=== PATIENT | male | born 1980 | race African-American/Black ===

== ENCOUNTER 2023-04-01 04:24 | Outpatient (BNV) | payer OTHER, SELFPAY | END 2023-04-14 13:37 | PROVIDERS: Admitting Provider Psychiatry & Neurology Psychiatry; Visit Provider Internal Medicine Cardiovascular Disease | DX: R94.31 Abnormal electrocardiogram [ECG] [EKG] (principal) | CPT/HCPCS: 93010 ==

== ENCOUNTER 2023-04-01 04:24 | Inpatient (IN) | payer OTHER, SELFPAY ==
[2023-04-01 04:10] VITALS: BP 128/68; PULSE 76; RESP 18; TEMP 36.6; O2SAT 97
--- NOTE | 2023-04-01 06:21 | PC.ADMIT ---
Patient is a 42 yr old male presenting to [facility] M5 from [facility] for AMS. Patient was wandering the streets for days just walking and ultimately found in an abandoned building in [place]. The patient is alert/oriented x2. RN told him where he was and he remembered over time. He had difficulty getting off the EMS stretcher and standing d/t the pain in his feet. Feet are visibly swollen through his socks. Patient states they are painful because they were wet and cold and he was walking on alot of stuff . Unsure if he was barefoot and what condition his feet are in. Visible skin is intact but odorous. He appears very paranoid and didnt seem to trust going into the treatment room. His vitals were stable. He absolutely refused to take off his socks after alot of coaxing but stated he would take them off for the doctor when they saw him. He is oriented to person and place. He doesnt make eye contact, appears to be thought blocking/ takes above average time to answer questions. He keeps his hand in front of his mouth which makes it difficult to understand him sometimes. He cannot state where he was living or where the last place he stayed was. He can tell service writer that he has a brother but doesnt know where he is or what his phone number is. He does state he smokes and would like nicotine replacement. Patient is calm and cooperative at this time. Will continue to monitor sleep overnight and behavioral issues.
[2023-04-01 07:00] VITALS: BMI 25.1
[2023-04-01] MEDS: HaloperidoL 5 MG TABLET PO ×2 (08:50→15:05)
[2023-04-01 09:46] VITALS: BP 127/66; PULSE 100; RESP 18; TEMP 36.9; O2SAT 98
--- NOTE | 2023-04-01 09:46 | HO.PSYADMNOT ---
HPI Date of Service: 04/01/23 Chief Complaint: Schizophrenia unspecified Sources of Information: patient interviewed, chart reviewed and crisis/core team assessment reviewed HPI Subjective Notes: Rea Warning and Conditional Voluntary Narrative: Pt is a 42 yo male with hx of Schizophrenia, homelessness who presents for disorganized behavior in community. On admission he is internally preoccupied, guarded, reticent. He denies AH, though internally pre-occupied. Pt is soft spoken, as personal lines underwriter gets a little closer to hear, he puts hand in front of his face as a shield; denies personal lines underwriter causing him alarm, but keeps up hand. Agrees to take Haldol. Otherwise, not willing to engage further. Past Psychiatric History: hx of psychosis, inpt admission Medical Evaluation Reviewed: Hospitalist Jaleel Pending ED note mentioned possible frostbite on b/l feet; personal lines underwriter discussed with hospitalist MATHEW who will examine [facility] Medical History (Updated 04/03/23 @ 11:59 by Corwin Ballard MD) Schizophrenia Family History: deferred Social History: homeless Trauma History: deferred Diagnostics Vital Signs (24Hr): Vital Signs - 24 hr 04/01/23 04:10 Temperature 97.9 F Pulse Rate 76 Respiratory Rate 18 Blood Pressure 128/68 Pulse Oximetry 97 Oxygen Delivery Method Room Air BMI result Body Mass Index 25.1 Meds/Allergies Allergies Allergies Allergy/AdvReac Type Severity Reaction Status Date / Time No Known Allergies Allergy Verified 04/01/23 05:25 Mental Status Exam Mental Status Exam Narrative: Pt is alert and oriented; behavior is guarded, isolative, calm; patient is not in distress; dressed in casual attire with unkempt hair, disheveled; described as good and affect blunted to constricted; eye contact avoidant; Speech is reticent, quiet; psychomotor retardation present; thought process goal directed with pronounced thought blocking; Thought content is not expressed; otherwise pertinent to relevant topics and without any delusional content, paranoid ideations or grandiosity; denies any SI/HI. Internally pre-occupied. Patients insight and judgment impaired. Assessment & Plan Assessment & Plan (1) Schizophrenia: Status: Acute Code(s): F20.9 - Schizophrenia, unspecified Plan Pt is a 42 yo male with hx of Schizophrenia, homelessness who presents for disorganized behavior in community. On admission he is internally preoccupied, guarded, reticent. He denies AH, though internally pre-occupied. Pt is soft spoken, as personal lines underwriter gets a little closer to hear, he puts hand in front of his face as a shield; denies personal lines underwriter causing him alarm, but keeps up hand. Agrees to take Haldol. Otherwise, not willing to engage further. will treat; collateral needed Plan: CV q15 min Started Haldol 5mg BID (records show hx of Zyprexa 15mg BID, however hx of poor adherence and zyprexa does not come in [facility]) gather collateral Patient educated on: diagnosis and medication risk/benefits Informed Consent: understands, does not understand and further education needed Reason for continued inpatient stay Substantial Risk for: inability to function Statement Statement: I have reviewed the history and physical and performed a pertinent examination on my patient. No changes have occurred unless specified. If the History and Physical was not performed prior to admission, the Hospitalist's service will be consulted for completing the admission physical. Time Spent With Patient Time: Total time managing care of this patient today ____ minutes.
--- NOTE | 2023-04-01 11:16 | P.CONHOSP_ITS ---
History of Present Illness Data of Consult Service Date: 04/01/23 Primary Care Provider: Unknown Physician HPI Reason for consult: Admission H&P Pt is a 42-year-old male with a PMH significant for?schizophrenia not on home medications who is admitted to M5 psychiatry unit for increasingly bizarre behaviors, disorganized speech, and disorganized thought processes. Patient apparently was found at an abandoned building in [place] after having been walking the streets and walking into traffic for the past 5 days. Patient also noted to likely be responding to internal stimuli. Patient at that time apparently complained that his hands and feet were broken, and was concerned for possible frostbite. Patient also apparently had wet and cold feet with macerated skin between his toes. Medical consult for admission H&P. ?Patient states that he has no medical conditions and is not any home prescription medications. Patient reports no acute medical complaints. Denies fever, chills, nausea, vomiting. No chest pain/pressure, palpitations. Denies fever, chills, nausea, vomiting, abdominal pain. No musculoskeletal pain. When attempt to the physical exam patient, particularly his hands and feet, patient refuses. Patient states that he does not wish to participate in the exam and states he feels fine. Review of Systems Review of Systems: Patient states he has no acute medical complaints at this time [facility] Social History Household Members: None Housing: Homeless Do you presently have visiting nurse or other home services: No Unable to assess alcohol history related to: Unable to respond Patient Tobacco Use Status: Current everyday Tobacco user Tobacco use type: Cigarette Smoked in Last 30 Days: Yes Patient Interested in Nicotine Replacement: Yes Patient Given Instructions on How to Stop Smoking: Yes Date Education Initiated: 04/01/23 Second Hand Smoke Exposure: No Use of substances other than those prescribed or required for medical reasons: Unable to respond Advance Directives: No Advance Directives Information Provided: No Recently lost weight without trying: Unsure Nutrition Risks: No Nutritional Risk Meds Allergies Allergy/AdvReac Type Severity Reaction Status Date / Time No Known Allergies Allergy Verified 04/01/23 05:25 Active Medications: Current Medications Acetaminophen (Acetaminophen 325 Mg Tablet) 650 mg PO Q6H PRN PRN Reason: Headache/Pain Mild Scale (1-3) Al Hydroxide/Mg Hydroxide (Magnesium Hydrox/Alum Hydrox 30 Ml Oral.Susp) 30 ml PO Q6H PRN PRN Reason: Heartburn/Nausea Diphenhydramine HCl (Diphenhydramine Hcl 25 Mg Capsule) 50 mg PO Q4H PRN PRN Reason: EPS/DYSTONIA Haloperidol (Haloperidol 5 Mg Tablet) 5 mg PO BID [facility] Last Admin: 04/01/23 08:50 Dose: 5 mg Hydroxyzine HCl (Hydroxyzine Hcl 25 Mg Tablet) 25 mg PO Q6H PRN PRN Reason: Anxiety Magnesium Hydroxide (Milk Of Magnesia 30 Ml Oral.Susp) 30 ml PO DAILY PRN PRN Reason: Constipation Nicotine (Nicotine 21 Mg Patch.Td24) 21 mg TRANSDERMA DAILY PRN PRN Reason: smoking cessation Nicotine Polacrilex (Nicotine Polacrilex 2 Mg Gum) 4 mg BUCCAL Q2H PRN PRN Reason: Nicotine Cravings Olanzapine (Olanzapine 5 Mg Tablet) 5 mg PO TID PRN PRN Reason: agitation Trazodone HCl (Trazodone Hcl 50 Mg Tablet) 50 mg PO BEDTIME MRX1 PRN PRN Reason: Insomnia Physical Exam Vital Signs and Narrative: Vital Signs: Last Vital Signs Temp 98.4 F 04/01/23 09:46 Pulse 100 04/01/23 09:46 Resp 18 04/01/23 09:46 BP 127/66 04/01/23 09:46 Pulse Ox 98 04/01/23 09:46 O2 Del Method Room Air 04/01/23 09:46 BMI result Body Mass Index 25.1 Patient refuses to participate in exam General: AOx3, no acute distress Resp: No respiratory distress, breathing easily, speaking in full sentences Neuro: Motor grossly intact bilaterally Psych: Flat affect Assessment and Plan (1) Medical clearance for psychiatric admission: Status: Acute Plan Pt is a 42-year-old male with a PMH significant for?schizophrenia not on home medications who is admitted to M5 psychiatry unit for increasingly bizarre behaviors, disorganized speech, and disorganized thought processes. Patient apparently was found at an abandoned building in [place] after having been walking the streets and walking into traffic for the past 5 days. Patient also noted to likely be responding to internal stimuli. Patient at that time apparently complained that his hands and feet were broken, and was concerned for possible frostbite. Patient also apparently had wet and cold feet with macerated skin between his toes. Medical consult for admission H&P. ? Mood disorder Plan as per Psychiatry Question of frostbite Patient refused examination Treat symptomatically Re-consult as necessary Patient denies any significant PMH, chronic conditions, or acute medical complaints at this time. Thank you for allowing us to participate in the care of this patient. Signing off at this time. Please re-consult if any acute complaints or issues arise.
[2023-04-02] MEDS: HaloperidoL 5 MG TABLET PO ×2 (08:13→14:21)
[2023-04-02] MEDS: Benztropine Mesylate 0.5 MG TABLET PO (08:13)
[2023-04-02 08:28] VITALS: BP 145/82; PULSE 70; RESP 16; TEMP 36.7; O2SAT 98
--- NOTE | 2023-04-02 09:08 | PC.NURSE ---
Pt offered and declined flu shot.
--- NOTE | 2023-04-02 09:46 | P.PNPSI_ITS ---
Subjective Subjective Date of Service: 04/02/23 Reason For Visit: Schizophrenia unspecified Subjective Notes: 3 Day Interim History: met with patient; discussed in team pt remains reticent, guarded with this communications writer; says he's good, does not need anything...asking about discharge, though agrees he needs more help. Difficult with which to engage. However with select staff (female nurse), much more open, saying he'll remain on unit knowing he needs further help, making appropriate requests, getting needs met... Mental Status Exam Mental Status Exam Narrative: Pt is alert and oriented; behavior is selectively guarded and reticent; calm, mostly keeping to himself; patient is not in distress; dressed in casual attire with unkempt hair, disheveled; described as good and affect blunted to constricted; eye contact avoidant; Speech is reticent, quiet; some psychomotor retardation present; thought process goal directed, still with thought blocking but much less so; Thought content is on tx; ambivalent about staying for help vs discharge; denies any SI/HI. Internally pre-occupied. Patients insight and judgment impaired but some improving. Diagnostics Vital Signs (24Hr): Vital Signs - 24 hr 04/02/23 08:28 Temperature 98.0 F Pulse Rate 70 Respiratory Rate 16 Blood Pressure 145/82 H Pulse Oximetry 98 Oxygen Delivery Method Room Air BMI result Body Mass Index 25.1 Medications Medications Current Medications Acetaminophen (Acetaminophen 325 Mg Tablet) 650 mg PO Q6H PRN PRN Reason: Headache/Pain Mild Scale (1-3) Al Hydroxide/Mg Hydroxide (Magnesium Hydrox/Alum Hydrox 30 Ml Oral.Susp) 30 ml PO Q6H PRN PRN Reason: Heartburn/Nausea Benztropine Mesylate (Benztropine Mesylate 0.5 Mg Tablet) 0.5 mg PO BID [facility] Last Admin: 04/02/23 08:13 Dose: 0.5 mg Diphenhydramine HCl (Diphenhydramine Hcl 25 Mg Capsule) 50 mg PO Q4H PRN PRN Reason: EPS/DYSTONIA Haloperidol (Haloperidol 5 Mg Tablet) 5 mg PO BID@0900,1500 [facility] Last Admin: 04/02/23 08:13 Dose: 5 mg Hydroxyzine HCl (Hydroxyzine Hcl 25 Mg Tablet) 25 mg PO Q6H PRN PRN Reason: Anxiety Magnesium Hydroxide (Milk Of Magnesia 30 Ml Oral.Susp) 30 ml PO DAILY PRN PRN Reason: Constipation Nicotine (Nicotine 21 Mg Patch.Td24) 21 mg TRANSDERMA DAILY PRN PRN Reason: smoking cessation Nicotine Polacrilex (Nicotine Polacrilex 2 Mg Gum) 4 mg BUCCAL Q2H PRN PRN Reason: Nicotine Cravings Olanzapine (Olanzapine 5 Mg Tablet) 5 mg PO TID PRN PRN Reason: agitation Trazodone HCl (Trazodone Hcl 50 Mg Tablet) 50 mg PO BEDTIME MRX1 PRN PRN Reason: Insomnia Allergies Allergies Allergy/AdvReac Type Severity Reaction Status Date / Time No Known Allergies Allergy Verified 04/01/23 05:25 Assessment & Plan Assessment & Plan (1) Medical clearance for psychiatric admission: Status: Acute Code(s): Z00.8 - Encounter for other general examination Plan Pt is a 42 yo male with hx of Schizophrenia, homelessness who presents for disorganized behavior in community, walking into street, in traffic, found in abandoned building... On admission he is internally preoccupied, guarded, reticent. He denies AH, though internally pre-occupied. Pt is soft spoken, as communications writer gets a little closer to hear, he puts hand in front of his face as a shield; denies communications writer causing him alarm, but keeps up hand. Agrees to take Haldol. Otherwise, not willing to engage further. / little better with haldo; willing to engage with female nursing staff, though still quite reticent, guarded with communications writer -again refused to have feet examined -SW getting in touch w/ outpt support team Plan: CV q15 min Increase to Haldol 10mg BID (hx of Zyprexa 15mg BID, however hx of poor adherence and zyprexa does not come in [facility]) added cogentin 0.5mg BID since records show hx of this med gather collateral -would not let Hospitalist PA examine feet; refused again today Patient educated on: diagnosis Informed Consent: does not understand and further education needed Reason for continued inpatient stay Substantial Risk for: rapid decompensation Time Spent With Patient Time: Total time managing care of this patient today ____ minutes.
[2023-04-03 09:01] VITALS: RESP 16
--- NOTE | 2023-04-03 09:37 | P.PNPSI_ITS ---
Subjective Subjective Date of Service: 04/03/23 Reason For Visit: Schizophrenia unspecified Subjective Notes: Conditional Voluntary Interim History: Patient was seen and discussed in rounds today. Records and plans were reviewed. He has having some response to internal stimuli. Affect is flat. Has some thought blocking at times. No complaints or side effects. Eating and sleeping adequately. No SI Review of Systems Review of Systems Patient states he has no acute medical complaints at this time Mental Status Exam Mental Status Exam Narrative: In today's visit he is alert, oriented and pleasant. Normal speech. Moderate eye contact. Affect is constricted. No acute signs of psychosis. Some thought blocking present. No SI. Cognitively is grossly intact. Judgment is mostly intact Diagnostics Vital Signs (24Hr): Vital Signs - 24 hr 04/03/23 09:01 Respiratory Rate 16 BMI result Body Mass Index 25.1 Medications Medications Current Medications Acetaminophen (Acetaminophen 325 Mg Tablet) 650 mg PO Q6H PRN PRN Reason: Headache/Pain Mild Scale (1-3) Al Hydroxide/Mg Hydroxide (Magnesium Hydrox/Alum Hydrox 30 Ml Oral.Susp) 30 ml PO Q6H PRN PRN Reason: Heartburn/Nausea Benztropine Mesylate (Benztropine Mesylate 0.5 Mg Tablet) 0.5 mg PO BID REPLACED BY [facility] Last Admin: 04/03/23 08:38 Dose: Not Given Diphenhydramine HCl (Diphenhydramine Hcl 25 Mg Capsule) 50 mg PO Q4H PRN PRN Reason: EPS/DYSTONIA Haloperidol (Haloperidol 5 Mg Tablet) 10 mg PO BID@0900,1500 REPLACED BY [facility] Last Admin: 04/03/23 08:38 Dose: Not Given Hydroxyzine HCl (Hydroxyzine Hcl 25 Mg Tablet) 25 mg PO Q6H PRN PRN Reason: Anxiety Magnesium Hydroxide (Milk Of Magnesia 30 Ml Oral.Susp) 30 ml PO DAILY PRN PRN Reason: Constipation Nicotine (Nicotine 21 Mg Patch.Td24) 21 mg TRANSDERMA DAILY PRN PRN Reason: smoking cessation Nicotine Polacrilex (Nicotine Polacrilex 2 Mg Gum) 4 mg BUCCAL Q2H PRN PRN Reason: Nicotine Cravings Olanzapine (Olanzapine 5 Mg Tablet) 5 mg PO TID PRN PRN Reason: agitation Trazodone HCl (Trazodone Hcl 50 Mg Tablet) 50 mg PO BEDTIME MRX1 PRN PRN Reason: Insomnia Allergies Allergies Allergy/AdvReac Type Severity Reaction Status Date / Time No Known Allergies Allergy Verified 04/01/23 05:25 Assessment & Plan Assessment & Plan (1) Medical clearance for psychiatric admission: Status: Acute Code(s): Z00.8 - Encounter for other general examination Plan Pt is a 42-year-old male with a PMH significant for?schizophrenia not on home medications who is admitted to [facility] psychiatry unit for increasingly bizarre behaviors, disorganized speech, and disorganized thought processes. Patient apparently was found at an abandoned building in [place] after having been walking the streets and walking into traffic for the past 5 days. Patient also noted to likely be responding to internal stimuli. Patient at that time apparently complained that his hands and feet were broken, and was concerned for possible frostbite. Patient also apparently had wet and cold feet with macerated skin between his toes. Medical consult for admission H&P. ? Mood disorder Plan as per Psychiatry Question of frostbite Patient refused examination Treat symptomatically Re-consult as necessary Patient denies any significant PMH, chronic conditions, or acute medical complaints at this time. Thank you for allowing us to participate in the care of this patient. Signing off at this time. Please re-consult if any acute complaints or issues arise. 04/03/23: Continue current regimen and plans Reason for continued inpatient stay Substantial Risk for: med/psych decompensation Time Spent With Patient Time: Total time managing care of this patient today ____ minutes.
[2023-04-04] MEDS: Acetaminophen 325 MG TABLET 650 MG PO (08:27)
[2023-04-04 08:32] VITALS: RESP 16
--- NOTE | 2023-04-04 09:23 | P.PNPSI_ITS ---
Subjective Subjective Date of Service: 04/04/23 Reason For Visit: Schizophrenia unspecified Subjective Notes: Conditional Voluntary Interim History: Patient was seen and discussed in rounds today. Records and plans were reviewed. He he continues to be quite isolative, mostly in his room. Today was complaining of foot and leg pain. In the emergency room there was some consideration of possible frostbite. To the nurse's observation there were some old open blisters. I also encouraged him to take a hot shower which he has been refusing to do. Eating and sleeping adequately. Refused nighttime meds and continues to complain of some tingling sensations in his feet and hands. No changes were made today Review of Systems Review of Systems Leg and foot pain Yes all other systems are reviewed and are negative Diagnostics Vital Signs (24Hr): Vital Signs - 24 hr 04/04/23 08:32 Respiratory Rate 16 BMI result Body Mass Index 25.1 Medications Medications Current Medications Acetaminophen (Acetaminophen 325 Mg Tablet) 650 mg PO Q6H PRN PRN Reason: Headache/Pain Mild Scale (1-3) Last Admin: 04/04/23 08:27 Dose: 650 mg Al Hydroxide/Mg Hydroxide (Magnesium Hydrox/Alum Hydrox 30 Ml Oral.Susp) 30 ml PO Q6H PRN PRN Reason: Heartburn/Nausea Benztropine Mesylate (Benztropine Mesylate 0.5 Mg Tablet) 0.5 mg PO BID [facility] Last Admin: 04/04/23 08:29 Dose: Not Given Diphenhydramine HCl (Diphenhydramine Hcl 25 Mg Capsule) 50 mg PO Q4H PRN PRN Reason: EPS/DYSTONIA Haloperidol (Haloperidol 5 Mg Tablet) 10 mg PO BID@0900,1500 [facility] Last Admin: 04/04/23 08:29 Dose: Not Given Hydroxyzine HCl (Hydroxyzine Hcl 25 Mg Tablet) 25 mg PO Q6H PRN PRN Reason: Anxiety Magnesium Hydroxide (Milk Of Magnesia 30 Ml Oral.Susp) 30 ml PO DAILY PRN PRN Reason: Constipation Nicotine (Nicotine 21 Mg Patch.Td24) 21 mg TRANSDERMA DAILY PRN PRN Reason: smoking cessation Nicotine Polacrilex (Nicotine Polacrilex 2 Mg Gum) 4 mg BUCCAL Q2H PRN PRN Reason: Nicotine Cravings Olanzapine (Olanzapine 5 Mg Tablet) 5 mg PO TID PRN PRN Reason: agitation Trazodone HCl (Trazodone Hcl 50 Mg Tablet) 50 mg PO BEDTIME MRX1 PRN PRN Reason: Insomnia Allergies Allergies Allergy/AdvReac Type Severity Reaction Status Date / Time No Known Allergies Allergy Verified 04/01/23 05:25 Assessment & Plan Assessment & Plan (1) Medical clearance for psychiatric admission: Status: Acute Code(s): Z00.8 - Encounter for other general examination Plan Pt is a 42 yo male with hx of Schizophrenia, homelessness who presents for disorganized behavior in community, walking into street, in traffic, found in abandoned building... On admission he is internally preoccupied, guarded, reticent. He denies AH, though internally pre-occupied. Pt is soft spoken, as food writer gets a little closer to hear, he puts hand in front of his face as a shield; denies food writer causing him alarm, but keeps up hand. Agrees to take Haldol. Otherwise, not willing to engage further. 04/02 little better with haldo; willing to engage with female nursing staff, though still quite reticent, guarded with food writer -again refused to have feet examined -SW getting in touch w/ outpt support team 04/04/2023: Continue current regimen and plans encouraged to take shower Plan: CV q15 min Increase to Haldol 10mg BID (hx of Zyprexa 15mg BID, however hx of poor adherence and zyprexa does not come in04/04/2023: Continue current regimen and plans [facility]) added cogentin 0.5mg BID since records show hx of this med gather collateral -would not let Hospitalist PA examine feet; refused again today Reason for continued inpatient stay Substantial Risk for: med/psych decompensation Time Spent With Patient Time: Total time managing care of this patient today ____ minutes.
[2023-04-05 08:13] VITALS: RESP 16
[2023-04-05] MEDS: Acetaminophen 325 MG TABLET 650 MG PO (08:18)
--- NOTE | 2023-04-05 09:51 | HO.PSYCHPN ---
Subjective Subjective Date of Service: 04/05/23 Reason For Visit: Schizophrenia unspecified Subjective Notes: Rea Warning (gave again on 04/05/23) Interim History: met with patient; discussed with team gave Rea Warning little more talkative; pt showered over weekend, out of his room a little more pt has been refusing medication...when asked why, he says because of my feet but cannot explain further. Rig Supervisor asked if pt would allow to examine his feet, but pt refuses as he di the nurse earlier. Rig Supervisor explained that perhaps if patient would take the Haldol, he might feel better about allowing his feet to be examined. pt considered and agreed this might be true and said he'd start taking the medication again (though still not willing to let his feet be examined Mental Status Exam Mental Status Exam Narrative: Pt is alert and oriented; behavior is selectively guarded and reticent but less so; calm, mostly keeping to himself; patient is not in distress; dressed in casual attire with unkempt hair, but improved hygiene/showered; mood is good but affect blunted to constricted; eye contact avoidant; Speech is reticent, quiet; some psychomotor retardation present; thought process can be goal directed; still with thought blocking but less so; Thought content is on feet, ambivalent about staying for help vs discharge; denies any SI/HI. Internally pre-occupied. Patients insight and judgment impaired but some improving. Diagnostics Vital Signs (24Hr): Vital Signs - 24 hr 04/05/23 08:13 Respiratory Rate 16 BMI result Body Mass Index 25.1 Medications Medications Current Medications Acetaminophen (Acetaminophen 325 Mg Tablet) 650 mg PO Q6H PRN PRN Reason: Headache/Pain Mild Scale (1-3) Last Admin: 04/05/23 08:18 Dose: 650 mg Al Hydroxide/Mg Hydroxide (Magnesium Hydrox/Alum Hydrox 30 Ml Oral.Susp) 30 ml PO Q6H PRN PRN Reason: Heartburn/Nausea Benztropine Mesylate (Benztropine Mesylate 0.5 Mg Tablet) 0.5 mg PO BID KATE Last Admin: 04/05/23 08:23 Dose: Not Given Diphenhydramine HCl (Diphenhydramine Hcl 25 Mg Capsule) 50 mg PO Q4H PRN PRN Reason: EPS/DYSTONIA Haloperidol (Haloperidol 5 Mg Tablet) 10 mg PO BID@0900,1500 KATE Last Admin: 04/05/23 08:23 Dose: Not Given Hydroxyzine HCl (Hydroxyzine Hcl 25 Mg Tablet) 25 mg PO Q6H PRN PRN Reason: Anxiety Magnesium Hydroxide (Milk Of Magnesia 30 Ml Oral.Susp) 30 ml PO DAILY PRN PRN Reason: Constipation Nicotine (Nicotine 21 Mg Patch.Td24) 21 mg TRANSDERMA DAILY PRN PRN Reason: smoking cessation Nicotine Polacrilex (Nicotine Polacrilex 2 Mg Gum) 4 mg BUCCAL Q2H PRN PRN Reason: Nicotine Cravings Olanzapine (Olanzapine 5 Mg Tablet) 5 mg PO TID PRN PRN Reason: agitation Trazodone HCl (Trazodone Hcl 50 Mg Tablet) 50 mg PO BEDTIME MRX1 PRN PRN Reason: Insomnia Allergies Allergies Allergy/AdvReac Type Severity Reaction Status Date / Time No Known Allergies Allergy Verified 04/01/23 05:25 Assessment & Plan Assessment & Plan (1) Medical clearance for psychiatric admission: Status: Acute Code(s): Z00.8 - Encounter for other general examination Plan Pt is a 42 yo male with hx of Schizophrenia, homelessness who presents for disorganized behavior in community, walking into street, in traffic, found in abandoned building... On admission he is internally preoccupied, guarded, reticent. He denies AH, though internally pre-occupied. Pt is soft spoken, as automobile and property underwriter gets a little closer to hear, he puts hand in front of his face as a shield; denies automobile and property underwriter causing him alarm, but keeps up hand. Agrees to take Haldol. Otherwise, not willing to engage further. 04/02 little better with haldo; willing to engage with female nursing staff, though still quite reticent, guarded with automobile and property underwriter -again refused to have feet examined -SW getting in touch w/ outpt support team 04/04/2023: Continue current regimen and plans encouraged to take shower 04/05 little more talkative; pt showered over weekend, out of his room a little more pt has been refusing medication...when asked why, he says because of my feet but cannot explain further. Rig Supervisor asked if pt would allow to examine his feet, but pt refuses as he di the nurse earlier. later agreed to take Haldol which he did, but still not willing to let his feet be examined) Plan: CV q15 min re-consult hospitalist when willing to let feet be examined (c/o pain; concern for frostbite) Continue Haldol 10mg BID (hx of Zyprexa 15mg BID, however hx of poor adherence and zyprexa does not come in04/04/2023: Continue current regimen and plans LIRIANO) added cogentin 0.5mg BID since records show hx of this med gather collateral -would not let Hospitalist PA examine feet; refused again today Patient educated on: diagnosis, medication risk/benefits and medical condition Informed Consent: understands, does not understand and further education needed Reason for continued inpatient stay Substantial Risk for: inability to function Time Spent With Patient Time: Total time managing care of this patient today ____ minutes.
[2023-04-05] MEDS: Ibuprofen 600 MG TABLET PO (10:00)
[2023-04-05] MEDS: Benztropine Mesylate 0.5 MG TABLET PO (11:53)
[2023-04-05] MEDS: HaloperidoL 5 MG TABLET 10 MG PO (11:53)
[2023-04-05 16:12] VITALS: BP 133/122; PULSE 94; RESP 17; TEMP 36.7
--- NOTE | 2023-04-05 19:36 | PC.NURSE ---
Assumed care of this pt at 19:30. Laying in bed and making appropriate eye contact with this news writer. Appears in no apparent distress. Offers no complaints @ this time. Plan of care ongoing.
--- NOTE | 2023-04-05 21:09 | PC.NURSE ---
BP was noted to be elevated earlier in shift @ 133/122. PT refused a recheck of VS. Laying in bed, not endorsing any complaints at this time. Resp even and unlabored. Refused evening medications.
[2023-04-06 08:45] VITALS: BP 167/106; PULSE 104; RESP 18; TEMP 36.9
[2023-04-06] MEDS: HaloperidoL 5 MG TABLET 10 MG PO ×2 (08:52→14:30)
[2023-04-06] MEDS: Benztropine Mesylate 0.5 MG TABLET PO (08:53)
[2023-04-06] MEDS: Ibuprofen 600 MG TABLET PO ×2 (08:53→17:53)
--- NOTE | 2023-04-06 09:48 | P.PNPSI_ITS ---
Subjective Subjective Date of Service: 04/06/23 Reason For Visit: Schizophrenia unspecified Interim History: met with patient; discussed with team Patient warmed up a little and more interactive with mortgage or loan underwriter. He has been taking medications and says that he is trying to get better. Still will not let mortgage or loan underwriter anyone examine his feet but says pain is less. Discussed how director of social media marketing is working on aftercare plans and he is thankful. He reports he is sleeping well and eating well and has no other complaints. Mental Status Exam Mental Status Exam Narrative: Pt is alert and oriented; behavior is selectively guarded and reticent but less so; calm, mostly keeping to himself; patient is not in distress; dressed in casual attire with unkempt hair, but improved hygiene/showered; mood is good but affect blunted to constricted; eye contact avoidant; Speech is reticent, quiet; some psychomotor retardation present; thought process can be goal directed; still with thought blocking but less so; Thought content is on feet, ambivalent about staying for help vs discharge; denies any SI/HI. Internally pre-occupied. Patients insight and judgment impaired but some improving. Diagnostics Vital Signs (24Hr): Vital Signs - 24 hr 04/05/23 16:12 04/06/23 08:45 Temperature 98.1 F 98.4 F Pulse Rate 94 104 H Respiratory Rate 17 18 Blood Pressure 133/122 H 167/106 H BMI result Body Mass Index 25.1 Medications Medications Current Medications Acetaminophen (Acetaminophen 325 Mg Tablet) 650 mg PO Q6H PRN PRN Reason: Headache/Pain Mild Scale (1-3) Last Admin: 04/05/23 08:18 Dose: 650 mg Al Hydroxide/Mg Hydroxide (Magnesium Hydrox/Alum Hydrox 30 Ml Oral.Susp) 30 ml PO Q6H PRN PRN Reason: Heartburn/Nausea Benztropine Mesylate (Benztropine Mesylate 0.5 Mg Tablet) 0.5 mg PO BID [facility] Last Admin: 04/06/23 08:53 Dose: 0.5 mg Diphenhydramine HCl (Diphenhydramine Hcl 25 Mg Capsule) 50 mg PO Q4H PRN PRN Reason: EPS/DYSTONIA Haloperidol (Haloperidol 5 Mg Tablet) 10 mg PO BID [facility] Last Admin: 04/06/23 08:52 Dose: 10 mg Hydroxyzine HCl (Hydroxyzine Hcl 25 Mg Tablet) 25 mg PO Q6H PRN PRN Reason: Anxiety Ibuprofen (Ibuprofen 600 Mg Tablet) 600 mg PO Q8H PRN PRN Reason: Pain, Mild (Pain Scale 1-3) Last Admin: 04/06/23 08:53 Dose: 600 mg Magnesium Hydroxide (Milk Of Magnesia 30 Ml Oral.Susp) 30 ml PO DAILY PRN PRN Reason: Constipation Nicotine (Nicotine 21 Mg Patch.Td24) 21 mg TRANSDERMA DAILY PRN PRN Reason: smoking cessation Nicotine Polacrilex (Nicotine Polacrilex 2 Mg Gum) 4 mg BUCCAL Q2H PRN PRN Reason: Nicotine Cravings Olanzapine (Olanzapine 5 Mg Tablet) 5 mg PO TID PRN PRN Reason: agitation Trazodone HCl (Trazodone Hcl 50 Mg Tablet) 50 mg PO BEDTIME MRX1 PRN PRN Reason: Insomnia Allergies Allergies Allergy/AdvReac Type Severity Reaction Status Date / Time No Known Allergies Allergy Verified 04/01/23 05:25 Assessment & Plan Assessment & Plan (1) Schizophrenia: Status: Acute Code(s): F20.9 - Schizophrenia, unspecified Plan Pt is a 42 yo male with hx of Schizophrenia, homelessness who presents for disorganized behavior in community, walking into street, in traffic, found in abandoned building... On admission he is internally preoccupied, guarded, reticent. He denies AH, though internally pre-occupied. Pt is soft spoken, as mortgage or loan underwriter gets a little closer to hear, he puts hand in front of his face as a shield; denies mortgage or loan underwriter causing him alarm, but keeps up hand. Agrees to take Haldol. Otherwise, not willing to engage further. 04/02 little better with haldo; willing to engage with female nursing staff, though still quite reticent, guarded with mortgage or loan underwriter -again refused to have feet examined -SW getting in touch w/ outpt support team 04/04/2023: Continue current regimen and plans encouraged to take shower 04/05 little more talkative; pt showered over weekend, out of his room a little more pt has been refusing medication...when asked why, he says because of my feet but cannot explain further. Pulverizer asked if pt would allow to examine his feet, but pt refuses as he di the nurse earlier. later agreed to take Haldol which he did, but still not willing to let his feet be examined) 04/06 patient warming up some, less guarded and interacting more. Still will not let anyone examine his feet but says they are not hurting as much. Patient has hypertension but given his extreme reticent, chronically guarded nature and risk of overwhelming him,, will hold off discussing this as treatment is more medication about which patient already has much ambivalence. -discussed with director of social media marketing who says patient has fairly extensive outpatient support however he is typically to disorganized to partake. Plan: CV q15 min re-consult hospitalist when willing to let feet be examined (c/o pain; concern for frostbite) Continue Haldol 10mg BID (hx of Zyprexa 15mg BID, however hx of poor adherence and zyprexa does not come in04/04/2023: Continue current regimen and plans LIRIANO) cogentin 0.5mg BID since records show hx of this med gather collateral -would not let Hospitalist PA examine feet; refused again today Patient educated on: diagnosis, medication risk/benefits and medical condition Informed Consent: further education needed Reason for continued inpatient stay Substantial Risk for: inability to function Time Spent With Patient Time: Total time managing care of this patient today ____ minutes.
[2023-04-06 14:32] VITALS: BP 146/112; PULSE 90; RESP 16; O2SAT 96
[2023-04-07 08:37] VITALS: BP 161/98; PULSE 97; RESP 16; TEMP 36.9; O2SAT 100
[2023-04-07] MEDS: HaloperidoL 5 MG TABLET 10 MG PO ×2 (08:38→14:58)
[2023-04-07] MEDS: Benztropine Mesylate 0.5 MG TABLET PO (08:39)
--- NOTE | 2023-04-07 09:52 | P.PNPSI_ITS ---
Subjective Subjective Date of Service: 04/07/23 Reason For Visit: Schizophrenia unspecified Interim History: met with patient; discussed with team Patient showered today, with encouragement also allowed his clothes to be washed. Thankfully patient allowed specific nurses to examine his feet and they report exam was unremarkable. Patient a little less guarded, says that he is good and denies AH though remains internally preoccupied. He asked about discharge but said he will remain on the unit for help with housing. Patient met with outpatient team today who also discussed housing with him. Mental Status Exam Mental Status Exam Narrative: Pt is alert and oriented; behavior is selectively guarded and reticent but less so; calm, mostly keeping to himself; patient is not in distress; dressed in casual attire with unkempt hair, but improved hygiene/showered; mood is good but affect blunted to constricted; eye contact avoidant; Speech is reticent, quiet; some psychomotor retardation present; thought process can be goal directed; still with thought blocking but less so; Thought content is on feet, ambivalent about staying for help vs discharge; denies any SI/HI. Internally pre-occupied. Patients insight and judgment impaired but some improving. Diagnostics Vital Signs (24Hr): Vital Signs - 24 hr 04/06/23 14:32 04/07/23 08:37 Temperature 98.4 F Pulse Rate 90 97 Respiratory Rate 16 16 Blood Pressure 146/112 H 161/98 H Pulse Oximetry 96 100 Oxygen Delivery Method Room Air Room Air BMI result Body Mass Index 25.1 Labs 04/08/23 14:22 Medications Medications Current Medications Acetaminophen (Acetaminophen 325 Mg Tablet) 650 mg PO Q6H PRN PRN Reason: Headache/Pain Mild Scale (1-3) Last Admin: 04/05/23 08:18 Dose: 650 mg Al Hydroxide/Mg Hydroxide (Magnesium Hydrox/Alum Hydrox 30 Ml Oral.Susp) 30 ml PO Q6H PRN PRN Reason: Heartburn/Nausea Benztropine Mesylate (Benztropine Mesylate 0.5 Mg Tablet) 0.5 mg PO BID KATE Last Admin: 04/07/23 08:39 Dose: 0.5 mg Diphenhydramine HCl (Diphenhydramine Hcl 25 Mg Capsule) 50 mg PO Q4H PRN PRN Reason: EPS/DYSTONIA Haloperidol (Haloperidol 5 Mg Tablet) 10 mg PO BID@0900,1500 KATE Last Admin: 04/07/23 08:38 Dose: 10 mg Hydroxyzine HCl (Hydroxyzine Hcl 25 Mg Tablet) 25 mg PO Q6H PRN PRN Reason: Anxiety Ibuprofen (Ibuprofen 600 Mg Tablet) 600 mg PO Q8H PRN PRN Reason: Pain, Mild (Pain Scale 1-3) Last Admin: 04/06/23 17:53 Dose: 600 mg Magnesium Hydroxide (Milk Of Magnesia 30 Ml Oral.Susp) 30 ml PO DAILY PRN PRN Reason: Constipation Nicotine (Nicotine 21 Mg Patch.Td24) 21 mg TRANSDERMA DAILY PRN PRN Reason: smoking cessation Nicotine Polacrilex (Nicotine Polacrilex 2 Mg Gum) 4 mg BUCCAL Q2H PRN PRN Reason: Nicotine Cravings Olanzapine (Olanzapine 5 Mg Tablet) 5 mg PO TID PRN PRN Reason: agitation Trazodone HCl (Trazodone Hcl 50 Mg Tablet) 50 mg PO BEDTIME MRX1 PRN PRN Reason: Insomnia Allergies Allergies Allergy/AdvReac Type Severity Reaction Status Date / Time No Known Allergies Allergy Verified 04/01/23 05:25 Assessment & Plan Assessment & Plan (1) Medical clearance for psychiatric admission: Status: Acute Code(s): Z00.8 - Encounter for other general examination Plan Pt is a 42 yo male with hx of Schizophrenia, homelessness who presents for disorganized behavior in community, walking into street, in traffic, found in abandoned building... On admission he is internally preoccupied, guarded, reticent. He denies AH, though internally pre-occupied. Pt is soft spoken, as ghost writer gets a little closer to hear, he puts hand in front of his face as a shield; denies ghost writer causing him alarm, but keeps up hand. Agrees to take Haldol. Otherwise, not willing to engage further. 04/02 little better with haldo; willing to engage with female nursing staff, though still quite reticent, guarded with ghost writer -again refused to have feet examined -SW getting in touch w/ outpt support team 04/04/2023: Continue current regimen and plans encouraged to take shower 04/05 little more talkative; pt showered over weekend, out of his room a little more pt has been refusing medication...when asked why, he says because of my feet but cannot explain further. Hvac Tech asked if pt would allow to examine his feet, but pt refuses as he di the nurse earlier. later agreed to take Haldol which he did, but still not willing to let his feet be examined) 04/06 patient warming up some, less guarded and interacting more. Still will not let anyone examine his feet but says they are not hurting as much. Patient has hypertension but given his extreme reticent, chronically guarded nature and risk of overwhelming him,, will hold off discussing this as treatment is more medication about which patient already has much ambivalence. -discussed with vp digital marketing social media and crm who says patient has fairly extensive outpatient support however he is typically to disorganized to partake. 04/07 allowed feet to be examined by a specific nurse who reports unremarkable. Patient does complain of some tingling in hands and feet which he thinks was due to being out in the cold. Little less guarded, open to staying on the unit for help with housing. Still remains internally preoccupied though denies AH. Still hypertensive. Although a little bit improved, patient is still disorganized and if discharged at this time, would end up homeless and exposed to the elements, unable to get himself halfway or take care of himself in the community. Plan: CV q15 min Continue Haldol 10mg BID (hx of Zyprexa 15mg BID, however hx of poor adherence and zyprexa does not come in04/04/2023: Continue current regimen and plans LIRIANO) added cogentin 0.5mg BID prn since records show hx of this med Patient educated on: diagnosis and medication risk/benefits Informed Consent: understands, does not understand and further education needed Reason for continued inpatient stay Substantial Risk for: inability to function Time Spent With Patient Time: Total time managing care of this patient today ____ minutes.
[2023-04-07] MEDS: Ibuprofen 600 MG TABLET PO (14:58)
[2023-04-08] MEDS: HaloperidoL 5 MG TABLET 10 MG PO ×2 (08:31→13:55)
[2023-04-08 09:32] VITALS: BP 161/106; PULSE 100; RESP 16; TEMP 36.4; O2SAT 100
[2023-04-08] MEDS: lisinopriL 5 MG TABLET PO (10:28)
[2023-04-08 10:30] VITALS: BP 157/100; PULSE 97
[2023-04-08 11:00] VITALS: BMI 26.1
[2023-04-08] MEDS: Ibuprofen 600 MG TABLET PO (13:54)
[2023-04-08 14:35] LABS: Estimated Average Glucose 108 mg/dL; Hemoglobin A1c % 5.4 % (<6.0)
[2023-04-08 14:50] LABS: Alanine Aminotransferase 32 U/L (0-40); Albumin Level 4.4 g/dL (3.5-5.0); Alkaline Phosphatase 138 U/L (39-117); Anion Gap 13 (12-20); Aspartate Amino Transferase 18 U/L (5-37); Bilirubin Total 0.2 mg/dL (0.0-1.0); Blood Urea Nitrogen 20 mg/dL (9-16); Calcium 9.9 mg/dL (8.4-10.2); Carbon Dioxide 25 mmol/L (22-29); Chloride 106 mmol/L (96-108); Estimated Glomerular Filt Rate > 60; Glucose Random 100 mg/dL (60-115); Potassium 4.3 mmol/L (3.3-5.1); Sodium 140 mmol/L (135-145); Total Protein 7.6 g/dL (6.5-8.0)
--- NOTE | 2023-04-08 16:50 | HO.PSYCHPN ---
Subjective Subjective Date of Service: 04/08/23 Reason For Visit: Schizophrenia unspecified Interim History: met with patient; discussed with team again, less guarded; still reticent, isolative; says fearful of people and avoids kitchen/day room when populated with peers. Agreed to labs and also to Anti-hypertensive understanding elevated BP's. Amenable to help w/ aftercare. Refuses LIRIANO Mental Status Exam Mental Status Exam Narrative: Pt is alert and oriented; behavior is selectively guarded and reticent but less so; calm, mostly keeping to himself; patient is not in distress; dressed in casual attire with unkempt hair, but improved hygiene/showered; mood is good but affect blunted to constricted; eye contact avoidant; Speech is reticent, quiet; some psychomotor retardation present; thought process can be goal directed; still with thought blocking but less so; Thought content is on feet, ambivalent about staying for help vs discharge; denies any SI/HI. Internally pre-occupied. Patients insight and judgment impaired but some improving. Diagnostics Vital Signs (24Hr): Vital Signs - 24 hr 04/08/23 09:32 04/08/23 10:30 Temperature 97.6 F Pulse Rate 100 97 Respiratory Rate 16 Blood Pressure 161/106 H 157/100 H Pulse Oximetry 100 BMI result Body Mass Index 26.1 Labs 04/08/23 14:22 Labs: Laboratory Results - last 48 hr 04/08/23 14:22 Sodium 140 Potassium 4.3 Chloride 106 Carbon Dioxide 25 Anion Gap 13 BUN 20 H Creatinine 0.88 Estim Creat Clear Calc 114.0 Estimated GFR > 60 Random Glucose 100 Estimat Average Glucose 108 Hemoglobin A1c % 5.4 Calcium 9.9 Total Bilirubin 0.2 AST 18 ALT 32 Alkaline Phosphatase 138 H Total Protein 7.6 Albumin 4.4 Medications Medications Current Medications Acetaminophen (Acetaminophen 325 Mg Tablet) 650 mg PO Q6H PRN PRN Reason: Headache/Pain Mild Scale (1-3) Last Admin: 04/05/23 08:18 Dose: 650 mg Al Hydroxide/Mg Hydroxide (Magnesium Hydrox/Alum Hydrox 30 Ml Oral.Susp) 30 ml PO Q6H PRN PRN Reason: Heartburn/Nausea Benztropine Mesylate (Benztropine Mesylate 0.5 Mg Tablet) 0.5 mg PO BID PRN PRN Reason: EPS symptoms Diphenhydramine HCl (Diphenhydramine Hcl 25 Mg Capsule) 50 mg PO Q4H PRN PRN Reason: EPS/DYSTONIA Haloperidol (Haloperidol 5 Mg Tablet) 10 mg PO BID@0900,1500 KATE Last Admin: 04/08/23 13:55 Dose: 10 mg Hydroxyzine HCl (Hydroxyzine Hcl 25 Mg Tablet) 25 mg PO Q6H PRN PRN Reason: Anxiety Ibuprofen (Ibuprofen 600 Mg Tablet) 600 mg PO Q8H PRN PRN Reason: Pain, Mild (Pain Scale 1-3) Last Admin: 04/08/23 13:54 Dose: 600 mg Lisinopril (Lisinopril 5 Mg Tablet) 5 mg PO DAILY KATE; Protocol Magnesium Hydroxide (Milk Of Magnesia 30 Ml Oral.Susp) 30 ml PO DAILY PRN PRN Reason: Constipation Nicotine (Nicotine 21 Mg Patch.Td24) 21 mg TRANSDERMA DAILY PRN PRN Reason: smoking cessation Nicotine Polacrilex (Nicotine Polacrilex 2 Mg Gum) 4 mg BUCCAL Q2H PRN PRN Reason: Nicotine Cravings Olanzapine (Olanzapine 5 Mg Tablet) 5 mg PO TID PRN PRN Reason: agitation Trazodone HCl (Trazodone Hcl 50 Mg Tablet) 50 mg PO BEDTIME MRX1 PRN PRN Reason: Insomnia Allergies Allergies Allergy/AdvReac Type Severity Reaction Status Date / Time No Known Allergies Allergy Verified 04/01/23 05:25 Assessment & Plan Assessment & Plan (1) Medical clearance for psychiatric admission: Status: Acute Code(s): Z00.8 - Encounter for other general examination Plan Pt is a 42 yo male with hx of Schizophrenia, homelessness who presents for disorganized behavior in community, walking into street, in traffic, found in abandoned building... On admission he is internally preoccupied, guarded, reticent. He denies AH, though internally pre-occupied. Pt is soft spoken, as song writer gets a little closer to hear, he puts hand in front of his face as a shield; denies song writer causing him alarm, but keeps up hand. Agrees to take Haldol. Otherwise, not willing to engage further. 04/02 little better with haldo; willing to engage with female nursing staff, though still quite reticent, guarded with song writer -again refused to have feet examined -SW getting in touch w/ outpt support team 04/04/2023: Continue current regimen and plans encouraged to take shower 04/05 little more talkative; pt showered over weekend, out of his room a little more pt has been refusing medication...when asked why, he says because of my feet but cannot explain further. Optical Glass Wet Inspector asked if pt would allow to examine his feet, but pt refuses as he di the nurse earlier. later agreed to take Haldol which he did, but still not willing to let his feet be examined) 04/06 patient warming up some, less guarded and interacting more. Still will not let anyone examine his feet but says they are not hurting as much. Patient has hypertension but given his extreme reticent, chronically guarded nature and risk of overwhelming him,, will hold off discussing this as treatment is more medication about which patient already has much ambivalence. -discussed with social psychologist who says patient has fairly extensive outpatient support however he is typically to disorganized to partake. 04/07 allowed feet to be examined by a specific nurse who reports unremarkable. Patient does complain of some tingling in hands and feet which he thinks was due to being out in the cold. Little less guarded, open to staying on the unit for help with housing. Still remains internally preoccupied though denies AH. Still hypertensive. Although a little bit improved, patient is still disorganized and if discharged at this time, would end up homeless and exposed to the elements, unable to get himself senior living or take care of himself in the community. 04/08 continues to gradually improve; agrees to Lisinopril 5mg for HTN; refuses LIRIANO; open to help w/ aftercare -ordered labs, HBA1C Plan: CV q15 min Start Lisinopril 5mg daily for htn Continue Haldol 10mg BID (hx of Zyprexa 15mg BID, however hx of poor adherence and zyprexa does not come in04/04/2023: Continue current regimen and plans LIRIANO) added cogentin 0.5mg BID prn since records show hx of this med Patient educated on: diagnosis, medication risk/benefits and medical condition Informed Consent: understands, does not understand and further education needed Reason for continued inpatient stay Substantial Risk for: rapid decompensation Time Spent With Patient Time: Total time managing care of this patient today ____ minutes.
[2023-04-09] MEDS: HaloperidoL 5 MG TABLET 10 MG PO ×2 (09:10→14:16)
[2023-04-09] MEDS: lisinopriL 5 MG TABLET PO (09:11)
[2023-04-09 09:12] VITALS: BP 169/105; PULSE 100; RESP 16; TEMP 36.4; O2SAT 97
[2023-04-09] MEDS: Acetaminophen 325 MG TABLET 650 MG PO ×2 (09:36→16:08)
--- NOTE | 2023-04-09 09:38 | P.PNPSI_ITS ---
Subjective Subjective Date of Service: 04/09/23 Reason For Visit: Schizophrenia unspecified Interim History: met with patient; discussed with team Overall no change in presentation, polite, quiet, mostly keeping to himself; adherent with medication. Continues to ask about discharge but continues to want to wait for housing. Denies psych symptoms though remains internally preoccupied. Refrigerating Engineer again asked about long-acting injectable to which patient said he would think about Mental Status Exam Mental Status Exam Narrative: Pt is alert and oriented; behavior is more calm, less guarded, still reticent but less so; mostly keeping to himself; patient is not in distress; dressed in casual attire with unkempt hair, but improved hygiene/showered; mood is good but affect blunted to constricted; eye contact avoidant; Speech is reticent, quiet; some psychomotor retardation present; thought process can be goal directed; still with thought blocking but less so; Thought content is on feet, ambivalent about staying for help vs discharge; denies any SI/HI. Internally pre-occupied. Patients insight and judgment impaired but improved Diagnostics Vital Signs (24Hr): Vital Signs - 24 hr 04/08/23 10:30 04/09/23 09:12 Temperature 97.6 F Pulse Rate 97 100 Respiratory Rate 16 Blood Pressure 157/100 H 169/105 H Pulse Oximetry 97 Oxygen Delivery Method Room Air BMI result Body Mass Index 26.1 Labs 04/08/23 14:22 Labs: Laboratory Results - last 48 hr 04/08/23 14:22 Sodium 140 Potassium 4.3 Chloride 106 Carbon Dioxide 25 Anion Gap 13 BUN 20 H Creatinine 0.88 Estim Creat Clear Calc 114.0 Estimated GFR > 60 Random Glucose 100 Estimat Average Glucose 108 Hemoglobin A1c % 5.4 Calcium 9.9 Total Bilirubin 0.2 AST 18 ALT 32 Alkaline Phosphatase 138 H Total Protein 7.6 Albumin 4.4 Medications Medications Current Medications Acetaminophen (Acetaminophen 325 Mg Tablet) 650 mg PO Q6H PRN PRN Reason: Headache/Pain Mild Scale (1-3) Last Admin: 04/09/23 09:36 Dose: 650 mg Al Hydroxide/Mg Hydroxide (Magnesium Hydrox/Alum Hydrox 30 Ml Oral.Susp) 30 ml PO Q6H PRN PRN Reason: Heartburn/Nausea Benztropine Mesylate (Benztropine Mesylate 0.5 Mg Tablet) 0.5 mg PO BID PRN PRN Reason: EPS symptoms Diphenhydramine HCl (Diphenhydramine Hcl 25 Mg Capsule) 50 mg PO Q4H PRN PRN Reason: EPS/DYSTONIA Haloperidol (Haloperidol 5 Mg Tablet) 10 mg PO BID@0900,1500 [facility] Last Admin: 04/09/23 09:10 Dose: 10 mg Hydroxyzine HCl (Hydroxyzine Hcl 25 Mg Tablet) 25 mg PO Q6H PRN PRN Reason: Anxiety Ibuprofen (Ibuprofen 600 Mg Tablet) 600 mg PO Q8H PRN PRN Reason: Pain, Mild (Pain Scale 1-3) Last Admin: 04/08/23 13:54 Dose: 600 mg Lisinopril (Lisinopril 5 Mg Tablet) 5 mg PO DAILY [facility]; Protocol Last Admin: 04/09/23 09:11 Dose: 5 mg Magnesium Hydroxide (Milk Of Magnesia 30 Ml Oral.Susp) 30 ml PO DAILY PRN PRN Reason: Constipation Nicotine (Nicotine 21 Mg Patch.Td24) 21 mg TRANSDERMA DAILY PRN PRN Reason: smoking cessation Nicotine Polacrilex (Nicotine Polacrilex 2 Mg Gum) 4 mg BUCCAL Q2H PRN PRN Reason: Nicotine Cravings Olanzapine (Olanzapine 5 Mg Tablet) 5 mg PO TID PRN PRN Reason: agitation Trazodone HCl (Trazodone Hcl 50 Mg Tablet) 50 mg PO BEDTIME MRX1 PRN PRN Reason: Insomnia Allergies Allergies Allergy/AdvReac Type Severity Reaction Status Date / Time No Known Allergies Allergy Verified 04/01/23 05:25 Assessment & Plan Assessment & Plan (1) Medical clearance for psychiatric admission: Status: Acute Code(s): Z00.8 - Encounter for other general examination Plan Pt is a 42 yo male with hx of Schizophrenia, homelessness who presents for disorganized behavior in community, walking into street, in traffic, found in abandoned building... On admission he is internally preoccupied, guarded, reticent. He denies AH, though internally pre-occupied. Pt is soft spoken, as engineering writer gets a little closer to hear, he puts hand in front of his face as a shield; denies engineering writer causing him alarm, but keeps up hand. Agrees to take Haldol. Otherwise, not willing to engage further. 04/02 little better with haldo; willing to engage with female nursing staff, though still quite reticent, guarded with engineering writer -again refused to have feet examined -SW getting in touch w/ outpt support team 04/04/2023: Continue current regimen and plans encouraged to take shower 04/05 little more talkative; pt showered over weekend, out of his room a little more pt has been refusing medication...when asked why, he says because of my feet but cannot explain further. Refrigerating Engineer asked if pt would allow to examine his feet, but pt refuses as he di the nurse earlier. later agreed to take Haldol which he did, but still not willing to let his feet be examined) 04/06 patient warming up some, less guarded and interacting more. Still will not let anyone examine his feet but says they are not hurting as much. Patient has hypertension but given his extreme reticent, chronically guarded nature and risk of overwhelming him,, will hold off discussing this as treatment is more medication about which patient already has much ambivalence. -discussed with social sciences research scientist who says patient has fairly extensive outpatient support however he is typically to disorganized to partake. 04/07 allowed feet to be examined by a specific nurse who reports unremarkable. Patient does complain of some tingling in hands and feet which he thinks was due to being out in the cold. Little less guarded, open to staying on the unit for help with housing. Still remains internally preoccupied though denies AH. Still hypertensive. Although a little bit improved, patient is still disorganized and if discharged at this time, would end up homeless and exposed to the elements, unable to get himself long term or take care of himself in the community. 04/08 continues to gradually improve; agrees to Lisinopril 5mg for HTN; refuses LIRIANO; open to help w/ aftercare HBA1C WNL 04/09 same presentation; not sure what about patient's baseline and what is achievable; currently tolerating Haldol 10 mg b.i.d. and unlikely to accept long-acting injectable though engineering writer will continue to ask. Wondering if higher dose of Haldol would confer increased benefit verses whether it is worth the increased risk of side effects. The fact that patient is open to housing is encouraging Plan: CV q15 min Increased to Lisinopril 10mg daily for htn Continue Haldol 10mg BID (hx of Zyprexa 15mg BID, however hx of poor adherence and zyprexa does not come in04/04/2023: Continue current regimen and plans LIRIANO) added cogentin 0.5mg BID prn since records show hx of this med Patient educated on: diagnosis and medication risk/benefits Informed Consent: understands, does not understand and further education needed Reason for continued inpatient stay Substantial Risk for: rapid decompensation Time Spent With Patient Time: Total time managing care of this patient today ____ minutes.
[2023-04-10] MEDS: Acetaminophen 325 MG TABLET 650 MG PO ×3 (03:57→16:43)
[2023-04-10 08:20] VITALS: BP 136/95; PULSE 103; RESP 16; TEMP 36.6; O2SAT 99
[2023-04-10] MEDS: lisinopriL 10 MG TABLET PO (08:27)
[2023-04-10] MEDS: HaloperidoL 5 MG TABLET 10 MG PO ×2 (08:28→14:24)
--- NOTE | 2023-04-10 10:11 | HO.PSYCHPN ---
Subjective Subjective Date of Service: 04/10/23 Reason For Visit: Schizophrenia unspecified Interim History: met With patient; discussed with team No change in presentation. Again asked about long-acting injectable which patient said he does not want. Again asks about discharge next week but continues to agree to stay for help with disposition Mental Status Exam Mental Status Exam Narrative: Pt is alert and oriented; behavior is more calm, less guarded, still reticent but less so; mostly keeping to himself; patient is not in distress; dressed in casual attire with unkempt hair, but improved hygiene/showered; mood is good but affect blunted to constricted; eye contact avoidant; Speech is reticent, quiet; some psychomotor retardation present; thought process can be goal directed; still with thought blocking but less so; Thought content is on feet, ambivalent about staying for help vs discharge; denies any SI/HI. Internally pre-occupied. Patients insight and judgment impaired but improved Diagnostics Vital Signs (24Hr): Vital Signs - 24 hr 04/10/23 08:20 Temperature 97.8 F Pulse Rate 103 H Respiratory Rate 16 Blood Pressure 136/95 H Pulse Oximetry 99 Oxygen Delivery Method Room Air BMI result Body Mass Index 26.1 Labs 04/08/23 14:22 Labs: Laboratory Results - last 48 hr 04/08/23 14:22 Sodium 140 Potassium 4.3 Chloride 106 Carbon Dioxide 25 Anion Gap 13 BUN 20 H Creatinine 0.88 Estim Creat Clear Calc 114.0 Estimated GFR > 60 Random Glucose 100 Estimat Average Glucose 108 Hemoglobin A1c % 5.4 Calcium 9.9 Total Bilirubin 0.2 AST 18 ALT 32 Alkaline Phosphatase 138 H Total Protein 7.6 Albumin 4.4 Medications Medications Current Medications Acetaminophen (Acetaminophen 325 Mg Tablet) 650 mg PO Q6H PRN PRN Reason: Headache/Pain Mild Scale (1-3) Last Admin: 04/10/23 10:03 Dose: 650 mg Al Hydroxide/Mg Hydroxide (Magnesium Hydrox/Alum Hydrox 30 Ml Oral.Susp) 30 ml PO Q6H PRN PRN Reason: Heartburn/Nausea Benztropine Mesylate (Benztropine Mesylate 0.5 Mg Tablet) 0.5 mg PO BID PRN PRN Reason: EPS symptoms Diphenhydramine HCl (Diphenhydramine Hcl 25 Mg Capsule) 50 mg PO Q4H PRN PRN Reason: EPS/DYSTONIA Haloperidol (Haloperidol 5 Mg Tablet) 10 mg PO BID@0900,1500 [facility] Last Admin: 04/10/23 08:28 Dose: 10 mg Hydroxyzine HCl (Hydroxyzine Hcl 25 Mg Tablet) 25 mg PO Q6H PRN PRN Reason: Anxiety Ibuprofen (Ibuprofen 600 Mg Tablet) 600 mg PO Q8H PRN PRN Reason: Pain, Mild (Pain Scale 1-3) Last Admin: 04/08/23 13:54 Dose: 600 mg Lisinopril (Lisinopril 10 Mg Tablet) 10 mg PO DAILY [facility]; Protocol Last Admin: 04/10/23 08:27 Dose: 10 mg Magnesium Hydroxide (Milk Of Magnesia 30 Ml Oral.Susp) 30 ml PO DAILY PRN PRN Reason: Constipation Nicotine (Nicotine 21 Mg Patch.Td24) 21 mg TRANSDERMA DAILY PRN PRN Reason: smoking cessation Nicotine Polacrilex (Nicotine Polacrilex 2 Mg Gum) 4 mg BUCCAL Q2H PRN PRN Reason: Nicotine Cravings Olanzapine (Olanzapine 5 Mg Tablet) 5 mg PO TID PRN PRN Reason: agitation Trazodone HCl (Trazodone Hcl 50 Mg Tablet) 50 mg PO BEDTIME MRX1 PRN PRN Reason: Insomnia Allergies Allergies Allergy/AdvReac Type Severity Reaction Status Date / Time No Known Allergies Allergy Verified 04/01/23 05:25 Assessment & Plan Assessment & Plan (1) Medical clearance for psychiatric admission: Status: Acute Code(s): Z00.8 - Encounter for other general examination Plan Pt is a 42 yo male with hx of Schizophrenia, homelessness who presents for disorganized behavior in community, walking into street, in traffic, found in abandoned building... On admission he is internally preoccupied, guarded, reticent. He denies AH, though internally pre-occupied. Pt is soft spoken, as typewriter aligner gets a little closer to hear, he puts hand in front of his face as a shield; denies typewriter aligner causing him alarm, but keeps up hand. Agrees to take Haldol. Otherwise, not willing to engage further. 04/02 little better with haldo; willing to engage with female nursing staff, though still quite reticent, guarded with typewriter aligner -again refused to have feet examined -SW getting in touch w/ outpt support team 04/04/2023: Continue current regimen and plans encouraged to take shower 04/05 little more talkative; pt showered over weekend, out of his room a little more pt has been refusing medication...when asked why, he says because of my feet but cannot explain further. Director Of Category Management asked if pt would allow to examine his feet, but pt refuses as he di the nurse earlier. later agreed to take Haldol which he did, but still not willing to let his feet be examined) 04/06 patient warming up some, less guarded and interacting more. Still will not let anyone examine his feet but says they are not hurting as much. Patient has hypertension but given his extreme reticent, chronically guarded nature and risk of overwhelming him,, will hold off discussing this as treatment is more medication about which patient already has much ambivalence. -discussed with 7th grade social studies teacher who says patient has fairly extensive outpatient support however he is typically to disorganized to partake. 04/07 allowed feet to be examined by a specific nurse who reports unremarkable. Patient does complain of some tingling in hands and feet which he thinks was due to being out in the cold. Little less guarded, open to staying on the unit for help with housing. Still remains internally preoccupied though denies AH. Still hypertensive. Although a little bit improved, patient is still disorganized and if discharged at this time, would end up homeless and exposed to the elements, unable to get himself senior living or take care of himself in the community. 04/08 continues to gradually improve; agrees to Lisinopril 5mg for HTN; refuses LIRIANO; open to help w/ aftercare HBA1C WNL 04/09 same presentation; not sure what about patient's baseline and what is achievable; currently tolerating Haldol 10 mg b.i.d. and unlikely to accept long-acting injectable though typewriter aligner will continue to ask. Wondering if higher dose of Haldol would confer increased benefit verses whether it is worth the increased risk of side effects. The fact that patient is open to housing is encouraging 04/10 same presentation. Although improved, patient still has very little insight and sometimes refuses medication initially only willing to take it later when it is re-presented. Director Of Category Management remains concerned that if patient were to discharge soon, he would quickly elope from where ever he was and be vulnerable Plan: CV q15 min Increased to Lisinopril 10mg daily for htn Continue Haldol 10mg BID (hx of Zyprexa 15mg BID, however hx of poor adherence and zyprexa does not come in04/04/2023: Continue current regimen and plans LIRIANO) added cogentin 0.5mg BID prn since records show hx of this med Patient educated on: diagnosis and medication risk/benefits Informed Consent: understands, does not understand and further education needed Reason for continued inpatient stay Substantial Risk for: rapid decompensation Time Spent With Patient Time: Total time managing care of this patient today ____ minutes.
[2023-04-11] MEDS: Acetaminophen 325 MG TABLET 650 MG PO ×2 (03:17→09:40)
[2023-04-11] MEDS: HaloperidoL 5 MG TABLET 10 MG PO ×3 (09:40→15:00)
[2023-04-11] MEDS: lisinopriL 10 MG TABLET PO (09:40)
[2023-04-11 09:45] VITALS: BP 143/99; PULSE 121; RESP 16; TEMP 36.5; O2SAT 100
--- NOTE | 2023-04-11 15:27 | P.PNPSI_ITS ---
Subjective Subjective Date of Service: 04/11/23 Reason For Visit: Schizophrenia unspecified Interim History: Met with patient; discussed with team Patient initially refused medications this morning but then later on was willing to take them. Patient started talking behind his hand again something he did early on in admission. Patient says he is good and denies psychiatric symptoms though remains isolative and internally preoccupied. He did however agree to increasing the Haldol dose to 3 times a day. Again asking about when a bed will be available for him next week Mental Status Exam Mental Status Exam Narrative: Pt is alert and oriented; behavior is more calm, less guarded, still reticent but less so; mostly keeping to himself; patient is not in distress; dressed in casual attire with unkempt hair, but improved hygiene/showered; mood is good but affect blunted to constricted; eye contact avoidant; Speech is reticent, quiet; some psychomotor retardation present; thought process can be goal directed; still with thought blocking but less so; Thought content is on feet, ambivalent about staying for help vs discharge; denies any SI/HI. Internally pre-occupied. Patients insight and judgment impaired but improved Diagnostics Vital Signs (24Hr): Vital Signs - 24 hr 04/11/23 09:45 Temperature 97.7 F Pulse Rate 121 H Respiratory Rate 16 Blood Pressure 143/99 H Pulse Oximetry 100 Oxygen Delivery Method Room Air BMI result Body Mass Index 26.1 Labs 04/08/23 14:22 Medications Medications Current Medications Acetaminophen (Acetaminophen 325 Mg Tablet) 650 mg PO Q6H PRN PRN Reason: Headache/Pain Mild Scale (1-3) Last Admin: 04/11/23 09:40 Dose: 650 mg Al Hydroxide/Mg Hydroxide (Magnesium Hydrox/Alum Hydrox 30 Ml Oral.Susp) 30 ml PO Q6H PRN PRN Reason: Heartburn/Nausea Benztropine Mesylate (Benztropine Mesylate 0.5 Mg Tablet) 0.5 mg PO BID PRN PRN Reason: EPS symptoms Diphenhydramine HCl (Diphenhydramine Hcl 25 Mg Capsule) 50 mg PO Q4H PRN PRN Reason: EPS/DYSTONIA Haloperidol (Haloperidol 5 Mg Tablet) 10 mg PO TID@0900,1200,1500 [facility] Last Admin: 04/11/23 15:00 Dose: 10 mg Hydroxyzine HCl (Hydroxyzine Hcl 25 Mg Tablet) 25 mg PO Q6H PRN PRN Reason: Anxiety Ibuprofen (Ibuprofen 600 Mg Tablet) 600 mg PO Q8H PRN PRN Reason: Pain, Mild (Pain Scale 1-3) Last Admin: 04/08/23 13:54 Dose: 600 mg Lisinopril (Lisinopril 10 Mg Tablet) 10 mg PO DAILY [facility]; Protocol Last Admin: 04/11/23 09:40 Dose: 10 mg Magnesium Hydroxide (Milk Of Magnesia 30 Ml Oral.Susp) 30 ml PO DAILY PRN PRN Reason: Constipation Nicotine (Nicotine 21 Mg Patch.Td24) 21 mg TRANSDERMA DAILY PRN PRN Reason: smoking cessation Nicotine Polacrilex (Nicotine Polacrilex 2 Mg Gum) 4 mg BUCCAL Q2H PRN PRN Reason: Nicotine Cravings Olanzapine (Olanzapine 5 Mg Tablet) 5 mg PO TID PRN PRN Reason: agitation Trazodone HCl (Trazodone Hcl 50 Mg Tablet) 50 mg PO BEDTIME MRX1 PRN PRN Reason: Insomnia Allergies Allergies Allergy/AdvReac Type Severity Reaction Status Date / Time No Known Allergies Allergy Verified 04/01/23 05:25 Assessment & Plan Assessment & Plan (1) Medical clearance for psychiatric admission: Status: Acute Code(s): Z00.8 - Encounter for other general examination Plan Pt is a 42 yo male with hx of Schizophrenia, homelessness who presents for disorganized behavior in community, walking into street, in traffic, found in abandoned building... On admission he is internally preoccupied, guarded, reticent. He denies AH, though internally pre-occupied. Pt is soft spoken, as comic writer gets a little closer to hear, he puts hand in front of his face as a shield; denies comic writer causing him alarm, but keeps up hand. Agrees to take Haldol. Otherwise, not willing to engage further. 04/02 little better with haldo; willing to engage with female nursing staff, though still quite reticent, guarded with comic writer -again refused to have feet examined -SW getting in touch w/ outpt support team 04/04/2023: Continue current regimen and plans encouraged to take shower 04/05 little more talkative; pt showered over weekend, out of his room a little more pt has been refusing medication...when asked why, he says because of my feet but cannot explain further. Laundry Supervisor asked if pt would allow to examine his feet, but pt refuses as he di the nurse earlier. later agreed to take Haldol which he did, but still not willing to let his feet be examined) 04/06 patient warming up some, less guarded and interacting more. Still will not let anyone examine his feet but says they are not hurting as much. Patient has hypertension but given his extreme reticent, chronically guarded nature and risk of overwhelming him,, will hold off discussing this as treatment is more medication about which patient already has much ambivalence. -discussed with renal social worker who says patient has fairly extensive outpatient support however he is typically to disorganized to partake. 04/07 allowed feet to be examined by a specific nurse who reports unremarkable. Patient does complain of some tingling in hands and feet which he thinks was due to being out in the cold. Little less guarded, open to staying on the unit for help with housing. Still remains internally preoccupied though denies AH. Still hypertensive. Although a little bit improved, patient is still disorganized and if discharged at this time, would end up homeless and exposed to the elements, unable to get himself [facility] or take care of himself in the community. 04/08 continues to gradually improve; agrees to Lisinopril 5mg for HTN; refuses LIRIANO; open to help w/ aftercare HBA1C WNL 04/09 same presentation; not sure what about patient's baseline and what is achievable; currently tolerating Haldol 10 mg b.i.d. and unlikely to accept long-acting injectable though comic writer will continue to ask. Wondering if higher dose of Haldol would confer increased benefit verses whether it is worth the increased risk of side effects. The fact that patient is open to housing is encouraging 04/10 same presentation. Although improved, patient still has very little insight and sometimes refuses medication initially only willing to take it later when it is re-presented. Laundry Supervisor remains concerned that if patient were to discharge soon, he would quickly elope from where ever he was and be vulnerable 04/11 although doing better than on admission, patient still remains with low insight and disorganized. Agrees to increasing Haldol dose to 10 mg t.i.d.. Plan: CV q15 min Continue Lisinopril 10mg daily for htn Increase to Haldol 10mg t.i.d. (hx of Zyprexa 15mg BID, however hx of poor adherence and zyprexa does not come in04/04/2023: Continue current regimen and plans LIRIANO) added cogentin 0.5mg BID prn since records show hx of this med Patient educated on: diagnosis and medication risk/benefits Informed Consent: understands Reason for continued inpatient stay Substantial Risk for: inability to function Time Spent With Patient Time: Total time managing care of this patient today ____ minutes.
--- NOTE | 2023-04-12 09:05 | HO.PSYCHPN ---
Subjective Subjective Date of Service: 04/12/23 Reason For Visit: Schizophrenia unspecified Interim History: Met with patient; discussed with team Patient taking Haldol 3 times a day; little to no change in presentation thus far. Agrees to remain waiting for potential respite. Met with outpatient team today and says he felt fine about interactions. Veterinarian Helper also met with various team members who are very concerned for patient's well being, worried that on p.o. medication he will quickly stop taking his medication, leave whatever place he is staying and wander in the community, exposed and vulnerable, to disorganized to accept help. They report he has had trouble even accepting clothing, afraid there is DNA in them. Mental Status Exam Mental Status Exam Narrative: Pt is alert and oriented; behavior is more calm, less guarded, still reticent but less so; mostly keeping to himself; patient is not in distress; dressed in casual attire with unkempt hair, but improved hygiene/showered (with prompting); mood is fine but affect blunted to constricted; eye contact avoidant; Speech is reticent, quiet; some psychomotor retardation present; thought process can be goal directed; still with thought blocking but less so; Thought content is on feet, ambivalent about staying for help vs discharge; denies any SI/HI. Internally pre-occupied. Patients insight and judgment impaired but a little improved Diagnostics Vital Signs (24Hr): Vital Signs - 24 hr 04/11/23 09:45 Temperature 97.7 F Pulse Rate 121 H Respiratory Rate 16 Blood Pressure 143/99 H Pulse Oximetry 100 Oxygen Delivery Method Room Air BMI result Body Mass Index 26.1 Labs 04/08/23 14:22 Medications Medications Current Medications Acetaminophen (Acetaminophen 325 Mg Tablet) 650 mg PO Q6H PRN PRN Reason: Headache/Pain Mild Scale (1-3) Last Admin: 04/11/23 09:40 Dose: 650 mg Al Hydroxide/Mg Hydroxide (Magnesium Hydrox/Alum Hydrox 30 Ml Oral.Susp) 30 ml PO Q6H PRN PRN Reason: Heartburn/Nausea Benztropine Mesylate (Benztropine Mesylate 0.5 Mg Tablet) 0.5 mg PO BID PRN PRN Reason: EPS symptoms Diphenhydramine HCl (Diphenhydramine Hcl 25 Mg Capsule) 50 mg PO Q4H PRN PRN Reason: EPS/DYSTONIA Haloperidol (Haloperidol 5 Mg Tablet) 10 mg PO TID@0900,1200,1500 [facility] Last Admin: 04/11/23 15:00 Dose: 10 mg Hydroxyzine HCl (Hydroxyzine Hcl 25 Mg Tablet) 25 mg PO Q6H PRN PRN Reason: Anxiety Ibuprofen (Ibuprofen 600 Mg Tablet) 600 mg PO Q8H PRN PRN Reason: Pain, Mild (Pain Scale 1-3) Last Admin: 04/08/23 13:54 Dose: 600 mg Lisinopril (Lisinopril 10 Mg Tablet) 10 mg PO DAILY [facility]; Protocol Last Admin: 04/11/23 09:40 Dose: 10 mg Magnesium Hydroxide (Milk Of Magnesia 30 Ml Oral.Susp) 30 ml PO DAILY PRN PRN Reason: Constipation Nicotine (Nicotine 21 Mg Patch.Td24) 21 mg TRANSDERMA DAILY PRN PRN Reason: smoking cessation Nicotine Polacrilex (Nicotine Polacrilex 2 Mg Gum) 4 mg BUCCAL Q2H PRN PRN Reason: Nicotine Cravings Olanzapine (Olanzapine 5 Mg Tablet) 5 mg PO TID PRN PRN Reason: agitation Trazodone HCl (Trazodone Hcl 50 Mg Tablet) 50 mg PO BEDTIME MRX1 PRN PRN Reason: Insomnia Allergies Allergies Allergy/AdvReac Type Severity Reaction Status Date / Time No Known Allergies Allergy Verified 04/01/23 05:25 Assessment & Plan Assessment & Plan (1) Medical clearance for psychiatric admission: Status: Acute Code(s): Z00.8 - Encounter for other general examination Plan Pt is a 42 yo male with hx of Schizophrenia, homelessness who presents for disorganized behavior in community, walking into street, in traffic, found in abandoned building... On admission he is internally preoccupied, guarded, reticent. He denies AH, though internally pre-occupied. Pt is soft spoken, as telegraphic typewriter installer gets a little closer to hear, he puts hand in front of his face as a shield; denies telegraphic typewriter installer causing him alarm, but keeps up hand. Agrees to take Haldol. Otherwise, not willing to engage further. 04/02 little better with haldo; willing to engage with female nursing staff, though still quite reticent, guarded with telegraphic typewriter installer -again refused to have feet examined -SW getting in touch w/ outpt support team 04/04/2023: Continue current regimen and plans encouraged to take shower 04/05 little more talkative; pt showered over weekend, out of his room a little more pt has been refusing medication...when asked why, he says because of my feet but cannot explain further. Veterinarian Helper asked if pt would allow to examine his feet, but pt refuses as he di the nurse earlier. later agreed to take Haldol which he did, but still not willing to let his feet be examined) 04/06 patient warming up some, less guarded and interacting more. Still will not let anyone examine his feet but says they are not hurting as much. Patient has hypertension but given his extreme reticent, chronically guarded nature and risk of overwhelming him,, will hold off discussing this as treatment is more medication about which patient already has much ambivalence. -discussed with child protective services social worker who says patient has fairly extensive outpatient support however he is typically to disorganized to partake. 04/07 allowed feet to be examined by a specific nurse who reports unremarkable. Patient does complain of some tingling in hands and feet which he thinks was due to being out in the cold. Little less guarded, open to staying on the unit for help with housing. Still remains internally preoccupied though denies AH. Still hypertensive. Although a little bit improved, patient is still disorganized and if discharged at this time, would end up homeless and exposed to the elements, unable to get himself fdc or take care of himself in the community. 04/08 continues to gradually improve; agrees to Lisinopril 5mg for HTN; refuses LIRIANO; open to help w/ aftercare HBA1C WNL 04/09 same presentation; not sure what about patient's baseline and what is achievable; currently tolerating Haldol 10 mg b.i.d. and unlikely to accept long-acting injectable though telegraphic typewriter installer will continue to ask. Wondering if higher dose of Haldol would confer increased benefit verses whether it is worth the increased risk of side effects. The fact that patient is open to housing is encouraging 04/10 same presentation. Although improved, patient still has very little insight and sometimes refuses medication initially only willing to take it later when it is re-presented. Veterinarian Helper remains concerned that if patient were to discharge soon, he would quickly elope from where ever he was and be vulnerable 04/11 although doing better than on admission, patient still remains with low insight and disorganized. Agrees to increasing Haldol dose to 10 mg t.i.d.. 04/12 Patient taking Haldol 3 times a day; little to no change in presentation thus far. Agrees to remain waiting for potential respite. Met with outpatient team today and says he felt fine about interactions. \Veterinarian Helper also met with various team members who are very concerned for patient's well being, worried that on p.o. medication he will quickly stop taking his medication, leave whatever place he is staying and wander in the community, exposed and vulnerable, to disorganized to accept help. Veterinarian Helper agrees that the patient has improved a little, he remains without any insight, unaware of having a psychiatric illness. Will continue with increased Haldol dose to see if that can improve symptoms, insight. Plan: CV q15 min Continue Lisinopril 10mg daily for htn Increase to Haldol 10mg t.i.d. (hx of Zyprexa 15mg BID, however hx of poor adherence and zyprexa does not come in04/04/2023: Continue current regimen and plans LIRIANO) added cogentin 0.5mg BID prn since records show hx of this med Patient educated on: diagnosis and medication risk/benefits Informed Consent: does not understand and further education needed Reason for continued inpatient stay Substantial Risk for: inability to function Time Spent With Patient Time: Total time managing care of this patient today ____ minutes.
[2023-04-12 09:13] VITALS: BP 141/81; PULSE 110; RESP 16; TEMP 36.2; O2SAT 100
[2023-04-12] MEDS: lisinopriL 10 MG TABLET PO (09:19)
[2023-04-12] MEDS: Acetaminophen 325 MG TABLET 650 MG PO ×2 (09:19→15:06)
[2023-04-12] MEDS: HaloperidoL 5 MG TABLET 10 MG PO ×3 (09:19→15:04)
[2023-04-12 18:00] VITALS: BP 145/80; PULSE 108; RESP 18; TEMP 36.7
[2023-04-13 08:00] VITALS: BP 147/99; PULSE 104; RESP 18; TEMP 36.6; O2SAT 98
[2023-04-13] MEDS: lisinopriL 10 MG TABLET PO (08:05)
[2023-04-13] MEDS: HaloperidoL 5 MG TABLET 10 MG PO ×3 (08:05→14:31)
--- NOTE | 2023-04-13 09:16 | P.PNPSI_ITS ---
Subjective Subjective Date of Service: 04/13/23 Reason For Visit: Schizophrenia unspecified Interim History: Met with patient; discussed with team; attended meeting with patient and outpatient watch caser Patient expressed that he was excited to discharge. He had a lot of questions about the new facility [facility], where was located and would he be able to get 2 different places in [place]. Patient had some ambivalence about going there but said he would definitely go there for a few months. Patient asked why procedure writer was recommending long-acting Haldol and he accepted explanation and agreed to long-acting injectable Haldol, as well as increased lisinopril for continued high blood pressure. solar installation manager Ronna has known patient for about a decade and says that in her experience, he appears to be at his highest functioning baseline Mental Status Exam Mental Status Exam Narrative: Pt is alert and oriented; behavior is more calm, less guarded, still reticent but less so; mostly keeping to himself; patient is not in distress; dressed in casual attire with unkempt hair, but improved hygiene/showered (with prompting); mood is fine but affect blunted to constricted; eye contact avoidant; Speech is reticent, quiet; some psychomotor retardation present; thought process can be goal directed; still with thought blocking but less so; Thought content is on feet, ambivalent about staying for help vs discharge; denies any SI/HI. Internally pre-occupied. Patients insight and judgment impaired but improved and at baseline Diagnostics Vital Signs (24Hr): Vital Signs - 24 hr 04/12/23 18:00 04/13/23 08:00 Temperature 98.0 F 98 F Pulse Rate 108 H 104 H Respiratory Rate 18 18 Blood Pressure 145/80 H 147/99 H Pulse Oximetry 98 Oxygen Delivery Method Room Air Room Air BMI result Body Mass Index 26.1 Labs 04/08/23 14:22 Medications Medications Current Medications Acetaminophen (Acetaminophen 325 Mg Tablet) 650 mg PO Q6H PRN PRN Reason: Headache/Pain Mild Scale (1-3) Last Admin: 04/12/23 15:06 Dose: 650 mg Al Hydroxide/Mg Hydroxide (Magnesium Hydrox/Alum Hydrox 30 Ml Oral.Susp) 30 ml PO Q6H PRN PRN Reason: Heartburn/Nausea Benztropine Mesylate (Benztropine Mesylate 0.5 Mg Tablet) 0.5 mg PO BID PRN PRN Reason: EPS symptoms Diphenhydramine HCl (Diphenhydramine Hcl 25 Mg Capsule) 50 mg PO Q4H PRN PRN Reason: EPS/DYSTONIA Haloperidol (Haloperidol 5 Mg Tablet) 10 mg PO TID@0900,1200,1500 [facility] Last Admin: 04/13/23 08:05 Dose: 10 mg Hydroxyzine HCl (Hydroxyzine Hcl 25 Mg Tablet) 25 mg PO Q6H PRN PRN Reason: Anxiety Ibuprofen (Ibuprofen 600 Mg Tablet) 600 mg PO Q8H PRN PRN Reason: Pain, Mild (Pain Scale 1-3) Last Admin: 04/08/23 13:54 Dose: 600 mg Lisinopril (Lisinopril 10 Mg Tablet) 10 mg PO DAILY [facility]; Protocol Last Admin: 04/13/23 08:05 Dose: 10 mg Magnesium Hydroxide (Milk Of Magnesia 30 Ml Oral.Susp) 30 ml PO DAILY PRN PRN Reason: Constipation Nicotine (Nicotine 21 Mg Patch.Td24) 21 mg TRANSDERMA DAILY PRN PRN Reason: smoking cessation Nicotine Polacrilex (Nicotine Polacrilex 2 Mg Gum) 4 mg BUCCAL Q2H PRN PRN Reason: Nicotine Cravings Olanzapine (Olanzapine 5 Mg Tablet) 5 mg PO TID PRN PRN Reason: agitation Trazodone HCl (Trazodone Hcl 50 Mg Tablet) 50 mg PO BEDTIME MRX1 PRN PRN Reason: Insomnia Allergies Allergies Allergy/AdvReac Type Severity Reaction Status Date / Time No Known Allergies Allergy Verified 04/01/23 05:25 Assessment & Plan Assessment & Plan (1) Medical clearance for psychiatric admission: Status: Acute Code(s): Z00.8 - Encounter for other general examination Plan Pt is a 42 yo male with hx of Schizophrenia, homelessness who presents for disorganized behavior in community, walking into street, in traffic, found in abandoned building... On admission he is internally preoccupied, guarded, reticent. He denies AH, though internally pre-occupied. Pt is soft spoken, as procedure writer gets a little closer to hear, he puts hand in front of his face as a shield; denies procedure writer causing him alarm, but keeps up hand. Agrees to take Haldol. Otherwise, not willing to engage further. 04/02 little better with haldo; willing to engage with female nursing staff, though still quite reticent, guarded with procedure writer -again refused to have feet examined -SW getting in touch w/ outpt support team 04/04/2023: Continue current regimen and plans encouraged to take shower 04/05 little more talkative; pt showered over weekend, out of his room a little more pt has been refusing medication...when asked why, he says because of my feet but cannot explain further. Filler Shredding Machine Loader asked if pt would allow to examine his feet, but pt refuses as he di the nurse earlier. later agreed to take Haldol which he did, but still not willing to let his feet be examined) 04/06 patient warming up some, less guarded and interacting more. Still will not let anyone examine his feet but says they are not hurting as much. Patient has hypertension but given his extreme reticent, chronically guarded nature and risk of overwhelming him,, will hold off discussing this as treatment is more medication about which patient already has much ambivalence. -discussed with social secretary who says patient has fairly extensive outpatient support however he is typically to disorganized to partake. 04/07 allowed feet to be examined by a specific nurse who reports unremarkable. Patient does complain of some tingling in hands and feet which he thinks was due to being out in the cold. Little less guarded, open to staying on the unit for help with housing. Still remains internally preoccupied though denies AH. Still hypertensive. Although a little bit improved, patient is still disorganized and if discharged at this time, would end up homeless and exposed to the elements, unable to get himself fdc or take care of himself in the community. 04/08 continues to gradually improve; agrees to Lisinopril 5mg for HTN; refuses LIRIANO; open to help w/ aftercare HBA1C WNL 04/09 same presentation; not sure what about patient's baseline and what is achievable; currently tolerating Haldol 10 mg b.i.d. and unlikely to accept long-acting injectable though procedure writer will continue to ask. Wondering if higher dose of Haldol would confer increased benefit verses whether it is worth the increased risk of side effects. The fact that patient is open to housing is encouraging 04/10 same presentation. Although improved, patient still has very little insight and sometimes refuses medication initially only willing to take it later when it is re-presented. Filler Shredding Machine Loader remains concerned that if patient were to discharge soon, he would quickly elope from where ever he was and be vulnerable 04/11 although doing better than on admission, patient still remains with low insight and disorganized. Agrees to increasing Haldol dose to 10 mg t.i.d.. 04/12 Patient taking Haldol 3 times a day; little to no change in presentation thus far. Agrees to remain waiting for potential respite. Met with outpatient team today and says he felt fine about interactions. \Filler Shredding Machine Loader also met with various team members who are very concerned for patient's well being, worried that on p.o. medication he will quickly stop taking his medication, leave whatever place he is staying and wander in the community, exposed and vulnerable, to disorganized to accept help. Filler Shredding Machine Loader agrees that the patient has improved a little, he remains without any insight, unaware of having a psychiatric illness. Will continue with increased Haldol dose to see if that can improve symptoms, insight. 04/13 Patient expressed that he was excited to discharge. He had a lot of questions about the new facility [facility], where was located and would he be able to get 2 different places in [place]. Patient had some ambivalence about going there but said he would definitely go there for a few months. Patient agreed to long-acting injectable Haldol, as well as increased lisinopril for continued high blood pressure. solar installation manager Ronna has known patient for about a decade and says that in her experience, he appears to be at his highest functioning baseline -although patient agrees to long-acting Haldol Decanoate, typically this is overlapped with p.o. Haldol for quite a while. -He has also been on Invega Sustenna in the past. Have now received confirmation that he was on Invega Sustenna in the past and which is now understood to be about as effective as current Haldol dose Plan: CV q15 min START Haldol Dec; Increase to Lisinopril 20mg daily for htn Continue Haldol 10mg t.i.d. (hx of Zyprexa 15mg BID, however hx of poor adherence and zyprexa does not come in04/04/2023: Continue current regimen and plans LIRIANO) added cogentin 0.5mg BID prn since records show hx of this med Patient educated on: diagnosis and medication risk/benefits Informed Consent: understands, does not understand and further education needed Reason for continued inpatient stay Substantial Risk for: rapid decompensation Time Spent With Patient Time: Total time managing care of this patient today ____ minutes.
--- NOTE | 2023-04-14 | ECG_ITS ---
Test Reason : QTC Blood Pressure : / mmHG Vent. Rate : 089 BPM Atrial Rate : 089 BPM P-R Int : 150 ms QRS Dur : 082 ms QT Int : 358 ms P-R-T Axes : 075 037 -11 degrees QTc Int : 435 ms Normal sinus rhythm Minimal voltage criteria for LVH, may be normal variant ( Sokolow-Merritt ) T wave abnormality, consider inferior ischemia Abnormal ECG No previous ECGs available Referred By: Corwin Ballard Electronically Signed By:Musa Hernandez
[2023-04-14 08:15] VITALS: BP 169/89; PULSE 115; RESP 18; TEMP 37.1; O2SAT 98
[2023-04-14] MEDS: Acetaminophen 325 MG TABLET 650 MG PO (08:17)
[2023-04-14] MEDS: lisinopriL 20 MG TABLET PO (08:17)
[2023-04-14] MEDS: HaloperidoL 5 MG TABLET 10 MG PO ×3 (08:18→14:10)
--- NOTE | 2023-04-14 17:27 | HO.PSYCHPN ---
Subjective Subjective Date of Service: 04/14/23 Reason For Visit: Schizophrenia unspecified Interim History: met with patient; discussed with team Patient again asked about living situation giving some reservation about living in a care home with a few other people; however he agreed that it was much better than a assisted living with many people No change in presentation however although patient said he would take long-acting injectable Haldol, even as nurse was drawing it up, he at the last 2nd said no to it as nurse was about 2 administered. He would not give an explanation why. EKG done and QT/QTC 358/435 Mental Status Exam Mental Status Exam Narrative: Pt is alert and oriented; behavior is more calm, less guarded, still reticent but less so; mostly keeping to himself; patient is not in distress; dressed in casual attire with unkempt hair, but improved hygiene/showered (with prompting); mood is fine but affect blunted to constricted; eye contact avoidant; Speech is reticent, quiet; some psychomotor retardation present; thought process can be goal directed; still with thought blocking but less so; Thought content is on feet, ambivalent about staying for help vs discharge; denies any SI/HI. Internally pre-occupied. Patients insight and judgment impaired but improved and at baseline Diagnostics Vital Signs (24Hr): Vital Signs - 24 hr 04/14/23 08:15 Temperature 98.7 F Pulse Rate 115 H Respiratory Rate 18 Blood Pressure 169/89 H Pulse Oximetry 98 Oxygen Delivery Method Room Air BMI result Body Mass Index 26.1 Labs 04/08/23 14:22 Medications Medications Current Medications Acetaminophen (Acetaminophen 325 Mg Tablet) 650 mg PO Q6H PRN PRN Reason: Headache/Pain Mild Scale (1-3) Last Admin: 04/14/23 08:17 Dose: 650 mg Al Hydroxide/Mg Hydroxide (Magnesium Hydrox/Alum Hydrox 30 Ml Oral.Susp) 30 ml PO Q6H PRN PRN Reason: Heartburn/Nausea Benztropine Mesylate (Benztropine Mesylate 0.5 Mg Tablet) 0.5 mg PO BID PRN PRN Reason: EPS symptoms Diphenhydramine HCl (Diphenhydramine Hcl 25 Mg Capsule) 50 mg PO Q4H PRN PRN Reason: DYSTONIA Haloperidol (Haloperidol 5 Mg Tablet) 10 mg PO TID@0900,1200,1500 KATE Last Admin: 04/14/23 14:10 Dose: 10 mg Haloperidol Decanoate (Haloperidol Decanoate 50 Mg/Ml Vial) 75 mg IM Q28D [facility] Last Admin: 04/14/23 14:58 Dose: Not Given Hydroxyzine HCl (Hydroxyzine Hcl 25 Mg Tablet) 25 mg PO Q6H PRN PRN Reason: Anxiety Ibuprofen (Ibuprofen 600 Mg Tablet) 600 mg PO Q8H PRN PRN Reason: Pain, Mild (Pain Scale 1-3) Last Admin: 04/08/23 13:54 Dose: 600 mg Lisinopril (Lisinopril 20 Mg Tablet) 20 mg PO DAILY [facility]; Protocol Last Admin: 04/14/23 08:17 Dose: 20 mg Magnesium Hydroxide (Milk Of Magnesia 30 Ml Oral.Susp) 30 ml PO DAILY PRN PRN Reason: Constipation Nicotine (Nicotine 21 Mg Patch.Td24) 21 mg TRANSDERMA DAILY PRN PRN Reason: smoking cessation Nicotine Polacrilex (Nicotine Polacrilex 2 Mg Gum) 4 mg BUCCAL Q2H PRN PRN Reason: Nicotine Cravings Olanzapine (Olanzapine 5 Mg Tablet) 5 mg PO TID PRN PRN Reason: agitation Trazodone HCl (Trazodone Hcl 50 Mg Tablet) 50 mg PO BEDTIME MRX1 PRN PRN Reason: Insomnia Allergies Allergies Allergy/AdvReac Type Severity Reaction Status Date / Time No Known Allergies Allergy Verified 04/01/23 05:25 Assessment & Plan Assessment & Plan (1) Medical clearance for psychiatric admission: Status: Acute Code(s): Z00.8 - Encounter for other general examination Plan Pt is a 42 yo male with hx of Schizophrenia, homelessness who presents for disorganized behavior in community, walking into street, in traffic, found in abandoned building... On admission he is internally preoccupied, guarded, reticent. He denies AH, though internally pre-occupied. Pt is soft spoken, as handbook writer gets a little closer to hear, he puts hand in front of his face as a shield; denies handbook writer causing him alarm, but keeps up hand. Agrees to take Haldol. Otherwise, not willing to engage further. 04/02 little better with haldo; willing to engage with female nursing staff, though still quite reticent, guarded with handbook writer -again refused to have feet examined -SW getting in touch w/ outpt support team 04/04/2023: Continue current regimen and plans encouraged to take shower 04/05 little more talkative; pt showered over weekend, out of his room a little more pt has been refusing medication...when asked why, he says because of my feet but cannot explain further. Bonding Agent asked if pt would allow to examine his feet, but pt refuses as he di the nurse earlier. later agreed to take Haldol which he did, but still not willing to let his feet be examined) 04/06 patient warming up some, less guarded and interacting more. Still will not let anyone examine his feet but says they are not hurting as much. Patient has hypertension but given his extreme reticent, chronically guarded nature and risk of overwhelming him,, will hold off discussing this as treatment is more medication about which patient already has much ambivalence. -discussed with health care social worker who says patient has fairly extensive outpatient support however he is typically to disorganized to partake. 04/07 allowed feet to be examined by a specific nurse who reports unremarkable. Patient does complain of some tingling in hands and feet which he thinks was due to being out in the cold. Little less guarded, open to staying on the unit for help with housing. Still remains internally preoccupied though denies AH. Still hypertensive. Although a little bit improved, patient is still disorganized and if discharged at this time, would end up homeless and exposed to the elements, unable to get himself assisted or take care of himself in the community. 04/08 continues to gradually improve; agrees to Lisinopril 5mg for HTN; refuses LIRIANO; open to help w/ aftercare HBA1C WNL 04/09 same presentation; not sure what about patient's baseline and what is achievable; currently tolerating Haldol 10 mg b.i.d. and unlikely to accept long-acting injectable though handbook writer will continue to ask. Wondering if higher dose of Haldol would confer increased benefit verses whether it is worth the increased risk of side effects. The fact that patient is open to housing is encouraging 04/10 same presentation. Although improved, patient still has very little insight and sometimes refuses medication initially only willing to take it later when it is re-presented. Bonding Agent remains concerned that if patient were to discharge soon, he would quickly elope from where ever he was and be vulnerable 04/11 although doing better than on admission, patient still remains with low insight and disorganized. Agrees to increasing Haldol dose to 10 mg t.i.d.. 04/12 Patient taking Haldol 3 times a day; little to no change in presentation thus far. Agrees to remain waiting for potential respite. Met with outpatient team today and says he felt fine about interactions. \Bonding Agent also met with various team members who are very concerned for patient's well being, worried that on p.o. medication he will quickly stop taking his medication, leave whatever place he is staying and wander in the community, exposed and vulnerable, to disorganized to accept help. Bonding Agent agrees that the patient has improved a little, he remains without any insight, unaware of having a psychiatric illness. Will continue with increased Haldol dose to see if that can improve symptoms, insight. 04/13 Patient expressed that he was excited to discharge. He had a lot of questions about the new facility [facility], where was located and would he be able to get 2 different places in [place]. Patient had some ambivalence about going there but said he would definitely go there for a few months. Patient agreed to long-acting injectable Haldol, as well as increased lisinopril for continued high blood pressure. disaster recovery manager Ronna has known patient for about a decade and says that in her experience, he appears to be at his highest functioning baseline -although patient agrees to long-acting Haldol Decanoate, typically this is overlapped with p.o. Haldol for quite a while. -He has also been on Invega Sustenna in the past. Have now received confirmation that he was on Invega Sustenna in the past and which is now understood to be about as effective as current Haldol dose 04/14 Refused LIRIANO; He would not give an explanation why. Will continue to discuss -EKG done and QT/QTC 358/435 Plan: CV q15 min START Haldol Dec; continue Lisinopril 20mg daily for htn Continue Haldol 10mg t.i.d. (hx of Zyprexa 15mg BID, however hx of poor adherence and zyprexa does not come in04/04/2023: Continue current regimen and plans LIRIANO) added cogentin 0.5mg BID prn since records show hx of this med Plan: CV q15 min Continue Lisinopril 10mg daily for htn Increase to Haldol 10mg t.i.d. (hx of Zyprexa 15mg BID, however hx of poor adherence and zyprexa does not come in04/04/2023: Continue current regimen and plans LIRIANO) added cogentin 0.5mg BID prn since records show hx of this med Patient educated on: diagnosis, medication risk/benefits and therapeutic strategies Informed Consent: understands, does not understand and further education needed Reason for continued inpatient stay Substantial Risk for: rapid decompensation Time Spent With Patient Time: Total time managing care of this patient today ____ minutes.
[2023-04-15 07:00] VITALS: BMI 26.6
[2023-04-15 08:14] VITALS: BP 136/98; PULSE 93; RESP 16; TEMP 36.7; O2SAT 98
[2023-04-15] MEDS: HaloperidoL 5 MG TABLET 10 MG PO ×2 (08:39→12:21)
[2023-04-15] MEDS: lisinopriL 20 MG TABLET PO (08:39)
[2023-04-15] MEDS: Acetaminophen 325 MG TABLET 650 MG PO (09:33)
[2023-04-15] MEDS: Haloperidol Decanoate 50 MG/ML VIAL 100 MG IM (14:05)
--- NOTE | 2023-04-15 15:45 | HO.PSYCHPN ---
Subjective Subjective Date of Service: 04/15/23 Reason For Visit: Schizophrenia unspecified Interim History: Met with patient; discussed with team Patient was open to long-acting injectable today. Upon inquiry, he could not explain why he had changed his mind yesterday but said that he would go ahead and receive it, which he did. Currently He remains open to staying on the unit hoping to get into respite; he also remains ambivalent about housing sometimes saying he would not mind going to a senior care Reviewed history provided by outpatient team and it appears that patient has a long history of medication noncompliance; he has done relatively well when on both Invega Sustenna and Trilafon together. However his history demonstrates that he seems to prefer an itinerant lifestyle. Also reportedly there was some intellectual disability noted. Mental Status Exam Mental Status Exam Narrative: Pt is alert and oriented; behavior is more calm, less guarded, still reticent but less so; mostly keeping to himself; patient is not in distress; dressed in casual attire with unkempt hair, but improved hygiene/showered (with prompting); mood is fine but affect blunted to constricted; eye contact avoidant; Speech is reticent, quiet; some psychomotor retardation present; thought process can be goal directed; still with thought blocking but less so; Thought content is on feet, ambivalent about staying for help vs discharge; denies any SI/HI. Internally pre-occupied. Patients insight and judgment impaired but improved and at baseline Diagnostics Vital Signs (24Hr): Vital Signs - 24 hr 04/15/23 08:14 Temperature 98.1 F Pulse Rate 93 Respiratory Rate 16 Blood Pressure 136/98 H Pulse Oximetry 98 Oxygen Delivery Method Room Air BMI result Body Mass Index 26.6 Labs 04/08/23 14:22 Medications Medications Current Medications Acetaminophen (Acetaminophen 325 Mg Tablet) 650 mg PO Q6H PRN PRN Reason: Headache/Pain Mild Scale (1-3) Last Admin: 04/15/23 09:33 Dose: 650 mg Al Hydroxide/Mg Hydroxide (Magnesium Hydrox/Alum Hydrox 30 Ml Oral.Susp) 30 ml PO Q6H PRN PRN Reason: Heartburn/Nausea Benztropine Mesylate (Benztropine Mesylate 0.5 Mg Tablet) 0.5 mg PO BID PRN PRN Reason: EPS symptoms Diphenhydramine HCl (Diphenhydramine Hcl 25 Mg Capsule) 50 mg PO Q4H PRN PRN Reason: DYSTONIA Haloperidol (Haloperidol 5 Mg Tablet) 15 mg PO BID KATE Haloperidol Decanoate (Haloperidol Decanoate 50 Mg/Ml Vial) 100 mg IM Q28D [facility] Last Admin: 04/15/23 14:05 Dose: 100 mg Hydroxyzine HCl (Hydroxyzine Hcl 25 Mg Tablet) 25 mg PO Q6H PRN PRN Reason: Anxiety Ibuprofen (Ibuprofen 600 Mg Tablet) 600 mg PO Q8H PRN PRN Reason: Pain, Mild (Pain Scale 1-3) Last Admin: 04/08/23 13:54 Dose: 600 mg Lisinopril (Lisinopril 20 Mg Tablet) 20 mg PO DAILY [facility]; Protocol Last Admin: 04/15/23 08:39 Dose: 20 mg Magnesium Hydroxide (Milk Of Magnesia 30 Ml Oral.Susp) 30 ml PO DAILY PRN PRN Reason: Constipation Nicotine (Nicotine 21 Mg Patch.Td24) 21 mg TRANSDERMA DAILY PRN PRN Reason: smoking cessation Nicotine Polacrilex (Nicotine Polacrilex 2 Mg Gum) 4 mg BUCCAL Q2H PRN PRN Reason: Nicotine Cravings Olanzapine (Olanzapine 5 Mg Tablet) 5 mg PO TID PRN PRN Reason: agitation Trazodone HCl (Trazodone Hcl 50 Mg Tablet) 50 mg PO BEDTIME MRX1 PRN PRN Reason: Insomnia Allergies Allergies Allergy/AdvReac Type Severity Reaction Status Date / Time No Known Allergies Allergy Verified 04/01/23 05:25 Assessment & Plan Assessment & Plan (1) Medical clearance for psychiatric admission: Status: Acute Code(s): Z00.8 - Encounter for other general examination Plan Pt is a 42 yo male with hx of Schizophrenia, homelessness who presents for disorganized behavior in community, walking into street, in traffic, found in abandoned building... On admission he is internally preoccupied, guarded, reticent. He denies AH, though internally pre-occupied. Pt is soft spoken, as pattern chart writer gets a little closer to hear, he puts hand in front of his face as a shield; denies pattern chart writer causing him alarm, but keeps up hand. Agrees to take Haldol. Otherwise, not willing to engage further. 04/02 little better with haldo; willing to engage with female nursing staff, though still quite reticent, guarded with pattern chart writer -again refused to have feet examined -SW getting in touch w/ outpt support team 04/04/2023: Continue current regimen and plans encouraged to take shower 04/05 little more talkative; pt showered over weekend, out of his room a little more pt has been refusing medication...when asked why, he says because of my feet but cannot explain further. [employer] 1 [employer] 5 Teacher asked if pt would allow to examine his feet, but pt refuses as he di the nurse earlier. later agreed to take Haldol which he did, but still not willing to let his feet be examined) 04/06 patient warming up some, less guarded and interacting more. Still will not let anyone examine his feet but says they are not hurting as much. Patient has hypertension but given his extreme reticent, chronically guarded nature and risk of overwhelming him,, will hold off discussing this as treatment is more medication about which patient already has much ambivalence. -discussed with hospice social worker who says patient has fairly extensive outpatient support however he is typically to disorganized to partake. 04/07 allowed feet to be examined by a specific nurse who reports unremarkable. Patient does complain of some tingling in hands and feet which he thinks was due to being out in the cold. Little less guarded, open to staying on the unit for help with housing. Still remains internally preoccupied though denies AH. Still hypertensive. Although a little bit improved, patient is still disorganized and if discharged at this time, would end up homeless and exposed to the elements, unable to get himself senior care or take care of himself in the community. 04/08 continues to gradually improve; agrees to Lisinopril 5mg for HTN; refuses LIRIANO; open to help w/ aftercare HBA1C WNL 04/09 same presentation; not sure what about patient's baseline and what is achievable; currently tolerating Haldol 10 mg b.i.d. and unlikely to accept long-acting injectable though pattern chart writer will continue to ask. Wondering if higher dose of Haldol would confer increased benefit verses whether it is worth the increased risk of side effects. The fact that patient is open to housing is encouraging 04/10 same presentation. Although improved, patient still has very little insight and sometimes refuses medication initially only willing to take it later when it is re-presented. Gr[employer] 1 [employer] 5 Teacher remains concerned that if patient were to discharge soon, he would quickly elope from where ever he was and be vulnerable 04/11 although doing better than on admission, patient still remains with low insight and disorganized. Agrees to increasing Haldol dose to 10 mg t.i.d.. 04/12 Patient taking Haldol 3 times a day; little to no change in presentation thus far. Agrees to remain waiting for potential respite. Met with outpatient team today and says he felt fine about interactions. \Gr[employer] 1 [employer] 5 Teacher also met with various team members who are very concerned for patient's well being, worried that on p.o. medication he will quickly stop taking his medication, leave whatever place he is staying and wander in the community, exposed and vulnerable, to disorganized to accept help. Gr[employer] 1 [employer] 5 Teacher agrees that the patient has improved a little, he remains without any insight, unaware of having a psychiatric illness. Will continue with increased Haldol dose to see if that can improve symptoms, insight. 04/13 Patient expressed that he was excited to discharge. He had a lot of questions about the new facility [facility], where was located and would he be able to get 2 different places in [place]. Patient had some ambivalence about going there but said he would definitely go there for a few months. Patient agreed to long-acting injectable Haldol, as well as increased lisinopril for continued high blood pressure. manager fund Ronna has known patient for about a decade and says that in her experience, he appears to be at his highest functioning baseline -although patient agrees to long-acting Haldol Decanoate, typically this is overlapped with p.o. Haldol for quite a while. -He has also been on Invega Sustenna in the past. Have now received confirmation that he was on Invega Sustenna in the past and which is now understood to be about as effective as current Haldol dose 04/14 Refused LIRIANO; He would not give an explanation why. Will continue to discuss -EKG done and QT/QTC 358/435 04/15 Patient was open to long-acting injectable today. Upon inquiry, he could not explain why he had changed his mind yesterday but said that he would go ahead and receive it, which he did. Currently He remains open to staying on the unit hoping to get into respite; he also remains ambivalent about housing sometimes saying he would not mind going to a senior care -Reviewed history provided by outpatient team and it appears that patient has a long history of medication noncompliance; he has done relatively well when on both Invega Sustenna and Trilafon together. However his history demonstrates that he seems to prefer an itinerant lifestyle. Also reportedly there was some intellectual disability noted. Plan: CV q15 min Received Haldol Dec 100mg q28 days on 04/15/23; continue Lisinopril 20mg daily for htn Continue Haldol 15 mg B.i.d overlap recommended for weeks if not months as Haldol deck reached steady state added cogentin 0.5mg BID prn since records show hx of this med Plan: CV q15 min Continue Lisinopril 10mg daily for htn Increase to Haldol 10mg t.i.d. (hx of Zyprexa 15mg BID, however hx of poor adherence and zyprexa does not come in04/04/2023: Continue current regimen and plans LIRIANO) added cogentin 0.5mg BID prn since records show hx of this med Patient educated on: diagnosis and medication risk/benefits Informed Consent: understands, does not understand and further education needed Reason for continued inpatient stay Substantial Risk for: rapid decompensation Time Spent With Patient Time: Total time managing care of this patient today ____ minutes.
[2023-04-15 19:20] VITALS: RESP 18
[2023-04-15] MEDS: HaloperidoL 5 MG TABLET 15 MG PO (20:22)
[2023-04-16 08:12] VITALS: BP 129/83; PULSE 108; RESP 18; TEMP 36.6; O2SAT 100
[2023-04-16] MEDS: lisinopriL 20 MG TABLET PO (08:17)
[2023-04-16] MEDS: HaloperidoL 5 MG TABLET 15 MG PO (08:18)
--- NOTE | 2023-04-16 10:21 | HO.PSYCHPN ---
Subjective Subjective Date of Service: 04/16/23 Reason For Visit: Schizophrenia unspecified Subjective Notes: Conditional Voluntary Interim History: Met with patient; discussed with team; pt had haldol deconoate long acting injectable yesterday; tolerating well; Pt asking about discharge; He was wanting dischage next week explained team would meet again on Wednesday and discuss plan again. Currently he remains open to staying on the unit hoping to get into respite; he also remains ambivalent about housing sometimes saying he would not mind going to a residential Medication Compliance: Yes Side effects from medications: No Attending Groups: No Review of Systems Medical Review of Systems: unchanged Review of Systems Review of Systems Leg and foot pain Yes all other systems are reviewed and are negative Mental Status Exam Mental Status Exam Narrative: Pt is alert and oriented; behavior is more calm, less guarded, still reticent but less so; mostly keeping to himself; patient is not in distress; dressed in casual attire with unkempt hair, but improved hygiene/showered (with prompting); mood is fine but affect blunted to constricted; eye contact avoidant; Speech is reticent, quiet; some psychomotor retardation present; thought process can be goal directed; still with thought blocking but less so; Thought content is on feet, ambivalent about staying for help vs discharge; denies any SI/HI. Internally pre-occupied. Patients insight and judgment impaired but improved and at baseline Diagnostics Vital Signs (24Hr): Vital Signs - 24 hr 04/15/23 19:20 04/16/23 08:12 Temperature 97.9 F Pulse Rate 108 H Respiratory Rate 18 18 Blood Pressure 129/83 Pulse Oximetry 100 Oxygen Delivery Method Room Air BMI result Body Mass Index 26.6 Labs 04/08/23 14:22 Medications Medications Current Medications Acetaminophen (Acetaminophen 325 Mg Tablet) 650 mg PO Q6H PRN PRN Reason: Headache/Pain Mild Scale (1-3) Last Admin: 04/15/23 09:33 Dose: 650 mg Al Hydroxide/Mg Hydroxide (Magnesium Hydrox/Alum Hydrox 30 Ml Oral.Susp) 30 ml PO Q6H PRN PRN Reason: Heartburn/Nausea Benztropine Mesylate (Benztropine Mesylate 0.5 Mg Tablet) 0.5 mg PO BID PRN PRN Reason: EPS symptoms Diphenhydramine HCl (Diphenhydramine Hcl 25 Mg Capsule) 50 mg PO Q4H PRN PRN Reason: DYSTONIA Haloperidol (Haloperidol 5 Mg Tablet) 15 mg PO BID [facility] Last Admin: 04/16/23 08:18 Dose: 15 mg Haloperidol Decanoate (Haloperidol Decanoate 50 Mg/Ml Vial) 100 mg IM Q28D [facility] Last Admin: 04/15/23 14:05 Dose: 100 mg Hydroxyzine HCl (Hydroxyzine Hcl 25 Mg Tablet) 25 mg PO Q6H PRN PRN Reason: Anxiety Ibuprofen (Ibuprofen 600 Mg Tablet) 600 mg PO Q8H PRN PRN Reason: Pain, Mild (Pain Scale 1-3) Last Admin: 04/08/23 13:54 Dose: 600 mg Lisinopril (Lisinopril 20 Mg Tablet) 20 mg PO DAILY [facility]; Protocol Last Admin: 04/16/23 08:17 Dose: 20 mg Magnesium Hydroxide (Milk Of Magnesia 30 Ml Oral.Susp) 30 ml PO DAILY PRN PRN Reason: Constipation Nicotine (Nicotine 21 Mg Patch.Td24) 21 mg TRANSDERMA DAILY PRN PRN Reason: smoking cessation Nicotine Polacrilex (Nicotine Polacrilex 2 Mg Gum) 4 mg BUCCAL Q2H PRN PRN Reason: Nicotine Cravings Olanzapine (Olanzapine 5 Mg Tablet) 5 mg PO TID PRN PRN Reason: agitation Trazodone HCl (Trazodone Hcl 50 Mg Tablet) 50 mg PO BEDTIME MRX1 PRN PRN Reason: Insomnia Allergies Allergies Allergy/AdvReac Type Severity Reaction Status Date / Time No Known Allergies Allergy Verified 04/01/23 05:25 Assessment & Plan Assessment & Plan (1) Medical clearance for psychiatric admission: Status: Acute Code(s): Z00.8 - Encounter for other general examination Plan Pt is a 42 yo male with hx of Schizophrenia, homelessness who presents for disorganized behavior in community, walking into street, in traffic, found in abandoned building... On admission he is internally preoccupied, guarded, reticent. He denies AH, though internally pre-occupied. Pt is soft spoken, as adjusto writer operator gets a little closer to hear, he puts hand in front of his face as a shield; denies adjusto writer operator causing him alarm, but keeps up hand. Agrees to take Haldol. Otherwise, not willing to engage further. 04/02 little better with haldo; willing to engage with female nursing staff, though still quite reticent, guarded with adjusto writer operator -again refused to have feet examined -SW getting in touch w/ outpt support team 04/04/2023: Continue current regimen and plans encouraged to take shower 04/05 little more talkative; pt showered over weekend, out of his room a little more pt has been refusing medication...when asked why, he says because of my feet but cannot explain further. Hydrogeology Professor asked if pt would allow to examine his feet, but pt refuses as he di the nurse earlier. later agreed to take Haldol which he did, but still not willing to let his feet be examined) 04/06 patient warming up some, less guarded and interacting more. Still will not let anyone examine his feet but says they are not hurting as much. Patient has hypertension but given his extreme reticent, chronically guarded nature and risk of overwhelming him,, will hold off discussing this as treatment is more medication about which patient already has much ambivalence. -discussed with social worker clinical who says patient has fairly extensive outpatient support however he is typically to disorganized to partake. 04/07 allowed feet to be examined by a specific nurse who reports unremarkable. Patient does complain of some tingling in hands and feet which he thinks was due to being out in the cold. Little less guarded, open to staying on the unit for help with housing. Still remains internally preoccupied though denies AH. Still hypertensive. Although a little bit improved, patient is still disorganized and if discharged at this time, would end up homeless and exposed to the elements, unable to get himself residential or take care of himself in the community. 04/08 continues to gradually improve; agrees to Lisinopril 5mg for HTN; refuses LIRIANO; open to help w/ aftercare HBA1C WNL 04/09 same presentation; not sure what about patient's baseline and what is achievable; currently tolerating Haldol 10 mg b.i.d. and unlikely to accept long-acting injectable though adjusto writer operator will continue to ask. Wondering if higher dose of Haldol would confer increased benefit verses whether it is worth the increased risk of side effects. The fact that patient is open to housing is encouraging 04/10 same presentation. Although improved, patient still has very little insight and sometimes refuses medication initially only willing to take it later when it is re-presented. Hydrogeology Professor remains concerned that if patient were to discharge soon, he would quickly elope from where ever he was and be vulnerable 04/11 although doing better than on admission, patient still remains with low insight and disorganized. Agrees to increasing Haldol dose to 10 mg t.i.d.. 04/12 Patient taking Haldol 3 times a day; little to no change in presentation thus far. Agrees to remain waiting for potential respite. Met with outpatient team today and says he felt fine about interactions. \Hydrogeology Professor also met with various team members who are very concerned for patient's well being, worried that on p.o. medication he will quickly stop taking his medication, leave whatever place he is staying and wander in the community, exposed and vulnerable, to disorganized to accept help. Hydrogeology Professor agrees that the patient has improved a little, he remains without any insight, unaware of having a psychiatric illness. Will continue with increased Haldol dose to see if that can improve symptoms, insight. 04/13 Patient expressed that he was excited to discharge. He had a lot of questions about the new facility [facility], where was located and would he be able to get 2 different places in [place]. Patient had some ambivalence about going there but said he would definitely go there for a few months. Patient agreed to long-acting injectable Haldol, as well as increased lisinopril for continued high blood pressure. sugar cane farm manager Ronna has known patient for about a decade and says that in her experience, he appears to be at his highest functioning baseline -although patient agrees to long-acting Haldol Decanoate, typically this is overlapped with p.o. Haldol for quite a while. -He has also been on Invega Sustenna in the past. Have now received confirmation that he was on Invega Sustenna in the past and which is now understood to be about as effective as current Haldol dose 04/14 Refused LIRIANO; He would not give an explanation why. Will continue to discuss -EKG done and QT/QTC 358/435 04/15 Patient was open to long-acting injectable today. Upon inquiry, he could not explain why he had changed his mind yesterday but said that he would go ahead and receive it, which he did. Currently He remains open to staying on the unit hoping to get into respite; he also remains ambivalent about housing sometimes saying he would not mind going to a residential -Reviewed history provided by outpatient team and it appears that patient has a long history of medication noncompliance; he has done relatively well when on both Invega Sustenna and Trilafon together. However his history demonstrates that he seems to prefer an itinerant lifestyle. Also reportedly there was some intellectual disability noted. 04/16/23 continue current treatment plan Plan: CV q15 min Received Haldol Dec 100mg q28 days on 04/15/23; continue Lisinopril 20mg daily for htn Continue Haldol 15 mg B.i.d overlap recommended for weeks if not months as Haldol deck reached steady state added cogentin 0.5mg BID prn since records show hx of this med Reason for continued inpatient stay Substantial Risk for: harm to self and inability to function Time Spent With Patient Time: Total time managing care of this patient today ____ minutes.
[2023-04-17 09:19] VITALS: BP 139/81; PULSE 89; RESP 16; TEMP 36.6; O2SAT 100
[2023-04-17] MEDS: HaloperidoL 5 MG TABLET 15 MG PO ×2 (09:20→19:55)
[2023-04-17] MEDS: lisinopriL 20 MG TABLET PO (09:20)
[2023-04-17] MEDS: Acetaminophen 325 MG TABLET 650 MG PO (09:42)
--- NOTE | 2023-04-17 12:06 | HO.PSYCHPN ---
Subjective Subjective Date of Service: 04/17/23 Reason For Visit: Schizophrenia unspecified Interim History: Met with patient; discussed with team; pt had haldol deconoate long acting injectable ; tolerating well; Pt asking about discharge; He was wanting discharged next week explained team would meet again on Wednesday and discuss plan again. He was agreeable to that; Currently he remains open to staying on the unit hoping to get into respite; he also remains ambivalent about housing sometimes saying he would not mind going to a group home Medication Compliance: Yes Side effects from medications: No Attending Groups: Intermittent Review of Systems Acute medical concerns: No Review of Systems Review of Systems Leg and foot pain Yes all other systems are reviewed and are negative Mental Status Exam Mental Status Exam Narrative: Pt is alert and oriented; behavior is more calm, less guarded, still reticent but less so; mostly keeping to himself; patient is not in distress; dressed in casual attire with unkempt hair, but improved hygiene/showered (with prompting); mood is fine but affect blunted to constricted; eye contact avoidant; Speech is reticent, quiet; some psychomotor retardation present; thought process can be goal directed; still with thought blocking but less so; Thought content is on feet, ambivalent about staying for help vs discharge; denies any SI/HI. Internally pre-occupied. Patients insight and judgment impaired but improved and at baseline Diagnostics Vital Signs (24Hr): Vital Signs - 24 hr 04/17/23 09:19 Temperature 97.9 F Pulse Rate 89 Respiratory Rate 16 Blood Pressure 139/81 Pulse Oximetry 100 Oxygen Delivery Method Room Air BMI result Body Mass Index 26.6 Labs 04/08/23 14:22 Medications Medications Current Medications Acetaminophen (Acetaminophen 325 Mg Tablet) 650 mg PO Q6H PRN PRN Reason: Headache/Pain Mild Scale (1-3) Last Admin: 04/17/23 09:42 Dose: 650 mg Al Hydroxide/Mg Hydroxide (Magnesium Hydrox/Alum Hydrox 30 Ml Oral.Susp) 30 ml PO Q6H PRN PRN Reason: Heartburn/Nausea Benztropine Mesylate (Benztropine Mesylate 0.5 Mg Tablet) 0.5 mg PO BID PRN PRN Reason: EPS symptoms Diphenhydramine HCl (Diphenhydramine Hcl 25 Mg Capsule) 50 mg PO Q4H PRN PRN Reason: DYSTONIA Haloperidol (Haloperidol 5 Mg Tablet) 15 mg PO BID [facility] Last Admin: 04/17/23 09:20 Dose: 15 mg Haloperidol Decanoate (Haloperidol Decanoate 50 Mg/Ml Vial) 100 mg IM Q28D [facility] Last Admin: 04/15/23 14:05 Dose: 100 mg Hydroxyzine HCl (Hydroxyzine Hcl 25 Mg Tablet) 25 mg PO Q6H PRN PRN Reason: Anxiety Ibuprofen (Ibuprofen 600 Mg Tablet) 600 mg PO Q8H PRN PRN Reason: Pain, Mild (Pain Scale 1-3) Last Admin: 04/08/23 13:54 Dose: 600 mg Lisinopril (Lisinopril 20 Mg Tablet) 20 mg PO DAILY [facility]; Protocol Last Admin: 04/17/23 09:20 Dose: 20 mg Magnesium Hydroxide (Milk Of Magnesia 30 Ml Oral.Susp) 30 ml PO DAILY PRN PRN Reason: Constipation Nicotine (Nicotine 21 Mg Patch.Td24) 21 mg TRANSDERMA DAILY PRN PRN Reason: smoking cessation Nicotine Polacrilex (Nicotine Polacrilex 2 Mg Gum) 4 mg BUCCAL Q2H PRN PRN Reason: Nicotine Cravings Olanzapine (Olanzapine 5 Mg Tablet) 5 mg PO TID PRN PRN Reason: agitation Trazodone HCl (Trazodone Hcl 50 Mg Tablet) 50 mg PO BEDTIME MRX1 PRN PRN Reason: Insomnia Allergies Allergies Allergy/AdvReac Type Severity Reaction Status Date / Time No Known Allergies Allergy Verified 04/01/23 05:25 Assessment & Plan Assessment & Plan (1) Medical clearance for psychiatric admission: Status: Acute Code(s): Z00.8 - Encounter for other general examination Plan Pt is a 42 yo male with hx of Schizophrenia, homelessness who presents for disorganized behavior in community, walking into street, in traffic, found in abandoned building... On admission he is internally preoccupied, guarded, reticent. He denies AH, though internally pre-occupied. Pt is soft spoken, as group underwriter gets a little closer to hear, he puts hand in front of his face as a shield; denies group underwriter causing him alarm, but keeps up hand. Agrees to take Haldol. Otherwise, not willing to engage further. 04/02 little better with haldo; willing to engage with female nursing staff, though still quite reticent, guarded with group underwriter -again refused to have feet examined -SW getting in touch w/ outpt support team 04/04/2023: Continue current regimen and plans encouraged to take shower 04/05 little more talkative; pt showered over weekend, out of his room a little more pt has been refusing medication...when asked why, he says because of my feet but cannot explain further. Gold Leaf Layer asked if pt would allow to examine his feet, but pt refuses as he di the nurse earlier. later agreed to take Haldol which he did, but still not willing to let his feet be examined) 04/06 patient warming up some, less guarded and interacting more. Still will not let anyone examine his feet but says they are not hurting as much. Patient has hypertension but given his extreme reticent, chronically guarded nature and risk of overwhelming him,, will hold off discussing this as treatment is more medication about which patient already has much ambivalence. -discussed with child protective services social worker who says patient has fairly extensive outpatient support however he is typically to disorganized to partake. 04/07 allowed feet to be examined by a specific nurse who reports unremarkable. Patient does complain of some tingling in hands and feet which he thinks was due to being out in the cold. Little less guarded, open to staying on the unit for help with housing. Still remains internally preoccupied though denies AH. Still hypertensive. Although a little bit improved, patient is still disorganized and if discharged at this time, would end up homeless and exposed to the elements, unable to get himself group home or take care of himself in the community. 04/08 continues to gradually improve; agrees to Lisinopril 5mg for HTN; refuses LIRIANO; open to help w/ aftercare HBA1C WNL 04/09 same presentation; not sure what about patient's baseline and what is achievable; currently tolerating Haldol 10 mg b.i.d. and unlikely to accept long-acting injectable though group underwriter will continue to ask. Wondering if higher dose of Haldol would confer increased benefit verses whether it is worth the increased risk of side effects. The fact that patient is open to housing is encouraging 04/10 same presentation. Although improved, patient still has very little insight and sometimes refuses medication initially only willing to take it later when it is re-presented. Gold Leaf Layer remains concerned that if patient were to discharge soon, he would quickly elope from where ever he was and be vulnerable 04/11 although doing better than on admission, patient still remains with low insight and disorganized. Agrees to increasing Haldol dose to 10 mg t.i.d.. 04/12 Patient taking Haldol 3 times a day; little to no change in presentation thus far. Agrees to remain waiting for potential respite. Met with outpatient team today and says he felt fine about interactions. \Gold Leaf Layer also met with various team members who are very concerned for patient's well being, worried that on p.o. medication he will quickly stop taking his medication, leave whatever place he is staying and wander in the community, exposed and vulnerable, to disorganized to accept help. Gold Leaf Layer agrees that the patient has improved a little, he remains without any insight, unaware of having a psychiatric illness. Will continue with increased Haldol dose to see if that can improve symptoms, insight. 04/13 Patient expressed that he was excited to discharge. He had a lot of questions about the new facility [facility], where was located and would he be able to get 2 different places in [place]. Patient had some ambivalence about going there but said he would definitely go there for a few months. Patient agreed to long-acting injectable Haldol, as well as increased lisinopril for continued high blood pressure. associate product manager Ronna has known patient for about a decade and says that in her experience, he appears to be at his highest functioning baseline -although patient agrees to long-acting Haldol Decanoate, typically this is overlapped with p.o. Haldol for quite a while. -He has also been on Invega Sustenna in the past. Have now received confirmation that he was on Invega Sustenna in the past and which is now understood to be about as effective as current Haldol dose 04/14 Refused LIRIANO; He would not give an explanation why. Will continue to discuss -EKG done and QT/QTC 358/435 04/15 Patient was open to long-acting injectable today. Upon inquiry, he could not explain why he had changed his mind yesterday but said that he would go ahead and receive it, which he did. Currently He remains open to staying on the unit hoping to get into respite; he also remains ambivalent about housing sometimes saying he would not mind going to a group home -Reviewed history provided by outpatient team and it appears that patient has a long history of medication noncompliance; he has done relatively well when on both Invega Sustenna and Trilafon together. However his history demonstrates that he seems to prefer an itinerant lifestyle. Also reportedly there was some intellectual disability noted. 04/16/23 continue current treatment plan 04/17/23 continue treatment plan Plan: CV q15 min Received Haldol Dec 100mg q28 days on 04/15/23; continue Lisinopril 20mg daily for htn Continue Haldol 15 mg B.i.d overlap recommended for weeks if not months as Haldol deck reached steady state added cogentin 0.5mg BID prn since records show hx of this med Reason for continued inpatient stay Substantial Risk for: harm to self and inability to function Time Spent With Patient Time: Total time managing care of this patient today ____ minutes.
[2023-04-17 18:00] VITALS: BP 139/85; PULSE 92; RESP 16; TEMP 36.5; O2SAT 100
[2023-04-17] MEDS: Benztropine Mesylate 0.5 MG TABLET PO (19:55)
[2023-04-18 08:00] VITALS: BP 131/83; PULSE 98; RESP 16; TEMP 36.9; O2SAT 100
[2023-04-18] MEDS: lisinopriL 20 MG TABLET PO (09:11)
[2023-04-18] MEDS: HaloperidoL 5 MG TABLET 15 MG PO ×2 (09:11→19:43)
--- NOTE | 2023-04-18 10:15 | HO.PSYCHPN ---
Subjective Subjective Date of Service: 04/18/23 Reason For Visit: Schizophrenia unspecified Interim History: Met with patient; discussed with team; pt had haldol deconoate long acting injectable ; tolerating well; Pt asking about discharge; He was wanting discharged next week explained team would meet again on Wednesday and discuss plan again. He was agreeable to that; Currently he remains open to staying on the unit hoping to get into respite; he also remains ambivalent about housing sometimes saying he would not mind going to a snf Medication Compliance: Yes Side effects from medications: No Attending Groups: Intermittent Review of Systems Acute medical concerns: No Medical Review of Systems: unchanged Review of Systems Review of Systems Leg and foot pain Yes all other systems are reviewed and are negative Mental Status Exam Mental Status Exam Narrative: Pt is alert and oriented; behavior is more calm, less guarded, still reticent but less so; mostly keeping to himself; patient is not in distress; dressed in casual attire with unkempt hair, but improved hygiene/showered (with prompting); mood is fine but affect blunted to constricted; eye contact avoidant; Speech is reticent, quiet; some psychomotor retardation present; thought process can be goal directed; still with thought blocking but less so; Thought content is on feet, ambivalent about staying for help vs discharge; denies any SI/HI. Internally pre-occupied. Patients insight and judgment impaired but improved and at baseline Diagnostics Vital Signs (24Hr): Vital Signs - 24 hr 04/17/23 18:00 04/18/23 08:00 Temperature 97.7 F 98.4 F Pulse Rate 92 98 Respiratory Rate 16 16 Blood Pressure 139/85 131/83 Pulse Oximetry 100 100 Oxygen Delivery Method Room Air BMI result Body Mass Index 26.6 Labs 04/08/23 14:22 Medications Medications Current Medications Acetaminophen (Acetaminophen 325 Mg Tablet) 650 mg PO Q6H PRN PRN Reason: Headache/Pain Mild Scale (1-3) Last Admin: 04/17/23 09:42 Dose: 650 mg Al Hydroxide/Mg Hydroxide (Magnesium Hydrox/Alum Hydrox 30 Ml Oral.Susp) 30 ml PO Q6H PRN PRN Reason: Heartburn/Nausea Benztropine Mesylate (Benztropine Mesylate 0.5 Mg Tablet) 0.5 mg PO BID PRN PRN Reason: EPS symptoms Last Admin: 04/17/23 19:55 Dose: 0.5 mg Diphenhydramine HCl (Diphenhydramine Hcl 25 Mg Capsule) 50 mg PO Q4H PRN PRN Reason: DYSTONIA Haloperidol (Haloperidol 5 Mg Tablet) 15 mg PO BID [facility] Last Admin: 04/18/23 09:11 Dose: 15 mg Haloperidol Decanoate (Haloperidol Decanoate 50 Mg/Ml Vial) 100 mg IM Q28D [facility] Last Admin: 04/15/23 14:05 Dose: 100 mg Hydroxyzine HCl (Hydroxyzine Hcl 25 Mg Tablet) 25 mg PO Q6H PRN PRN Reason: Anxiety Ibuprofen (Ibuprofen 600 Mg Tablet) 600 mg PO Q8H PRN PRN Reason: Pain, Mild (Pain Scale 1-3) Last Admin: 04/08/23 13:54 Dose: 600 mg Lisinopril (Lisinopril 20 Mg Tablet) 20 mg PO DAILY [facility]; Protocol Last Admin: 04/18/23 09:11 Dose: 20 mg Magnesium Hydroxide (Milk Of Magnesia 30 Ml Oral.Susp) 30 ml PO DAILY PRN PRN Reason: Constipation Nicotine (Nicotine 21 Mg Patch.Td24) 21 mg TRANSDERMA DAILY PRN PRN Reason: smoking cessation Nicotine Polacrilex (Nicotine Polacrilex 2 Mg Gum) 4 mg BUCCAL Q2H PRN PRN Reason: Nicotine Cravings Olanzapine (Olanzapine 5 Mg Tablet) 5 mg PO TID PRN PRN Reason: agitation Trazodone HCl (Trazodone Hcl 50 Mg Tablet) 50 mg PO BEDTIME MRX1 PRN PRN Reason: Insomnia Allergies Allergies Allergy/AdvReac Type Severity Reaction Status Date / Time No Known Allergies Allergy Verified 04/01/23 05:25 Assessment & Plan Assessment & Plan (1) Medical clearance for psychiatric admission: Status: Acute Code(s): Z00.8 - Encounter for other general examination Plan Pt is a 42 yo male with hx of Schizophrenia, homelessness who presents for disorganized behavior in community, walking into street, in traffic, found in abandoned building... On admission he is internally preoccupied, guarded, reticent. He denies AH, though internally pre-occupied. Pt is soft spoken, as parts data writer gets a little closer to hear, he puts hand in front of his face as a shield; denies parts data writer causing him alarm, but keeps up hand. Agrees to take Haldol. Otherwise, not willing to engage further. 04/02 little better with haldo; willing to engage with female nursing staff, though still quite reticent, guarded with parts data writer -again refused to have feet examined -SW getting in touch w/ outpt support team 04/04/2023: Continue current regimen and plans encouraged to take shower 04/05 little more talkative; pt showered over weekend, out of his room a little more pt has been refusing medication...when asked why, he says because of my feet but cannot explain further. Advertising Sales Consultant asked if pt would allow to examine his feet, but pt refuses as he di the nurse earlier. later agreed to take Haldol which he did, but still not willing to let his feet be examined) 04/06 patient warming up some, less guarded and interacting more. Still will not let anyone examine his feet but says they are not hurting as much. Patient has hypertension but given his extreme reticent, chronically guarded nature and risk of overwhelming him,, will hold off discussing this as treatment is more medication about which patient already has much ambivalence. -discussed with social insurance specialist who says patient has fairly extensive outpatient support however he is typically to disorganized to partake. 04/07 allowed feet to be examined by a specific nurse who reports unremarkable. Patient does complain of some tingling in hands and feet which he thinks was due to being out in the cold. Little less guarded, open to staying on the unit for help with housing. Still remains internally preoccupied though denies AH. Still hypertensive. Although a little bit improved, patient is still disorganized and if discharged at this time, would end up homeless and exposed to the elements, unable to get himself snf or take care of himself in the community. 04/08 continues to gradually improve; agrees to Lisinopril 5mg for HTN; refuses LIRIANO; open to help w/ aftercare HBA1C WNL 04/09 same presentation; not sure what about patient's baseline and what is achievable; currently tolerating Haldol 10 mg b.i.d. and unlikely to accept long-acting injectable though parts data writer will continue to ask. Wondering if higher dose of Haldol would confer increased benefit verses whether it is worth the increased risk of side effects. The fact that patient is open to housing is encouraging 04/10 same presentation. Although improved, patient still has very little insight and sometimes refuses medication initially only willing to take it later when it is re-presented. Advertising Sales Consultant remains concerned that if patient were to discharge soon, he would quickly elope from where ever he was and be vulnerable 04/11 although doing better than on admission, patient still remains with low insight and disorganized. Agrees to increasing Haldol dose to 10 mg t.i.d.. 04/12 Patient taking Haldol 3 times a day; little to no change in presentation thus far. Agrees to remain waiting for potential respite. Met with outpatient team today and says he felt fine about interactions. \Advertising Sales Consultant also met with various team members who are very concerned for patient's well being, worried that on p.o. medication he will quickly stop taking his medication, leave whatever place he is staying and wander in the community, exposed and vulnerable, to disorganized to accept help. Advertising Sales Consultant agrees that the patient has improved a little, he remains without any insight, unaware of having a psychiatric illness. Will continue with increased Haldol dose to see if that can improve symptoms, insight. 04/13 Patient expressed that he was excited to discharge. He had a lot of questions about the new facility [facility], where was located and would he be able to get 2 different places in [place]. Patient had some ambivalence about going there but said he would definitely go there for a few months. Patient agreed to long-acting injectable Haldol, as well as increased lisinopril for continued high blood pressure. manager field investigations Ronna has known patient for about a decade and says that in her experience, he appears to be at his highest functioning baseline -although patient agrees to long-acting Haldol Decanoate, typically this is overlapped with p.o. Haldol for quite a while. -He has also been on Invega Sustenna in the past. Have now received confirmation that he was on Invega Sustenna in the past and which is now understood to be about as effective as current Haldol dose 04/14 Refused LIRIANO; He would not give an explanation why. Will continue to discuss -EKG done and QT/QTC 358/435 04/15 Patient was open to long-acting injectable today. Upon inquiry, he could not explain why he had changed his mind yesterday but said that he would go ahead and receive it, which he did. Currently He remains open to staying on the unit hoping to get into respite; he also remains ambivalent about housing sometimes saying he would not mind going to a snf -Reviewed history provided by outpatient team and it appears that patient has a long history of medication noncompliance; he has done relatively well when on both Invega Sustenna and Trilafon together. However his history demonstrates that he seems to prefer an itinerant lifestyle. Also reportedly there was some intellectual disability noted. 04/16/23 continue current treatment plan 04/17/23 continue treatment plan 04/18/23 continue tx plan Plan: CV q15 min Received Haldol Dec 100mg q28 days on 04/15/23; continue Lisinopril 20mg daily for htn Continue Haldol 15 mg B.i.d overlap recommended for weeks if not months as Haldol deck reached steady state added cogentin 0.5mg BID prn since records show hx of this med Reason for continued inpatient stay Substantial Risk for: harm to self, inability to function and rapid decompensation Time Spent With Patient Time: Total time managing care of this patient today ____ minutes.
[2023-04-18] MEDS: Acetaminophen 325 MG TABLET 650 MG PO (12:13)
[2023-04-18 16:07] VITALS: BP 136/86; PULSE 101; RESP 18; TEMP 36.3; O2SAT 99
--- NOTE | 2023-04-19 07:45 | P.PNPSI_ITS ---
Subjective Subjective Date of Service: 04/19/23 Reason For Visit: Schizophrenia unspecified Interim History: met with patient; discussed with team; reviewed weekend notes mostly same presentation however, today, pt sitting in dayroom, which is improvement as he's typically keeping to himself. Pt talked about being afraid of getting a ride to Respite since he won't know the hook up driver; says he's more afraid of this than if he were to get a cabdriver. Mental Status Exam Mental Status Exam Narrative: Pt is alert and oriented; behavior is more calm, less guarded, still reticent but less so; mostly keeping to himself; patient is not in distress; dressed in casual attire with unkempt hair, but improved hygiene/showered (with prompting); mood is ok but affect blunted to constricted; eye contact avoidant; Speech is reticent, quiet; some psychomotor retardation present; thought process can be goal directed; still with thought blocking but less so; Thought content is on feet, ambivalent about staying for help vs discharge; denies any SI/HI. Internally pre-occupied. Patients insight and judgment impaired but improved and at baseline Diagnostics Vital Signs (24Hr): Vital Signs - 24 hr 04/18/23 08:00 04/18/23 16:07 Temperature 98.4 F 97.4 F Pulse Rate 98 101 H Respiratory Rate 16 18 Blood Pressure 131/83 136/86 Pulse Oximetry 100 99 Oxygen Delivery Method Room Air BMI result Body Mass Index 26.6 Labs 04/08/23 14:22 Medications Medications Current Medications Acetaminophen (Acetaminophen 325 Mg Tablet) 650 mg PO Q6H PRN PRN Reason: Headache/Pain Mild Scale (1-3) Last Admin: 04/18/23 12:13 Dose: 650 mg Al Hydroxide/Mg Hydroxide (Magnesium Hydrox/Alum Hydrox 30 Ml Oral.Susp) 30 ml PO Q6H PRN PRN Reason: Heartburn/Nausea Benztropine Mesylate (Benztropine Mesylate 0.5 Mg Tablet) 0.5 mg PO BID PRN PRN Reason: EPS symptoms Last Admin: 04/17/23 19:55 Dose: 0.5 mg Diphenhydramine HCl (Diphenhydramine Hcl 25 Mg Capsule) 50 mg PO Q4H PRN PRN Reason: DYSTONIA Haloperidol (Haloperidol 5 Mg Tablet) 15 mg PO BID [facility] Last Admin: 04/18/23 19:43 Dose: 15 mg Haloperidol Decanoate (Haloperidol Decanoate 50 Mg/Ml Vial) 100 mg IM Q28D [facility] Last Admin: 04/15/23 14:05 Dose: 100 mg Hydroxyzine HCl (Hydroxyzine Hcl 25 Mg Tablet) 25 mg PO Q6H PRN PRN Reason: Anxiety Ibuprofen (Ibuprofen 600 Mg Tablet) 600 mg PO Q8H PRN PRN Reason: Pain, Mild (Pain Scale 1-3) Last Admin: 04/08/23 13:54 Dose: 600 mg Lisinopril (Lisinopril 20 Mg Tablet) 20 mg PO DAILY [facility]; Protocol Last Admin: 04/18/23 09:11 Dose: 20 mg Magnesium Hydroxide (Milk Of Magnesia 30 Ml Oral.Susp) 30 ml PO DAILY PRN PRN Reason: Constipation Nicotine (Nicotine 21 Mg Patch.Td24) 21 mg TRANSDERMA DAILY PRN PRN Reason: smoking cessation Nicotine Polacrilex (Nicotine Polacrilex 2 Mg Gum) 4 mg BUCCAL Q2H PRN PRN Reason: Nicotine Cravings Olanzapine (Olanzapine 5 Mg Tablet) 5 mg PO TID PRN PRN Reason: agitation Trazodone HCl (Trazodone Hcl 50 Mg Tablet) 50 mg PO BEDTIME MRX1 PRN PRN Reason: Insomnia Allergies Allergies Allergy/AdvReac Type Severity Reaction Status Date / Time No Known Allergies Allergy Verified 04/01/23 05:25 Assessment & Plan Assessment & Plan (1) Schizophrenia: Status: Acute Code(s): F20.9 - Schizophrenia, unspecified Plan Pt is a 42 yo male with hx of Schizophrenia, homelessness who presents for disorganized behavior in community, walking into street, in traffic, found in abandoned building... On admission he is internally preoccupied, guarded, reticent. He denies AH, though internally pre-occupied. Pt is soft spoken, as web content writer gets a little closer to hear, he puts hand in front of his face as a shield; denies web content writer causing him alarm, but keeps up hand. Agrees to take Haldol. Otherwise, not willing to engage further. 04/02 little better with haldo; willing to engage with female nursing staff, though still quite reticent, guarded with web content writer -again refused to have feet examined -SW getting in touch w/ outpt support team 04/04/2023: Continue current regimen and plans encouraged to take shower 04/05 little more talkative; pt showered over weekend, out of his room a little more pt has been refusing medication...when asked why, he says because of my feet but cannot explain further. Centrifugal Casting Machine Tender asked if pt would allow to examine his feet, but pt refuses as he di the nurse earlier. later agreed to take Haldol which he did, but still not willing to let his feet be examined) 04/06 patient warming up some, less guarded and interacting more. Still will not let anyone examine his feet but says they are not hurting as much. Patient has hypertension but given his extreme reticent, chronically guarded nature and risk of overwhelming him,, will hold off discussing this as treatment is more medication about which patient already has much ambivalence. -discussed with adoption social worker who says patient has fairly extensive outpatient support however he is typically to disorganized to partake. 04/07 allowed feet to be examined by a specific nurse who reports unremarkable. Patient does complain of some tingling in hands and feet which he thinks was due to being out in the cold. Little less guarded, open to staying on the unit for help with housing. Still remains internally preoccupied though denies AH. Still hypertensive. Although a little bit improved, patient is still disorganized and if discharged at this time, would end up homeless and exposed to the elements, unable to get himself retirement or take care of himself in the community. 04/08 continues to gradually improve; agrees to Lisinopril 5mg for HTN; refuses LIRIANO; open to help w/ aftercare HBA1C WNL 04/09 same presentation; not sure what about patient's baseline and what is achievable; currently tolerating Haldol 10 mg b.i.d. and unlikely to accept long-acting injectable though web content writer will continue to ask. Wondering if higher dose of Haldol would confer increased benefit verses whether it is worth the increased risk of side effects. The fact that patient is open to housing is encouraging 04/10 same presentation. Although improved, patient still has very little insight and sometimes refuses medication initially only willing to take it later when it is re-presented. Centrifugal Casting Machine Tender remains concerned that if patient were to discharge soon, he would quickly elope from where ever he was and be vulnerable 04/11 although doing better than on admission, patient still remains with low insight and disorganized. Agrees to increasing Haldol dose to 10 mg t.i.d.. 04/12 Patient taking Haldol 3 times a day; little to no change in presentation thus far. Agrees to remain waiting for potential respite. Met with outpatient team today and says he felt fine about interactions. \Centrifugal Casting Machine Tender also met with various team members who are very concerned for patient's well being, worried that on p.o. medication he will quickly stop taking his medication, leave whatever place he is staying and wander in the community, exposed and vulnerable, to disorganized to accept help. Centrifugal Casting Machine Tender agrees that the patient has improved a little, he remains without any insight, unaware of having a psychiatric illness. Will continue with increased Haldol dose to see if that can improve symptoms, insight. 04/13 Patient expressed that he was excited to discharge. He had a lot of questions about the new facility [facility], where was located and would he be able to get 2 different places in [place]. Patient had some ambivalence about going there but said he would definitely go there for a few months. Patient agreed to long-acting injectable Haldol, as well as increased lisinopril for continued high blood pressure. manager fixed income Ronna has known patient for about a decade and says that in her experience, he appears to be at his highest functioning baseline -although patient agrees to long-acting Haldol Decanoate, typically this is overlapped with p.o. Haldol for quite a while. -He has also been on Invega Sustenna in the past. Have now received confirmation that he was on Invega Sustenna in the past and which is now understood to be about as effective as current Haldol dose 04/14 Refused LIRIANO; He would not give an explanation why. Will continue to discuss -EKG done and QT/QTC 358/435 04/15 Patient was open to long-acting injectable today. Upon inquiry, he could not explain why he had changed his mind yesterday but said that he would go ahead and receive it, which he did. Currently He remains open to staying on the unit hoping to get into respite; he also remains ambivalent about housing sometimes saying he would not mind going to a retirement -Reviewed history provided by outpatient team and it appears that patient has a long history of medication noncompliance; he has done relatively well when on both Invega Sustenna and Trilafon together. However his history demonstrates that he seems to prefer an itinerant lifestyle. Also reportedly there was some intellectual disability noted. 04/16/23 continue current treatment plan 04/17/23 continue treatment plan 04/18/23 continue tx plan Plan: CV q15 min Received Haldol Dec 100mg q28 days on 04/15/23; continue Lisinopril 20mg daily for htn Continue Haldol 15 mg B.i.d overlap recommended for weeks if not months as Haldol deck reached steady state added cogentin 0.5mg BID prn since records show hx of this med Patient educated on: diagnosis and therapeutic strategies Informed Consent: further education needed Reason for continued inpatient stay Substantial Risk for: rapid decompensation Time Spent With Patient Time: Total time managing care of this patient today ____ minutes.
[2023-04-19 08:00] VITALS: BP 114/71; PULSE 95; RESP 16; TEMP 36.4; O2SAT 98
[2023-04-19] MEDS: lisinopriL 20 MG TABLET PO (08:19)
[2023-04-19] MEDS: HaloperidoL 5 MG TABLET 15 MG PO ×2 (08:19→22:28)
[2023-04-19] MEDS: Acetaminophen 325 MG TABLET 650 MG PO (10:27)
[2023-04-19 18:00] VITALS: BP 120/79; PULSE 84; RESP 16; TEMP 36.3; O2SAT 97
[2023-04-20] MEDS: lisinopriL 20 MG TABLET PO (08:34)
[2023-04-20] MEDS: HaloperidoL 5 MG TABLET 15 MG PO ×2 (08:34→21:06)
[2023-04-20 08:57] VITALS: BP 118/80; PULSE 85; RESP 18; TEMP 36.6; O2SAT 98
--- NOTE | 2023-04-20 12:17 | HO.PSYCHPN ---
Subjective Subjective Date of Service: 04/20/23 Reason For Visit: Schizophrenia unspecified Interim History: Met with patient; discussed with team Patient little brighter; ask for pad and pen so he could take notes and write down questions he had for team. Although still mostly keeping to himself, more present in the milieu. Patient expressed significant ambivalence about going to [facility] and even perhaps [facility]. He says he thinks he will probably feel more comfortable in a [facility], surrounded by people he does not know than in a smaller facility around a few consistent people. Patient demonstrates improved insight/judgment saying he is concerned about being able to maintain his medications if in the [facility] but thinks that this is possible. He is willing to consider options a little longer at behest of internal communications writer/social work professor but is leaning towards [facility]. Mental Status Exam Mental Status Exam Narrative: Pt is alert and oriented; behavior is more calm, more social, not guarded; still reticent but less so; patient is not in distress; dressed in casual attire with unkempt hair, but adqeuate hygiene; mood is good and affect more calm, a little more expressive; eye contact mostly avoidant; Speech is on the quiet side, but overall normal rate, prosody; no psychomotor retardation present; thought process goal directed and with only a minimal amount of thought blocking; Thought content is discharge, respite verse [facility]; denies any SI/HI. Denies AVH; perhaps Internally pre-occupied but not overly so. Patients insight and judgment impaired but much improved, at baseline and adequate Diagnostics Vital Signs (24Hr): Vital Signs - 24 hr 04/19/23 18:00 04/20/23 08:57 Temperature 97.4 F 97.9 F Pulse Rate 84 85 Respiratory Rate 16 18 Blood Pressure 120/79 118/80 Pulse Oximetry 97 98 Oxygen Delivery Method Room Air Room Air BMI result Body Mass Index 26.6 Labs 04/08/23 14:22 Medications Medications Current Medications Acetaminophen (Acetaminophen 325 Mg Tablet) 650 mg PO Q6H PRN PRN Reason: Headache/Pain Mild Scale (1-3) Last Admin: 04/19/23 10:27 Dose: 650 mg Al Hydroxide/Mg Hydroxide (Magnesium Hydrox/Alum Hydrox 30 Ml Oral.Susp) 30 ml PO Q6H PRN PRN Reason: Heartburn/Nausea Benztropine Mesylate (Benztropine Mesylate 0.5 Mg Tablet) 0.5 mg PO BID PRN PRN Reason: EPS symptoms Last Admin: 04/17/23 19:55 Dose: 0.5 mg Diphenhydramine HCl (Diphenhydramine Hcl 25 Mg Capsule) 50 mg PO Q4H PRN PRN Reason: DYSTONIA Haloperidol (Haloperidol 5 Mg Tablet) 15 mg PO BID [facility] Last Admin: 04/20/23 08:34 Dose: 15 mg Haloperidol Decanoate (Haloperidol Decanoate 50 Mg/Ml Vial) 100 mg IM Q28D [facility] Last Admin: 04/15/23 14:05 Dose: 100 mg Hydroxyzine HCl (Hydroxyzine Hcl 25 Mg Tablet) 25 mg PO Q6H PRN PRN Reason: Anxiety Ibuprofen (Ibuprofen 600 Mg Tablet) 600 mg PO Q8H PRN PRN Reason: Pain, Mild (Pain Scale 1-3) Last Admin: 04/08/23 13:54 Dose: 600 mg Lisinopril (Lisinopril 20 Mg Tablet) 20 mg PO DAILY [facility]; Protocol Last Admin: 04/20/23 08:34 Dose: 20 mg Magnesium Hydroxide (Milk Of Magnesia 30 Ml Oral.Susp) 30 ml PO DAILY PRN PRN Reason: Constipation Nicotine (Nicotine 21 Mg Patch.Td24) 21 mg TRANSDERMA DAILY PRN PRN Reason: smoking cessation Nicotine Polacrilex (Nicotine Polacrilex 2 Mg Gum) 4 mg BUCCAL Q2H PRN PRN Reason: Nicotine Cravings Olanzapine (Olanzapine 5 Mg Tablet) 5 mg PO TID PRN PRN Reason: agitation Trazodone HCl (Trazodone Hcl 50 Mg Tablet) 50 mg PO BEDTIME MRX1 PRN PRN Reason: Insomnia Allergies Allergies Allergy/AdvReac Type Severity Reaction Status Date / Time No Known Allergies Allergy Verified 04/01/23 05:25 Assessment & Plan Assessment & Plan (1) Schizophrenia: Status: Acute Code(s): F20.9 - Schizophrenia, unspecified Plan Pt is a 42 yo male with hx of Schizophrenia, homelessness who presents for disorganized behavior in community, walking into street, in traffic, found in abandoned building... On admission he is internally preoccupied, guarded, reticent. He denies AH, though internally pre-occupied. Pt is soft spoken, as internal communications writer gets a little closer to hear, he puts hand in front of his face as a shield; denies internal communications writer causing him alarm, but keeps up hand. Agrees to take Haldol. Otherwise, not willing to engage further. 04/02 little better with haldo; willing to engage with female nursing staff, though still quite reticent, guarded with internal communications writer -again refused to have feet examined -SW getting in touch w/ outpt support team 04/04/2023: Continue current regimen and plans encouraged to take shower 04/05 little more talkative; pt showered over weekend, out of his room a little more pt has been refusing medication...when asked why, he says because of my feet but cannot explain further. Film Library Clerk asked if pt would allow to examine his feet, but pt refuses as he di the nurse earlier. later agreed to take Haldol which he did, but still not willing to let his feet be examined) 04/06 patient warming up some, less guarded and interacting more. Still will not let anyone examine his feet but says they are not hurting as much. Patient has hypertension but given his extreme reticent, chronically guarded nature and risk of overwhelming him,, will hold off discussing this as treatment is more medication about which patient already has much ambivalence. -discussed with social work professor who says patient has fairly extensive outpatient support however he is typically to disorganized to partake. 04/07 allowed feet to be examined by a specific nurse who reports unremarkable. Patient does complain of some tingling in hands and feet which he thinks was due to being out in the cold. Little less guarded, open to staying on the unit for help with housing. Still remains internally preoccupied though denies AH. Still hypertensive. Although a little bit improved, patient is still disorganized and if discharged at this time, would end up homeless and exposed to the elements, unable to get himself [facility] or take care of himself in the community. 04/08 continues to gradually improve; agrees to Lisinopril 5mg for HTN; refuses LIRIANO; open to help w/ aftercare HBA1C WNL 04/09 same presentation; not sure what about patient's baseline and what is achievable; currently tolerating Haldol 10 mg b.i.d. and unlikely to accept long-acting injectable though internal communications writer will continue to ask. Wondering if higher dose of Haldol would confer increased benefit verses whether it is worth the increased risk of side effects. The fact that patient is open to housing is encouraging 04/10 same presentation. Although improved, patient still has very little insight and sometimes refuses medication initially only willing to take it later when it is re-presented. Film Library Clerk remains concerned that if patient were to discharge soon, he would quickly elope from where ever he was and be vulnerable 04/11 although doing better than on admission, patient still remains with low insight and disorganized. Agrees to increasing Haldol dose to 10 mg t.i.d.. 04/12 Patient taking Haldol 3 times a day; little to no change in presentation thus far. Agrees to remain waiting for potential respite. Met with outpatient team today and says he felt fine about interactions. \Film Library Clerk also met with various team members who are very concerned for patient's well being, worried that on p.o. medication he will quickly stop taking his medication, leave whatever place he is staying and wander in the community, exposed and vulnerable, to disorganized to accept help. Film Library Clerk agrees that the patient has improved a little, he remains without any insight, unaware of having a psychiatric illness. Will continue with increased Haldol dose to see if that can improve symptoms, insight. 04/13 Patient expressed that he was excited to discharge. He had a lot of questions about the new facility [facility], where was located and would he be able to get 2 different places in [place]. Patient had some ambivalence about going there but said he would definitely go there for a few months. Patient agreed to long-acting injectable Haldol, as well as increased lisinopril for continued high blood pressure. transitions manager Ronna has known patient for about a decade and says that in her experience, he appears to be at his highest functioning baseline -although patient agrees to long-acting Haldol Decanoate, typically this is overlapped with p.o. Haldol for quite a while. -He has also been on Invega Sustenna in the past. Have now received confirmation that he was on Invega Sustenna in the past and which is now understood to be about as effective as current Haldol dose 04/14 Refused LIRIANO; He would not give an explanation why. Will continue to discuss -EKG done and QT/QTC [id number] 04/15 Patient was open to long-acting injectable today. Upon inquiry, he could not explain why he had changed his mind yesterday but said that he would go ahead and receive it, which he did. Currently He remains open to staying on the unit hoping to get into respite; he also remains ambivalent about housing sometimes saying he would not mind going to a [facility] -Reviewed history provided by outpatient team and it appears that patient has a long history of medication noncompliance; he has done relatively well when on both Invega Sustenna and Trilafon together. However his history demonstrates that he seems to prefer an itinerant lifestyle. Also reportedly there was some intellectual disability noted. 04/20 Patient little brighter; ask for pad and pen so he could take notes and write down questions he had for team. Although still mostly keeping to himself, more present in the milieu. Patient expressed significant ambivalence about going to resp[facility] and even perhaps [facility]. He says he thinks he will probably feel more comfortable in a [facility], surrounded by people he does not know than in a smaller facility around a few consistent people. Patient demonstrates improved insight/judgment saying he is concerned about being able to maintain his medications if in the [facility] but thinks that this is possible. He is willing to consider options a little longer at behest of internal communications writer/social work professor but is leaning towards [facility]. -patient has some chronic anxiety, fearfulness about being around people and is indicating he overall feels safer situations with which he is more familiar, i.e. [facility] living verses an unknown resp[facility] house. Social work has discussed this with outpatient team who understands this to be so. Hoping that patient will choose to go to resp[facility] and then [facility] but understand that he may not. Patient is approaching this decision reasonably enough, and while internal communications writer very much prefers him to go to the safer and more stable environment of respite and then [facility], internal communications writer agrees that patient is insight/judgment has significantly improved to the point where he is able to make his own decision in this matter. Patient has remained on medication, including long-acting and says he will continue to do so. Says he will continue to take antihypertensive Plan: CV q15 min Received Haldol Dec 100mg q28 days on 04/15/23; continue Lisinopril 20mg daily for htn Continue Haldol 15 mg B.i.d overlap recommended for weeks if not months as Haldol deck reached steady state added cogentin 0.5mg BID prn since records show hx of this med Patient educated on: diagnosis, medication risk/benefits, therapeutic strategies and medical condition Informed Consent: understands, does not understand and further education needed Reason for continued inpatient stay Substantial Risk for: stable for discharge Time Spent With Patient Time: Total time managing care of this patient today ____ minutes.
[2023-04-20] MEDS: Acetaminophen 325 MG TABLET 650 MG PO (14:44)
[2023-04-20 18:45] VITALS: BP 132/85; PULSE 87; RESP 16; TEMP 36.1; O2SAT 99
[2023-04-21 08:00] VITALS: BP 121/86; PULSE 90; RESP 18; TEMP 36.7; O2SAT 98
[2023-04-21] MEDS: HaloperidoL 5 MG TABLET 15 MG PO ×2 (09:29→19:34)
[2023-04-21] MEDS: lisinopriL 20 MG TABLET PO (09:29)
--- NOTE | 2023-04-21 16:27 | HO.PSYCHPN ---
Subjective Subjective Date of Service: 04/21/23 Reason For Visit: Schizophrenia unspecified Interim History: Met with patient; discussed with team Patient remains at baseline, and though reticent, increasingly social and interactive in the milieu. Remains in good behavioral and impulse control, tolerating medication. Patient again asked about discharge and decided that he does not want to wait any longer for a respite bed but actually prefers to go to a senior care. He is still open to [facility] but does not want to wait for it any longer. Manufacturing Intern and social secretary agree that patient is not in imminent risk of harm to self or others and is able to make his own decisions, logically thinking through the practicals of discharging to a senior care. Mental Status Exam Mental Status Exam Narrative: Pt is alert and oriented; behavior is more calm, more social, not guarded; still reticent but less so; patient is not in distress; dressed in casual attire with unkempt hair, but adqeuate hygiene; mood is good and affect more calm, a little more expressive; eye contact mostly avoidant; Speech is on the quiet side, but overall normal rate, prosody; no psychomotor retardation present; thought process goal directed and with only a minimal amount of thought blocking; Thought content is discharge, respite verse senior care; denies any SI/HI. Denies AVH; perhaps Internally pre-occupied but not overly so. Patients insight and judgment impaired but much improved, at baseline and adequate Diagnostics Vital Signs (24Hr): Vital Signs - 24 hr 04/20/23 18:45 04/21/23 08:00 Temperature 97 F 98.1 F Pulse Rate 87 90 Respiratory Rate 16 18 Blood Pressure 132/85 121/86 Pulse Oximetry 99 98 Oxygen Delivery Method Room Air Room Air BMI result Body Mass Index 26.6 Labs 04/08/23 14:22 Medications Medications Current Medications Acetaminophen (Acetaminophen 325 Mg Tablet) 650 mg PO Q6H PRN PRN Reason: Headache/Pain Mild Scale (1-3) Last Admin: 04/20/23 14:44 Dose: 650 mg Al Hydroxide/Mg Hydroxide (Magnesium Hydrox/Alum Hydrox 30 Ml Oral.Susp) 30 ml PO Q6H PRN PRN Reason: Heartburn/Nausea Benztropine Mesylate (Benztropine Mesylate 0.5 Mg Tablet) 0.5 mg PO BID PRN PRN Reason: EPS symptoms Last Admin: 04/17/23 19:55 Dose: 0.5 mg Diphenhydramine HCl (Diphenhydramine Hcl 25 Mg Capsule) 50 mg PO Q4H PRN PRN Reason: DYSTONIA Haloperidol (Haloperidol 5 Mg Tablet) 15 mg PO BID [facility] Last Admin: 04/21/23 09:29 Dose: 15 mg Haloperidol Decanoate (Haloperidol Decanoate 50 Mg/Ml Vial) 100 mg IM Q28D [facility] Last Admin: 04/15/23 14:05 Dose: 100 mg Hydroxyzine HCl (Hydroxyzine Hcl 25 Mg Tablet) 25 mg PO Q6H PRN PRN Reason: Anxiety Ibuprofen (Ibuprofen 600 Mg Tablet) 600 mg PO Q8H PRN PRN Reason: Pain, Mild (Pain Scale 1-3) Last Admin: 04/08/23 13:54 Dose: 600 mg Lisinopril (Lisinopril 20 Mg Tablet) 20 mg PO DAILY [facility]; Protocol Last Admin: 04/21/23 09:29 Dose: 20 mg Magnesium Hydroxide (Milk Of Magnesia 30 Ml Oral.Susp) 30 ml PO DAILY PRN PRN Reason: Constipation Nicotine (Nicotine 21 Mg Patch.Td24) 21 mg TRANSDERMA DAILY PRN PRN Reason: smoking cessation Nicotine Polacrilex (Nicotine Polacrilex 2 Mg Gum) 4 mg BUCCAL Q2H PRN PRN Reason: Nicotine Cravings Olanzapine (Olanzapine 5 Mg Tablet) 5 mg PO TID PRN PRN Reason: agitation Trazodone HCl (Trazodone Hcl 50 Mg Tablet) 50 mg PO BEDTIME MRX1 PRN PRN Reason: Insomnia Allergies Allergies Allergy/AdvReac Type Severity Reaction Status Date / Time No Known Allergies Allergy Verified 04/01/23 05:25 Assessment & Plan Assessment & Plan (1) Schizophrenia: Status: Acute Code(s): F20.9 - Schizophrenia, unspecified Plan Pt is a 42 yo male with hx of Schizophrenia, homelessness who presents for disorganized behavior in community, walking into street, in traffic, found in abandoned building... On admission he is internally preoccupied, guarded, reticent. He denies AH, though internally pre-occupied. Pt is soft spoken, as writer technical publications gets a little closer to hear, he puts hand in front of his face as a shield; denies writer technical publications causing him alarm, but keeps up hand. Agrees to take Haldol. Otherwise, not willing to engage further. 04/02 little better with haldo; willing to engage with female nursing staff, though still quite reticent, guarded with writer technical publications -again refused to have feet examined -SW getting in touch w/ outpt support team 04/04/2023: Continue current regimen and plans encouraged to take shower 04/05 little more talkative; pt showered over weekend, out of his room a little more pt has been refusing medication...when asked why, he says because of my feet but cannot explain further. Manufacturing Intern asked if pt would allow to examine his feet, but pt refuses as he di the nurse earlier. later agreed to take Haldol which he did, but still not willing to let his feet be examined) 04/06 patient warming up some, less guarded and interacting more. Still will not let anyone examine his feet but says they are not hurting as much. Patient has hypertension but given his extreme reticent, chronically guarded nature and risk of overwhelming him,, will hold off discussing this as treatment is more medication about which patient already has much ambivalence. -discussed with social secretary who says patient has fairly extensive outpatient support however he is typically to disorganized to partake. 04/07 allowed feet to be examined by a specific nurse who reports unremarkable. Patient does complain of some tingling in hands and feet which he thinks was due to being out in the cold. Little less guarded, open to staying on the unit for help with housing. Still remains internally preoccupied though denies AH. Still hypertensive. Although a little bit improved, patient is still disorganized and if discharged at this time, would end up homeless and exposed to the elements, unable to get himself senior care or take care of himself in the community. 04/08 continues to gradually improve; agrees to Lisinopril 5mg for HTN; refuses LIRIANO; open to help w/ aftercare HBA1C WNL 04/09 same presentation; not sure what about patient's baseline and what is achievable; currently tolerating Haldol 10 mg b.i.d. and unlikely to accept long-acting injectable though writer technical publications will continue to ask. Wondering if higher dose of Haldol would confer increased benefit verses whether it is worth the increased risk of side effects. The fact that patient is open to housing is encouraging 04/10 same presentation. Although improved, patient still has very little insight and sometimes refuses medication initially only willing to take it later when it is re-presented. Manufacturing Intern remains concerned that if patient were to discharge soon, he would quickly elope from where ever he was and be vulnerable 04/11 although doing better than on admission, patient still remains with low insight and disorganized. Agrees to increasing Haldol dose to 10 mg t.i.d.. 04/12 Patient taking Haldol 3 times a day; little to no change in presentation thus far. Agrees to remain waiting for potential respite. Met with outpatient team today and says he felt fine about interactions. \Manufacturing Intern also met with various team members who are very concerned for patient's well being, worried that on p.o. medication he will quickly stop taking his medication, leave whatever place he is staying and wander in the community, exposed and vulnerable, to disorganized to accept help. Manufacturing Intern agrees that the patient has improved a little, he remains without any insight, unaware of having a psychiatric illness. Will continue with increased Haldol dose to see if that can improve symptoms, insight. 04/13 Patient expressed that he was excited to discharge. He had a lot of questions about the new facility [facility], where was located and would he be able to get 2 different places in [place]. Patient had some ambivalence about going there but said he would definitely go there for a few months. Patient agreed to long-acting injectable Haldol, as well as increased lisinopril for continued high blood pressure. account manager Ronna has known patient for about a decade and says that in her experience, he appears to be at his highest functioning baseline -although patient agrees to long-acting Haldol Decanoate, typically this is overlapped with p.o. Haldol for quite a while. -He has also been on Invega Sustenna in the past. Have now received confirmation that he was on Invega Sustenna in the past and which is now understood to be about as effective as current Haldol dose 04/14 Refused LIRIANO; He would not give an explanation why. Will continue to discuss -EKG done and QT/QTC 358/435 04/15 Patient was open to long-acting injectable today. Upon inquiry, he could not explain why he had changed his mind yesterday but said that he would go ahead and receive it, which he did. Currently He remains open to staying on the unit hoping to get into respite; he also remains ambivalent about housing sometimes saying he would not mind going to a senior care -Reviewed history provided by outpatient team and it appears that patient has a long history of medication noncompliance; he has done relatively well when on both Invega Sustenna and Trilafon together. However his history demonstrates that he seems to prefer an itinerant lifestyle. Also reportedly there was some intellectual disability noted. 04/20 Patient little brighter; ask for pad and pen so he could take notes and write down questions he had for team. Although still mostly keeping to himself, more present in the milieu. Patient expressed significant ambivalence about going to respite and even perhaps [facility]. He says he thinks he will probably feel more comfortable in a senior care, surrounded by people he does not know than in a smaller facility around a few consistent people. Patient demonstrates improved insight/judgment saying he is concerned about being able to maintain his medications if in the senior care but thinks that this is possible. He is willing to consider options a little longer at behest of writer technical publications/social secretary but is leaning towards senior care. -patient has some chronic anxiety, fearfulness about being around people and is indicating he overall feels safer situations with which he is more familiar, i.e. senior care living verses an unknown respite/[facility] house. Social work has discussed this with outpatient team who understands this to be so. Hoping that patient will choose to go to respite and then [facility] but understand that he may not. Patient is approaching this decision reasonably enough, and while writer technical publications very much prefers him to go to the safer and more stable environment of respite and then [facility], writer technical publications agrees that patient is insight/judgment has significantly improved to the point whe04/21 04/21 continue with discharge planning. Patient remains at baseline, and though reticent, increasingly social and interactive in the milieu. Remains in good behavioral and impulse control, tolerating medication. Patient again asked about discharge and decided that he does not want to wait any longer for a respite bed but actually prefers to go to a senior care. He is still open to [facility] but does not want to wait for it any longer. While patient does not fully understand his psychotic illness, he understands enough and agrees to continue taking medications. Given patient's history and somewhat itinerant lifestyle, it is likely he will again stop taking medications and wander into unsafe situations; however this is a chronic issue for him which has been going on for over a decade. Manufacturing Intern and social secretary agree that patient is not in imminent risk of harm to self or others and is able to make his own decisions, logically thinking through the practicals of discharging to a senior care. Plan: CV q15 min Received Haldol Dec 100mg q28 days on 04/15/23; continue Lisinopril 20mg daily for htn Continue Haldol 15 mg B.i.d overlap recommended for weeks if not months as Haldol deck reached steady state added cogentin 0.5mg BID prn since records show hx of this med Patient educated on: diagnosis, medication risk/benefits and therapeutic strategies Informed Consent: understands, does not understand and further education needed Reason for continued inpatient stay Substantial Risk for: stable for discharge Time Spent With Patient Time: Total time managing care of this patient today ____ minutes.
[2023-04-21 18:00] VITALS: BP 116/80; PULSE 92; RESP 18; TEMP 36.3; O2SAT 99
[2023-04-22 08:00] VITALS: BP 139/76; PULSE 90; RESP 16; TEMP 36.3; O2SAT 100
[2023-04-22] MEDS: lisinopriL 20 MG TABLET PO (08:36)
[2023-04-22] MEDS: HaloperidoL 5 MG TABLET 15 MG PO ×2 (08:36→19:50)
[2023-04-22 12:40] VITALS: BMI 27.1
--- NOTE | 2023-04-22 14:45 | HO.PSYCHPN ---
Subjective Subjective Date of Service: 04/22/23 Reason For Visit: Schizophrenia unspecified Interim History: met with patient; discussed with team pt remains stable and with increased social interaction, even eating w/ peers. Pt wants to dc tomorrow to detention, adamant that he prefers this to waiting for respite. He feels better overall and ready to go Mental Status Exam Mental Status Exam Narrative: Pt is alert and oriented; behavior is more calm, more social, not guarded; still reticent but less so; patient is not in distress; dressed in casual attire with unkempt hair, but adqeuate hygiene; mood is good and affect more calm, a little more expressive; eye contact mostly avoidant; Speech is on the quiet side, but overall normal rate, prosody; no psychomotor retardation present; thought process goal directed and with only a minimal amount of thought blocking; Thought content is discharge, respite verse detention; denies any SI/HI. Denies AVH; perhaps Internally pre-occupied but not overly so. Patients insight and judgment impaired but much improved, at baseline and adequate Diagnostics Vital Signs (24Hr): Vital Signs - 24 hr 04/21/23 18:00 04/22/23 08:00 Temperature 97.3 F 97.4 F Pulse Rate 92 90 Respiratory Rate 18 16 Blood Pressure 116/80 139/76 Pulse Oximetry 99 100 Oxygen Delivery Method Room Air Room Air BMI result Body Mass Index 27.1 Labs 04/08/23 14:22 Medications Medications Current Medications Acetaminophen (Acetaminophen 325 Mg Tablet) 650 mg PO Q6H PRN PRN Reason: Headache/Pain Mild Scale (1-3) Last Admin: 04/20/23 14:44 Dose: 650 mg Al Hydroxide/Mg Hydroxide (Magnesium Hydrox/Alum Hydrox 30 Ml Oral.Susp) 30 ml PO Q6H PRN PRN Reason: Heartburn/Nausea Benztropine Mesylate (Benztropine Mesylate 0.5 Mg Tablet) 0.5 mg PO BID PRN PRN Reason: EPS symptoms Last Admin: 04/17/23 19:55 Dose: 0.5 mg Diphenhydramine HCl (Diphenhydramine Hcl 25 Mg Capsule) 50 mg PO Q4H PRN PRN Reason: DYSTONIA Haloperidol (Haloperidol 5 Mg Tablet) 15 mg PO BID [facility] Last Admin: 04/22/23 08:36 Dose: 15 mg Haloperidol Decanoate (Haloperidol Decanoate 50 Mg/Ml Vial) 100 mg IM Q28D [facility] Last Admin: 04/15/23 14:05 Dose: 100 mg Hydroxyzine HCl (Hydroxyzine Hcl 25 Mg Tablet) 25 mg PO Q6H PRN PRN Reason: Anxiety Ibuprofen (Ibuprofen 600 Mg Tablet) 600 mg PO Q8H PRN PRN Reason: Pain, Mild (Pain Scale 1-3) Last Admin: 04/08/23 13:54 Dose: 600 mg Lisinopril (Lisinopril 20 Mg Tablet) 20 mg PO DAILY [facility]; Protocol Last Admin: 04/22/23 08:36 Dose: 20 mg Magnesium Hydroxide (Milk Of Magnesia 30 Ml Oral.Susp) 30 ml PO DAILY PRN PRN Reason: Constipation Nicotine (Nicotine 21 Mg Patch.Td24) 21 mg TRANSDERMA DAILY PRN PRN Reason: smoking cessation Nicotine Polacrilex (Nicotine Polacrilex 2 Mg Gum) 4 mg BUCCAL Q2H PRN PRN Reason: Nicotine Cravings Olanzapine (Olanzapine 5 Mg Tablet) 5 mg PO TID PRN PRN Reason: agitation Trazodone HCl (Trazodone Hcl 50 Mg Tablet) 50 mg PO BEDTIME MRX1 PRN PRN Reason: Insomnia Allergies Allergies Allergy/AdvReac Type Severity Reaction Status Date / Time No Known Allergies Allergy Verified 04/01/23 05:25 Assessment & Plan Assessment & Plan (1) Schizophrenia: Status: Acute Code(s): F20.9 - Schizophrenia, unspecified Plan Pt is a 42 yo male with hx of Schizophrenia, homelessness who presents for disorganized behavior in community, walking into street, in traffic, found in abandoned building... On admission he is internally preoccupied, guarded, reticent. He denies AH, though internally pre-occupied. Pt is soft spoken, as proposal lead writer gets a little closer to hear, he puts hand in front of his face as a shield; denies proposal lead writer causing him alarm, but keeps up hand. Agrees to take Haldol. Otherwise, not willing to engage further. 04/02 little better with haldo; willing to engage with female nursing staff, though still quite reticent, guarded with proposal lead writer -again refused to have feet examined -SW getting in touch w/ outpt support team 04/04/2023: Continue current regimen and plans encouraged to take shower 04/05 little more talkative; pt showered over weekend, out of his room a little more pt has been refusing medication...when asked why, he says because of my feet but cannot explain further. Software Reliability Engineer asked if pt would allow to examine his feet, but pt refuses as he di the nurse earlier. later agreed to take Haldol which he did, but still not willing to let his feet be examined) 04/06 patient warming up some, less guarded and interacting more. Still will not let anyone examine his feet but says they are not hurting as much. Patient has hypertension but given his extreme reticent, chronically guarded nature and risk of overwhelming him,, will hold off discussing this as treatment is more medication about which patient already has much ambivalence. -discussed with health and social care teacher who says patient has fairly extensive outpatient support however he is typically to disorganized to partake. 04/07 allowed feet to be examined by a specific nurse who reports unremarkable. Patient does complain of some tingling in hands and feet which he thinks was due to being out in the cold. Little less guarded, open to staying on the unit for help with housing. Still remains internally preoccupied though denies AH. Still hypertensive. Although a little bit improved, patient is still disorganized and if discharged at this time, would end up homeless and exposed to the elements, unable to get himself detention or take care of himself in the community. 04/08 continues to gradually improve; agrees to Lisinopril 5mg for HTN; refuses LIRIANO; open to help w/ aftercare HBA1C WNL 04/09 same presentation; not sure what about patient's baseline and what is achievable; currently tolerating Haldol 10 mg b.i.d. and unlikely to accept long-acting injectable though proposal lead writer will continue to ask. Wondering if higher dose of Haldol would confer increased benefit verses whether it is worth the increased risk of side effects. The fact that patient is open to housing is encouraging 04/10 same presentation. Although improved, patient still has very little insight and sometimes refuses medication initially only willing to take it later when it is re-presented. Software Reliability Engineer remains concerned that if patient were to discharge soon, he would quickly elope from where ever he was and be vulnerable 04/11 although doing better than on admission, patient still remains with low insight and disorganized. Agrees to increasing Haldol dose to 10 mg t.i.d.. 04/12 Patient taking Haldol 3 times a day; little to no change in presentation thus far. Agrees to remain waiting for potential respite. Met with outpatient team today and says he felt fine about interactions. \Software Reliability Engineer also met with various team members who are very concerned for patient's well being, worried that on p.o. medication he will quickly stop taking his medication, leave whatever place he is staying and wander in the community, exposed and vulnerable, to disorganized to accept help. Software Reliability Engineer agrees that the patient has improved a little, he remains without any insight, unaware of having a psychiatric illness. Will continue with increased Haldol dose to see if that can improve symptoms, insight. 04/13 Patient expressed that he was excited to discharge. He had a lot of questions about the new facility [facility], where was located and would he be able to get 2 different places in [place]. Patient had some ambivalence about going there but said he would definitely go there for a few months. Patient agreed to long-acting injectable Haldol, as well as increased lisinopril for continued high blood pressure. ict business development manager Ronna has known patient for about a decade and says that in her experience, he appears to be at his highest functioning baseline -although patient agrees to long-acting Haldol Decanoate, typically this is overlapped with p.o. Haldol for quite a while. -He has also been on Invega Sustenna in the past. Have now received confirmation that he was on Invega Sustenna in the past and which is now understood to be about as effective as current Haldol dose 04/14 Refused LIRIANO; He would not give an explanation why. Will continue to discuss -EKG done and QT/QTC 358/435 04/15 Patient was open to long-acting injectable today. Upon inquiry, he could not explain why he had changed his mind yesterday but said that he would go ahead and receive it, which he did. Currently He remains open to staying on the unit hoping to get into respite; he also remains ambivalent about housing sometimes saying he would not mind going to a detention -Reviewed history provided by outpatient team and it appears that patient has a long history of medication noncompliance; he has done relatively well when on both Invega Sustenna and Trilafon together. However his history demonstrates that he seems to prefer an itinerant lifestyle. Also reportedly there was some intellectual disability noted. 04/20 Patient little brighter; ask for pad and pen so he could take notes and write down questions he had for team. Although still mostly keeping to himself, more present in the milieu. Patient expressed significant ambivalence about going to respite and even perhaps safe Haven. He says he thinks he will probably feel more comfortable in a detention, surrounded by people he does not know than in a smaller facility around a few consistent people. Patient demonstrates improved insight/judgment saying he is concerned about being able to maintain his medications if in the detention but thinks that this is possible. He is willing to consider options a little longer at behest of proposal lead writer/health and social care teacher but is leaning towards detention. -patient has some chronic anxiety, fearfulness about being around people and is indicating he overall feels safer situations with which he is more familiar, i.e. detention living verses an unknown respite/safe Haven house. Social work has discussed this with outpatient team who understands this to be so. Hoping that patient will choose to go to respite and then safe Haven but understand that he may not. Patient is approaching this decision reasonably enough, and while proposal lead writer very much prefers him to go to the safer and more stable environment of respite and then safe Haven, proposal lead writer agrees that patient is insight/judgment has significantly improved to the point whe04/21 04/21 continue with discharge planning. Patient remains at baseline, and though reticent, increasingly social and interactive in the milieu. Remains in good behavioral and impulse control, tolerating medication. Patient again asked about discharge and decided that he does not want to wait any longer for a respite bed but actually prefers to go to a detention. He is still open to safe Haven but does not want to wait for it any longer. While patient does not fully understand his psychotic illness, he understands enough and agrees to continue taking medications. Given patient's history and somewhat itinerant lifestyle, it is likely he will again stop taking medications and wander into unsafe situations; however this is a chronic issue for him which has been going on for over a decade. Software Reliability Engineer and health and social care teacher agree that patient is not in imminent risk of harm to self or others and is able to make his own decisions, logically thinking through the practicals of discharging to a detention. 04/22 remains stable and appropriate for discharge Plan: CV q15 min Received Haldol Dec 100mg q28 days on 04/15/23; continue Lisinopril 20mg daily for htn Continue Haldol 15 mg B.i.d overlap recommended for weeks if not months as Haldol deck reached steady state added cogentin 0.5mg BID prn since records show hx of this med Patient educated on: therapeutic strategies Informed Consent: understands Reason for continued inpatient stay Substantial Risk for: stable for discharge Time Spent With Patient Time: Total time managing care of this patient today ____ minutes.
[2023-04-22 18:00] VITALS: BP 139/94; PULSE 75; RESP 18; TEMP 36.6; O2SAT 99
--- NOTE | 2023-04-22 22:33 | P.DS_ITS ---
DS: Providers Provider Date of Service: 04/23/23 Date of admission: 04/01/23 04:24 Date of discharge: 04/23/23 Primary care physician: Unknown Physician Attending physician on admission: Corwin Ballard Consults: 04/01/23 05:28 Consult to Hospitalist Routine Comment: Consulting Provider: Hospitalist Reason For Exam: frostbite/admission physical DS: Diagnosis Discharge Diagnosis (1) Schizophrenia: Status: Acute DS: Medications Discharge Medications Home Medications: Previous Rx's Medication Instructions Recorded haloperidol 20 mg tablet 20 mg PO DAILY 30 days #30 tabs 04/22/23 haloperidol decanoate 50 mg/mL 100 mg (2 mL) IM Q28D 30 days #4 mL 04/22/23 intramuscular solution lisinopril 20 mg tablet 20 mg PO DAILY 30 days #30 tabs 04/22/23 Mental Status Exam Mental Status Exam Narrative: Pt is alert and oriented; behavior is more calm, more social, not guarded; still reticent but less so; patient is not in distress; dressed in casual attire with unkempt hair, but adqeuate hygiene; mood is good and affect more calm, a little more expressive; eye contact mostly avoidant; Speech is on the quiet side, but overall normal rate, prosody; no psychomotor retardation present; thought process goal directed and with only a minimal amount of thought blocking; Thought content is discharge, respite verse halfway; denies any SI/HI. Denies AVH; perhaps Internally pre-occupied but not overly so. Patients insight and judgment impaired but much improved, at baseline and adequate DS: Summary Hospital Course Hospital Course: Pt is a 42 yo male with hx of Schizophrenia, chronic homelessness and medication non adherence; some history possible intellectual disability, who presents for disorganized behavior in community, walking into street, in traffic, found in abandoned building... On admission he is internally preoccupied, guarded, reticent. He denies AH, though internally pre-occupied. Pt is soft spoken, as internal communications writer gets a little closer to hear, he puts hand in front of his face as a shield; denies internal communications writer causing him alarm, but keeps up hand. Agrees to take Haldol. Otherwise, not willing to engage further. -in the past patient has been on past medication combinations: Sometimes Risperdal Consta 50 mg q.2 weeks + Trilafon (history indicates Cogentin only prophylactic) Sometimes Haldol dec (+ risperdal but unlikely that he took it) Hospital course: On admission, patient was guarded, suspicious, fearful, reticent; internally preoccupied with thought blocking. Refusing to let anyone examine his feet with concern for frostbite. He did however agree to take Haldol and start to show some mild improvement. -showered; eating meals; little by little talking more -eventually patient willing to start antihypertensive, lisinopril which was titrated to good effect -Patient complain of some tingling in hands and feet which he thinks was due to being out in the cold. Little less guarded, open to staying on the unit for help with housing. Still remains internally preoccupied though denies AH. -eventually allowed his feet to be examined which did not require medical tr eatment -Although a little bit improved, patient is still disorganized and if discharged at this time, would end up homeless and exposed to the elements, unable to get himself halfway or take care of himself in the community. Patient remained on Haldol and eventually agreed to getting on long-acting Haldol Decanoate. He continued to improve little by little and eventually returned to baseline. Patient had extensive outpatient team and place however typically what eloped from housing situations provided to and was frequently difficult for team to locate Patient is out patient supportive employment case manager Ronna came to the unit and stable discharge plan was established, with patient 1st going to respite and then going to fdc [facility] Patient however remained ambivalent about both. Patient remained on the unit for continued stabilization and eventually got on Haldol Decanoate, which improved patient's chances for continued stability Patient continued to improve, more present in the milieu and although still overall reticent, able to talk, have a conversation, asked appropriate questions. His ambivalence about going to either respite or eventually a fdc remained and patient expressed that he overall feels safer in a halfway (internal communications writer thought this was due to patient being more afraid of things unfamiliar). He was able to discuss medication management appropriately and although internal communications writer and social worker masters continue to strongly encourage patient to try respite and then fdc, patient eventually wanted to discharge to the halfway. Team agreed that patient was had a place where he was able to make his own decisions. And Keeping him longer just to get him into a respite would be unproductive as he would very likely leave it anyway. Regarding discharge, Patient remains at baseline, and though reticent, increasingly social and interactive in the milieu. Remains in good behavioral and impulse control, tolerating medication. Patient again asked about discharge and decided that he does not want to wait any longer for a respite bed but actually prefers to go to a halfway. He is still open to safe Haven but does not want to wait for it any longer. While patient does not fully understand his psychotic illness, he understands enough and agrees to continue taking medications, including medications for hypertension; discussing medications and treatment patient was able to logically inappropriately discuss his plan for remaining on meds. Given patient's history and somewhat itinerant lifestyle, it is likely he will again stop taking medications and wander into unsafe situations; however this is a chronic issue for him which has been going on for over a decade. Industrial Cleaning Technician and social worker masters agree that patient is not in imminent risk of harm to self or others and is able to make his own decisions, logically thinking through the practicals of discharging to a halfway. Medications: Haldol Dec 100mg q28 days on 04/15/23; Lisinopril 20mg daily for htn Haldol 15 mg B.i.d for weeks to months (for Haldol Dec to reach steady state Time spent discussing smoking cessation with patient: 3 to 10 minutes Status at Discharge Functional status at discharge: independent ambulation Overall status at discharge: patient is back to baseline Time Spent with Patient Time attestation: Total time managing care of this patient today ____ minutes. Time spent: Less than 30 minutes Discharge Plan Discharge Anticipated Discharge Date/Time: 04/23/23 11:00 Patient Disposition: Senior Care Discharge Diagnosis: schizophrenia Referrals: [facility] Psychiatry with Fabiana Jha [Other] - 05/04/23 9:20 am [facility] Television Script Writer Ronna Covington [Other] - 1 Week [facility] [Other] - 1 Week Jose De León MD [Physician] - 05/07/23 2:00 pm (in office appointment at: [address] [place] [address] ) Discharge Medications: New lisinopril 20 mg Tablet 20 mg PO DAILY 30 Days Qty: 30 1RF Protocol: Hold for SBP< HOLD for SBP < : 90 haloperidol 20 mg tablet 20 mg PO DAILY 30 Days Qty: 30 1RF haloperidol decanoate 50 mg/mL Solution 100 mg IM Q28D 30 Days Qty: 4 1RF Rx Instructions: due on 05/11/23 Discharge Orders: Discharge Order (Routine); Ordered 04/23/23 Ordered By: Corwin Ballard Diet: Regular diet Activity on Discharge: As tolerated Stand Alone Forms: Patient Portal Discharge page, Community Support Care Plan Goals: Maintain mood and safe behaviors Take medications as prescribed Practice coping skills Continue with outpatient providers and reach out to them as needed Health Concerns: Mood stability and behaviors Hypertension Plan of Treatment: Follow up with your PCP, psychiatric provider and other outpatient providers regarding above concerns Take medications as prescribed Assessment: Risk assessment at time of discharge:? Patient was interviewed prior to discharge and found to be fully oriented and without any SI or HI. Patient has improved insight and judgment and wants to continue treatment. Patient is not in imminent risk of harm to self or others and has a safety plan that includes presenting to the closest ER or calling 911 if feeling unsafe.? Patient has been observed closely by nursing and unit staff throughout admission; patient has not engaged in any behaviors that suggest dangerousness to self or others and has demonstrated appropriate behaviors and impulse control Discharge Date/Time: 04/23/23 11:53
[2023-04-23 08:00] VITALS: BP 114/88; PULSE 110; RESP 16; TEMP 36.4; O2SAT 98
[2023-04-23] MEDS: lisinopriL 20 MG TABLET PO (08:50)
[2023-04-23] MEDS: HaloperidoL 5 MG TABLET 15 MG PO (08:50)
== END 2023-04-23 11:53 | disposition home or self-care (01) | DRG 885 ==
PROVIDERS: Admitting Provider Psychiatry & Neurology Psychiatry; Visit Provider Psychiatry & Neurology Psychiatry
DX: F20.9 Schizophrenia, unspecified (principal); Z59.02 Unsheltered homelessness; F17.210 Nicotine dependence, cigarettes, uncomplicated; Z71.6 Tobacco abuse counseling; Z79.899 Other long term (current) drug therapy
CPT/HCPCS: 36415; 80053; 83036; 93005; J1631

== ENCOUNTER → 2023-04-01 04:24 | Outpatient (BNV) | payer OTHER, SELFPAY | PROVIDERS: Admitting Provider Psychiatry & Neurology Psychiatry; Visit Provider Psychiatry & Neurology Psychiatry | DX: F20.1 Disorganized schizophrenia (principal) | CPT/HCPCS: 90792; 99231; 99232; 99238 ==

== ENCOUNTER → 2023-04-01 04:24 | Outpatient (BNV) | payer OTHER, SELFPAY | PROVIDERS: Admitting Provider Psychiatry & Neurology Psychiatry; Visit Provider Student in an Organized Health Care Education/Training Program | DX: Z02.2 Encounter for examination for admission to residential institution (principal) | CPT/HCPCS: 99429 ==

== ENCOUNTER 2023-05-03 15:20 | Inpatient (IN) | payer OTHER, SELFPAY ==
[2023-05-03 15:53] VITALS: BP 151/96; BP 161/98; PULSE 88; PULSE 94; RESP 14; TEMP 36.7; O2SAT 100; O2SAT 98; BMI 29.5
[2023-05-03 16:50] LABS: MANUAL DIFF FLAG NO
[2023-05-03 16:54] LABS: Appearance Urine Clear; Color Urine Yellow; Glucose Urine UA Negative (Negative); Leukocyte Esterase Urine Negative (Negative); Nitrite Urine Negative (Negative); Specific Gravity - Urine >= 1.030 (1.005-1.025); Urine Blood Negative (Negative); Urine Ketones Trace mg/dL (Negative); Urine Protein Negative (Neg-Trace)
[2023-05-03 17:01] LABS: Basophils Absolute Auto 0.1 X10*3/uL (0.0-0.2); Basophils Percent Auto 0.5 % (0-2); Eosinophils Absolute Auto 0.3 X10*3/uL (0.0-0.4); Eosinophils Percent Auto 2.7 % (0-4); Hematocrit 36.5 % (42.0-52.0); Hemoglobin 12.4 g/dl (14.0-18.0); Imm Gran Abs Auto 0.02 X10*3/uL (0.00-0.03); Imm Gran Pct Auto 0.2 % (0.0-0.4); Lymphocytes Absolute Auto 4.2 X10*3/uL (1.2-4.9); Lymphocytes Percent Auto 39.8 % (20-40); Mean Corpuscular Hemoglobin 26.8 pg (27.0-33.0); Mean Platelet Volume 10.4 fL (9.4-12.4); Monocytes Absolute Auto 0.5 X10*3/uL (0.1-1.2); Neutrophils Absolute Auto 5.4 x10*3/uL (2.0-8.3); Neutrophils Percent Auto 51.8 % (45-73); Platelet Count 279 X10*3/uL (160-400); Red Blood Count 4.62 X10*6/uL (4.60-5.80); White Blood Count 10.5 X10*3/uL (4.8-10.8)
[2023-05-03 17:08] LABS: Amphetamine Screen Urine Not Detected (Not Detect); Barbiturates, Urine Not Detected (Not Detect); Benzodiazepines Screen Urine Not Detected (Not Detect); Cannabinoid Screen Urine Not Detected (Not Detect); Cocaine Screen Urine Not Detected (Not Detect); Fentanyl, urine Not Detected (Not Detect); Opiate Screen Urine Not Detected (Not Detect); Phencyclidine Screen Urine Not Detected (Not Detect)
[2023-05-03 17:17] LABS: Alanine Aminotransferase 23 U/L (0-40); Alkaline Phosphatase 134 U/L (39-117); Anion Gap 11 (12-20); Aspartate Amino Transferase 25 U/L (5-37); Bilirubin Total 0.3 mg/dL (0.0-1.0); Blood Urea Nitrogen 12 mg/dL (9-16); Calcium 9.4 mg/dL (8.4-10.2); Carbon Dioxide 25 mmol/L (22-29); Chloride 108 mmol/L (96-108); Creatinine Clr Calc Pharmacy 146.2; Estimated Glomerular Filt Rate > 60; Ethanol < 10 mg/dL; Glucose Random 151 mg/dL (60-115); Potassium 3.1 mmol/L (3.3-5.1); Sodium 141 mmol/L (135-145); Total Protein 6.9 g/dL (6.5-8.0)
[2023-05-03 17:22] LABS: COVID-19 Test Negative (Negative); IDNOW Serial# 9DB6401D
--- NOTE | 2023-05-03 17:30 | ED.PSYCH ---
HPI - Psych General Chief Complaint: Psychiatric Symptoms Stated Complaint: SEC 12,NON MED COMPL,FTT PER EMS Time Seen by Provider: 05/03/23 15:59 History of Present Illness HPI Narrative: Patient is 42 years old was at the homeless nursing home patient refusing his medication attempted to walk into the streets. Currently denies any suicidal homicidal ideation. Sent in for further evaluation. Patient has a history of schizophrenia. Related Data Previous Rx's Medication Instructions Recorded haloperidol 20 mg tablet 20 mg PO DAILY 30 days #30 tabs 04/22/23 haloperidol decanoate 50 mg/mL 100 mg (2 mL) IM Q28D 30 days #4 mL 04/22/23 intramuscular solution lisinopril 20 mg tablet 20 mg PO DAILY 30 days #30 tabs 04/22/23 Allergies Allergy/AdvReac Type Severity Reaction Status Date / Time No Known Allergies Allergy Verified 05/03/23 18:32 Review of Systems Review of Systems: No fever no chills no chest pain or shortness of breath Yes all other systems are reviewed and are negative PMFSH Past Medical History Medical History Schizophrenia Social History Social History Household Members: None Housing: Homeless Do you presently have visiting nurse or other home services: No Unable to assess alcohol history related to: Refusing to respond Patient Tobacco Use Status: Current everyday Tobacco user Tobacco use type: Cigarette Smoked in Last 30 Days: No Second Hand Smoke Exposure: No Use of substances other than those prescribed or required for medical reasons: Refusing to respond Advance Directives: No Advance Directives Information Provided: No service: No Sexual orientation: Unable to collect Physical Exam Vital Signs: Vital Signs: Last Vital Signs Temp 98.0 F 05/03/23 15:53 Pulse 94 05/03/23 15:53 Resp 14 05/03/23 18:32 BP 151/96 H 05/03/23 15:53 Pulse Ox 98 05/03/23 15:53 O2 Del Method Room Air 05/03/23 15:53 BMI result Body Mass Index 29.5 Appearance: Alert. No acute distress. Eyes: Pupils equal, round and reactive to light. ENT: Pharynx normal. Neck: Normal inspection. Neck supple. No lymph nodes noted. No crepitus CVS: Normal heart rate and rhythm. Pulses normal. Normal S1 and S2 Respiratory: No respiratory distress. Breath sounds normal. No Wheezing. No rales Abdomen: Soft and nontender. No rigidity. No distention. good BS x4 Skin: Skin warm and dry. Normal skin color. Normal skin turgor. Extremities: No lower extremity edema. Neurovascular intact to all extremities. No Lacerations. No Rash Neuro: No motor deficit. No sensory deficit. Moving all extermities. No slurred speech. Moving all extremities cranial nerves grossly intact Medical Decision Making Medical Decision Making [facility] Narrative: Will get crisis to evaluate patient. Baseline labs ordered. In stable condition. Positive history of psychiatric disorder history of being homeless now feels very depressed. Currently awaiting crisis evaluation. Admission/Observation Consideration of admission/observation: Escalation of care including admission/observation considered Lab Data [facility] Lab Attestation statement: I reviewed the patient's lab results. 05/03/23 16:43 05/03/23 16:43 Labs: Lab Results 05/03/23 05/03/23 Range/Units 16:38 16:43 WBC 10.5 (4.8-10.8) X10*3/uL RBC 4.62 (4.60-5.80) X10*6/uL Hgb 12.4 L (14.0-18.0) g/dl Hct 36.5 L (42.0-52.0) % MCV 79.0 L (80.0-98.0) fL MCH 26.8 L (27.0-33.0) pg MCHC 34.0 (31.0-36.0) g/dl RDW 14.0 (11.0-16.0) % Plt Count 279 (160-400) X10*3/uL MPV 10.4 (9.4-12.4) fL Immature Gran % (Auto) 0.2 (0.0-0.4) % Neut % (Auto) 51.8 (45-73) % Lymph % (Auto) 39.8 (20-40) % [place] % (Auto) 5.0 (2-11) % Eos % (Auto) 2.7 (0-4) % Baso % (Auto) 0.5 (0-2) % Lymph # (Auto) 4.2 (1.2-4.9) X10*3/uL [place] # (Auto) 0.5 (0.1-1.2) X10*3/uL Eos # (Auto) 0.3 (0.0-0.4) X10*3/uL Baso # (Auto) 0.1 (0.0-0.2) X10*3/uL Abs Immat Gran (auto) 0.02 (0.00-0.03) X10*3/uL Absolute Neuts (auto) 5.4 (2.0-8.3) x10*3/uL Absolute Nucleated RBC 0.000 (0.0-0.012) X10*3/uL Nucleated RBC % (auto) 0.0 (0.0-0.2) /100WBC Sodium 141 (135-145) mmol/L Potassium 3.1 L D (3.3-5.1) mmol/L Chloride 108 (96-108) mmol/L Carbon Dioxide 25 (22-29) mmol/L Anion Gap 11 L (12-20) BUN 12 (9-16) mg/dL Creatinine 0.74 (0.5-1.4) mg/dL Estim Creat Clear Calc 146.2 Estimated GFR > 60 Random Glucose 151 H (60-115) mg/dL Calcium 9.4 (8.4-10.2) mg/dL Total Bilirubin 0.3 (0.0-1.0) mg/dL AST 25 (5-37) U/L ALT 23 (0-40) U/L Alkaline Phosphatase 134 H (39-117) U/L Total Protein 6.9 (6.5-8.0) g/dL Albumin 4.0 (3.5-5.0) g/dL Urine Color Yellow Urine Appearance Clear Urine pH 6.0 (5.0-9.0) Ur Specific [place] >= 1.030 H (1.005-1.025) Urine Protein Negative (Neg-Trace) mg/dL Urine Glucose (UA) Negative (Negative) mg/dL Urine Ketones Trace (Negative) mg/dL Urine Blood Negative (Negative) Urine Nitrite Negative (Negative) Ur Leukocyte Esterase Negative (Negative) Urine Opiates Screen Not Detected (Not Detect) Urine Fentanyl Screen Not Detected (Not Detect) Ur Barbiturates Screen Not Detected (Not Detect) Ur Phencyclidine Scrn Not Detected (Not Detect) Ur Amphetamines Screen Not Detected (Not Detect) U Benzodiazepines Scrn Not Detected (Not Detect) Urine Cocaine Screen Not Detected (Not Detect) U Marijuana (THC) Screen Not Detected (Not Detect) Ethyl Alcohol < 10 mg/dL COVID-19 (ROSALIA) Negative (Negative) COVID-19 Clin Com See Note External Record Review External record reviewed: Inpatient record Social Determinants Patient?s care significantly limited by Social Determinants of Health including: Inadequate housing and Problems related to primary support group Discharge Plan Discharge Clinical Impression: Depression Patient Disposition: Still a Patient Prescriptions: No Action lisinopril 20 mg Tablet 20 mg PO DAILY 30 Days Qty: 30 1RF Protocol: Hold for SBP< HOLD for SBP < : 90 haloperidol 20 mg tablet 20 mg PO DAILY 30 Days Qty: 30 1RF haloperidol decanoate 50 mg/mL Solution 100 mg IM Q28D 30 Days Qty: 4 1RF Rx Instructions: due on 05/11/23 Interventions: [place]-Suicide Risk Severity Scale Last Done: 05/03/23 15:56
[2023-05-03 18:32] VITALS: RESP 14
[2023-05-03 23:50] VITALS: BP 130/90; PULSE 92; RESP 16; TEMP 36.6; O2SAT 97
--- NOTE | 2023-05-04 10:10 | PC.NURSE ---
continues to rest quietly in room with even and unlabored respirations. no obvious signs/symptoms of distress noted.
[2023-05-04 10:26] VITALS: BP 139/93; PULSE 101; TEMP 37.1; O2SAT 99
--- NOTE | 2023-05-04 11:48 | PC.NURSE ---
call franco to [facility] to complete med rec
--- NOTE | 2023-05-04 13:22 | PC.NURSE ---
Addendum entered by Marina Basilio 05/04/23 15:34: continues to refuse ekg at this time Original Note: attempted to obtain ekg, patient refusing at this time.
--- NOTE | 2023-05-04 13:30 | PHA.MEDREC ---
Pharmacy Consult ? Medication Reconciliation Pharmacy has reviewed the medication reconciliation completed Ericka. Suki Lyles, PharmD
--- NOTE | 2023-05-04 18:59 | PC.NURSE ---
patient appears to remain at rest at present respirations are even and unlabored patient appears in no distress
--- NOTE | 2023-05-04 19:09 | PC.NURSE ---
patient appears to remain at rest at present respirations are even and unlabored patient appears in no distress
--- NOTE | 2023-05-04 22:44 | PC.NURSE ---
patint asks for snacks, bandaids, patient asks when will i be dc'ed...told client he would have msu daily if not admitted.
--- NOTE | 2023-05-04 22:47 | MHC.CARE ---
RAD Team conducted a bed search for this pt, bed search is exhausted and will resume tomorrow (05/05) if deemed necessary
--- NOTE | 2023-05-05 03:11 | MHC.EDTECH ---
pt continues to refuse EKG, RN made aware.
[2023-05-05 04:43] VITALS: BP 146/103; PULSE 89; RESP 16; TEMP 36.8; O2SAT 94
--- NOTE | 2023-05-05 07:31 | PC.NURSE ---
Report taken from Swapna RN assumed care of pt at 0700. Pt A&Ox3 ambulatory in pod. Breakfast tray provided, 100% consumed. Plan for IP admission today? Safety maintained in pod, will continue to monitor.
[2023-05-05 07:46] VITALS: RESP 18
--- NOTE | 2023-05-05 08:06 | PC.NURSE ---
Pt refusing vital signs and EKG. aware.
[2023-05-05] MEDS: lisinopriL 20 MG TABLET PO (08:32)
[2023-05-05] MEDS: HaloperidoL 5 MG TABLET 20 MG PO (08:32)
--- NOTE | 2023-05-05 12:26 | PC.NURSE ---
Pt resting on bed eyes closed, safety maintained in BH pod, S12 IPBS with possible admit upstairs later today.
--- NOTE | 2023-05-05 13:35 | PC.NURSE ---
Report given to M3 RN.
--- NOTE | 2023-05-05 13:38 | PC.NURSE ---
M3 RN Kirstin requesting replacement of pt's potassium level 3.1 (drawn on 05/03). MD Gonzalez made aware via tigertext.
[2023-05-05] MEDS: Potassium Chloride Packet 20 MEQ PACKET 40 MEQ PO (13:55)
[2023-05-05 14:25] VITALS: BP 140/88; PULSE 94; RESP 18; TEMP 36.9; O2SAT 99
[2023-05-05 16:25] VITALS: BMI 27.3
--- NOTE | 2023-05-05 16:26 | PC.ADMIT ---
Nursing admission note: 42 year old DX: Schizophrenia Unspecified. Referred for treatment by CARE team. Signed conditional voluntary for admission. Patient was assessed in the community by [facility]. He was assessed after he was found laying outside of [facility] Living Room building on the street. Recent discharge from , had refused all medication following discharge, appears to have decompensated. Patient engaged although guarded. Latency in response, alogia. Speech is soft and low in volume. Patient vague, providing responses that are incongruent with crisis evaluation assessment. Poor insight into admission stating he was picked up and brought here and does not know why. Patient dressed in hospital attire, cooperative with skin check. Blackened area to Right 1st and 2nd toe. Malodorous, unkempt. Does not appear to be attending to ADL's. Intermittent eye contact. Patient denies mood disturbances, denies depression or sadness, denies SI/HI. Denies anxiety. Denies perceptual disturbances, no overt psychosis or expressed delusions. Appears preoccupied, suspicious. Denies sleep or appetite disturbances. Reports he has no current providers. Long history of hospitalizations, respite admissions and medication non adherence. Denies medical problems. NKA. TOX screen negative. Patient is current daily smoker, declines NRT at this time. Declined flu shot. Patient oriented to unit, placed on unit safety checks. See nursing assessment/crisis evaluation for further details.
[2023-05-05 18:00] VITALS: RESP 14; TEMP 36.6
[2023-05-06 08:20] VITALS: BP 134/82; PULSE 99; RESP 16; TEMP 37; O2SAT 98
[2023-05-06] MEDS: HaloperidoL 5 MG TABLET 20 MG PO (08:24)
[2023-05-06] MEDS: lisinopriL 20 MG TABLET PO (08:25)
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
--- NOTE | 2023-05-06 12:04 | HO.WOUND ---
Wound Consult: Initial 42yr old M? admitted to [facility] on 05/05/23 to the Behavioral Health Unit - See progress notes and H&P for detailed history.? Wound consult placed for Right Great Toe and second toe wounds POA.? Arrival to bedside accompanied by his direct care nurse the patient was not agreeable to assessment and photo documentation. Ultimately he was willing to remove his sock but once I began to touch his toe and attempt to lift the dry darkly pigmented non-adherent epidermal layer he began to protectively guard his foot. He did not allow for further assessment - he was not agreeable to a foot soaking but was agreeable to a shower and to clean his foot while showering. Given the limited assessment etiology is difficult to determine at this time however the tissue that was observed under the darkly pigmented lifting dry epidermal layer was intact and healthy in appearance. I would encourage the patient to cleanse or allow staff to cleanse his foot and then apply Dermacerin cream to both feet. The cream will provide moisture and soften the dry lifting tissue. TT to Dr. Ortiz. Inpatient wound care nurse will continue to follow. Recommendations: 1. Right Foot - Cleanse with routine showering pr foot soaks if patient is willing with PH balanced soap, dry well. Apply Dermacerin cream twice daily and reapply socks. Re-consult wound care Nurse for wound deterioration or wound changes.
--- NOTE | 2023-05-06 14:27 | PC.NURSE ---
Submitted 3 day notice, up on Wednesday05/12/23. Treatment team notified.
[2023-05-06] MEDS: hydrOXYzine HCL 25 MG TABLET PO (17:02)
[2023-05-07 07:15] VITALS: BP 119/57; PULSE 81; RESP 24; TEMP 36.8; O2SAT 94
[2023-05-07] MEDS: lisinopriL 20 MG TABLET PO (08:09)
[2023-05-07] MEDS: HaloperidoL 5 MG TABLET 20 MG PO (08:09)
[2023-05-07 20:03] VITALS: BP 146/91; PULSE 100; RESP 18; TEMP 36.4; O2SAT 98
--- NOTE | 2023-05-07 22:24 | HO.PSYCHPN ---
Subjective Subjective Date of Service: 05/07/23 Reason For Visit: psychosis Interim History: pt consistently napping throughout the day. rousable. agrees to maribeth de la vega rescheduled for HS rather than in the morning. no complaints or requests. per staff, 3-day notice up . refusing showers or foot soaks. c/o tingling in his fingers. slept well. Mental Status Exam Mental Status Exam Narrative: Pt is alert and oriented; behavior is calm, guarded; patient is not in distress; dressed in casual attire with unkempt hair, but adequate hygiene; mood is good and affect blunted; eye contact mostly avoidant; Speech is on the quiet side, but overall normal rate, decr prosody; no psychomotor retardation present; thought process unclear, seems linear; Thought content is on discharge; no SI/HI/AVH expressed. Diagnostics Vital Signs (24Hr): Vital Signs - 24 hr 05/07/23 07:15 05/07/23 19:45 Temperature 98.2 F 97.5 F Pulse Rate 81 116 H Respiratory Rate 24 H 18 Blood Pressure 119/57 L 147/86 H Pulse Oximetry 94 97 Oxygen Delivery Method Room Air Room Air BMI result Body Mass Index 27.3 Labs 05/03/23 16:43 05/03/23 16:43 Medications Medications Current Medications Acetaminophen (Acetaminophen 325 Mg Tablet) 650 mg PO Q6H PRN PRN Reason: Headache/Pain Mild Scale (1-3) Al Hydroxide/Mg Hydroxide (Magnesium Hydrox/Alum Hydrox 30 Ml Oral.Susp) 30 ml PO Q6H PRN PRN Reason: Heartburn/Nausea Haloperidol (Haloperidol 5 Mg Tablet) 20 mg PO BEDTIME KATE Haloperidol Decanoate (Haloperidol Decanoate 50 Mg/Ml Vial) 100 mg IM Q28D KATE Hydroxyzine HCl (Hydroxyzine Hcl 25 Mg Tablet) 25 mg PO Q6H PRN PRN Reason: Anxiety Last Admin: 05/06/23 17:02 Dose: 25 mg Lisinopril (Lisinopril 20 Mg Tablet) 20 mg PO DAILY KATE; Protocol Last Admin: 05/07/23 08:09 Dose: 20 mg Magnesium Hydroxide (Milk Of Magnesia 30 Ml Oral.Susp) 30 ml PO DAILY PRN PRN Reason: Constipation Multi-Ingred Cream/Lotion/Oil/Oint (Mineral Oil/Petrolatum,White 106 Gm Tube) 1 appl TOPICAL BID KATE; Protocol Last Admin: 05/07/23 21:08 Dose: Not Given Nicotine Polacrilex (Nicotine Polacrilex 2 Mg Gum) 4 mg BUCCAL Q2H PRN PRN Reason: Nicotine Cravings Trazodone HCl (Trazodone Hcl 50 Mg Tablet) 50 mg PO BEDTIME MRX1 PRN PRN Reason: Insomnia Allergies Allergies Allergy/AdvReac Type Severity Reaction Status Date / Time No Known Allergies Allergy Verified 05/03/23 18:32 Assessment & Plan Assessment & Plan (1) Schizophrenia: Status: Acute Code(s): F20.9 - Schizophrenia, unspecified Plan 05/06: restart home meds 05/07: signed 3-day notice, up 05/12. continue home medication regimen. compliant while inpatient. Reason for continued inpatient stay Substantial Risk for: harm to self, inability to function and rapid decompensation Time Spent With Patient Time: Total time managing care of this patient today ____ minutes.
[2023-05-08 08:30] VITALS: BP 109/56; PULSE 108; RESP 16; TEMP 37.4; O2SAT 99
[2023-05-08] MEDS: lisinopriL 20 MG TABLET PO (08:30)
--- NOTE | 2023-05-08 11:03 | HO.PSYCHPN ---
Subjective Subjective Date of Service: 05/08/23 Reason For Visit: psychosis Subjective Notes: Conditional Voluntary and 3 Day Interim History: Pt mostly in bed, minimally interacting with peers or staff. He is very guarded and not forthcoming in terms of delusional content. No SI/HI. He reports hand pain but when asked to elaborate or on exam he denies any pain. No behavioral concerns. appears internally preoccupied although denies. Review of Systems Review of Systems No fever no chills no chest pain or shortness of breath Yes all other systems are reviewed and are negative Mental Status Exam Mental Status Exam Narrative: Pt is alert and oriented; behavior is calm, guarded; patient is not in distress; dressed in casual attire with unkempt hair, but adequate hygiene; mood is good and affect blunted; eye contact mostly avoidant; Speech is on the quiet side, but overall normal rate, decr prosody; no psychomotor retardation present; thought process unclear, seems linear; Thought content is on discharge; no SI/HI/AVH expressed. Diagnostics Vital Signs (24Hr): Vital Signs - 24 hr 05/07/23 20:03 05/08/23 08:30 Temperature 97.5 F 99.3 F Pulse Rate 100 108 H Respiratory Rate 18 16 Blood Pressure 146/91 H 109/56 L Pulse Oximetry 98 99 Oxygen Delivery Method Room Air Room Air BMI result Body Mass Index 27.3 Labs 05/03/23 16:43 05/08/23 12:02 Medications Medications Current Medications Acetaminophen (Acetaminophen 325 Mg Tablet) 650 mg PO Q6H PRN PRN Reason: Headache/Pain Mild Scale (1-3) Al Hydroxide/Mg Hydroxide (Magnesium Hydrox/Alum Hydrox 30 Ml Oral.Susp) 30 ml PO Q6H PRN PRN Reason: Heartburn/Nausea Haloperidol (Haloperidol 5 Mg Tablet) 20 mg PO BEDTIME KATE Haloperidol Decanoate (Haloperidol Decanoate 50 Mg/Ml Vial) 100 mg IM Q28D KATE Hydroxyzine HCl (Hydroxyzine Hcl 25 Mg Tablet) 25 mg PO Q6H PRN PRN Reason: Anxiety Last Admin: 05/06/23 17:02 Dose: 25 mg Lisinopril (Lisinopril 20 Mg Tablet) 20 mg PO DAILY KATE; Protocol Last Admin: 05/08/23 08:30 Dose: 20 mg Magnesium Hydroxide (Milk Of Magnesia 30 Ml Oral.Susp) 30 ml PO DAILY PRN PRN Reason: Constipation Multi-Ingred Cream/Lotion/Oil/Oint (Mineral Oil/Petrolatum,White 106 Gm Tube) 1 appl TOPICAL BID [facility]; Protocol Last Admin: 05/07/23 21:08 Dose: Not Given Nicotine Polacrilex (Nicotine Polacrilex 2 Mg Gum) 4 mg BUCCAL Q2H PRN PRN Reason: Nicotine Cravings Trazodone HCl (Trazodone Hcl 50 Mg Tablet) 50 mg PO BEDTIME MRX1 PRN PRN Reason: Insomnia Allergies Allergies Allergy/AdvReac Type Severity Reaction Status Date / Time No Known Allergies Allergy Verified 05/03/23 18:32 Assessment & Plan Assessment & Plan (1) Schizophrenia: Status: Acute Code(s): F20.9 - Schizophrenia, unspecified Plan 05/06: restart home meds 05/07: signed 3-day notice, up 05/12. continue home medication regimen. compliant while inpatient. 05/08 continue tx. Reason for continued inpatient stay Substantial Risk for: inability to function Time Spent With Patient Time: Total time managing care of this patient today ____ minutes.
[2023-05-08 12:25] LABS: Anion Gap 12 (12-20); Blood Urea Nitrogen 19 mg/dL (9-16); Calcium 9.7 mg/dL (8.4-10.2); Carbon Dioxide 24 mmol/L (22-29); Chloride 104 mmol/L (96-108); Creatinine Clr Calc Pharmacy 117.1; Estimated Glomerular Filt Rate > 60; Glucose Random 121 mg/dL (60-115); Iron 55 mcg/dL (45-160); Magnesium 1.8 mg/dL (1.6-2.6); Percent Iron Saturation 19 % (15-50); Sodium 136 mmol/L (135-145); Total Iron Binding Capacity 293 mcg/dL (228-428); Unsaturated Iron Binding 238 ug/dL
[2023-05-08 18:28] VITALS: BP 151/104; PULSE 109; RESP 20; TEMP 36.3; O2SAT 98
[2023-05-08] MEDS: HaloperidoL 5 MG TABLET 20 MG PO (22:35)
--- NOTE | 2023-05-09 | ECG_ITS ---
Test Reason : vivesy Blood Pressure : / mmHG Vent. Rate : 099 BPM Atrial Rate : 099 BPM P-R Int : 148 ms QRS Dur : 070 ms QT Int : 324 ms P-R-T Axes : 072 066 012 degrees QTc Int : 415 ms Normal sinus rhythm Nonspecific T wave abnormality Abnormal ECG When compared with ECG of 14-APR-2023 13:37, No significant change was found Referred By: Destiny Chau Electronically Signed By:SHARLENE MCGARRY MD
[2023-05-09 09:15] VITALS: BP 131/98; PULSE 120; RESP 20; TEMP 36.7; O2SAT 98
[2023-05-09] MEDS: lisinopriL 20 MG TABLET PO (09:16)
--- NOTE | 2023-05-09 15:36 | P.PNPSI_ITS ---
Subjective Subjective Date of Service: 05/09/23 Reason For Visit: psychosis Interim History: Pt mostly in bed, minimally interacting with peers or staff. He is very guarded and not forthcoming in terms of delusional content. No SI/HI. He reports hand pain but when asked to elaborate or on exam he denies any pain. No behavioral concerns. appears internally preoccupied although denies. Review of Systems Review of Systems No fever no chills no chest pain or shortness of breath Yes all other systems are reviewed and are negative Mental Status Exam Mental Status Exam Narrative: Pt is alert and oriented; behavior is calm, guarded; patient is not in distress; dressed in casual attire with unkempt hair, but adequate hygiene; mood is good and affect blunted; eye contact mostly avoidant; Speech is on the quiet side, but overall normal rate, decr prosody; no psychomotor retardation present; thought process unclear, seems linear; Thought content is on discharge; no SI/HI/AVH expressed. Diagnostics Vital Signs (24Hr): Vital Signs - 24 hr 05/08/23 18:28 05/09/23 09:15 Temperature 97.3 F 98.1 F Pulse Rate 109 H 120 H Respiratory Rate 20 20 Blood Pressure 151/104 H 131/98 H Pulse Oximetry 98 98 Oxygen Delivery Method Room Air Room Air BMI result Body Mass Index 27.3 Labs 05/03/23 16:43 05/08/23 12:02 Labs: Laboratory Results - last 48 hr 05/08/23 12:02 Sodium 136 Potassium 4.0 D Chloride 104 Carbon Dioxide 24 Anion Gap 12 BUN 19 H Creatinine 0.83 Estim Creat Clear Calc 117.1 Estimated GFR > 60 Random Glucose 121 H Calcium 9.7 Magnesium 1.8 Iron 55 TIBC 293 % Saturation 19 Unsat Iron Binding 238 Medications Medications Current Medications Acetaminophen (Acetaminophen 325 Mg Tablet) 650 mg PO Q6H PRN PRN Reason: Headache/Pain Mild Scale (1-3) Al Hydroxide/Mg Hydroxide (Magnesium Hydrox/Alum Hydrox 30 Ml Oral.Susp) 30 ml PO Q6H PRN PRN Reason: Heartburn/Nausea Haloperidol (Haloperidol 5 Mg Tablet) 20 mg PO BEDTIME KATE Last Admin: 05/08/23 22:35 Dose: 20 mg Haloperidol Decanoate (Haloperidol Decanoate 50 Mg/Ml Vial) 100 mg IM Q28D [facility] Hydroxyzine HCl (Hydroxyzine Hcl 25 Mg Tablet) 25 mg PO Q6H PRN PRN Reason: Anxiety Last Admin: 05/06/23 17:02 Dose: 25 mg Lisinopril (Lisinopril 20 Mg Tablet) 20 mg PO DAILY [facility]; Protocol Last Admin: 05/09/23 09:16 Dose: 20 mg Magnesium Hydroxide (Milk Of Magnesia 30 Ml Oral.Susp) 30 ml PO DAILY PRN PRN Reason: Constipation Multi-Ingred Cream/Lotion/Oil/Oint (Mineral Oil/Petrolatum,White 106 Gm Tube) 1 appl TOPICAL BID KATE; Protocol Last Admin: 05/09/23 09:17 Dose: Not Given Nicotine Polacrilex (Nicotine Polacrilex 2 Mg Gum) 4 mg BUCCAL Q2H PRN PRN Reason: Nicotine Cravings Trazodone HCl (Trazodone Hcl 50 Mg Tablet) 50 mg PO BEDTIME MRX1 PRN PRN Reason: Insomnia Allergies Allergies Allergy/AdvReac Type Severity Reaction Status Date / Time No Known Allergies Allergy Verified 05/03/23 18:32 Assessment & Plan Assessment & Plan (1) Schizophrenia: Status: Acute Code(s): F20.9 - Schizophrenia, unspecified Plan 05/06: restart home meds 05/07: signed 3-day notice, up 05/12. continue home medication regimen. compliant while inpatient. 05/08 continue tx 05/09 continue tx. Reason for continued inpatient stay Substantial Risk for: inability to function Time Spent With Patient Time: Total time managing care of this patient today ____ minutes.
[2023-05-09 19:50] VITALS: RESP 16
[2023-05-09] MEDS: HaloperidoL 5 MG TABLET 20 MG PO (21:42)
[2023-05-10 07:35] VITALS: BP 131/88; PULSE 108; RESP 14; TEMP 36.9; O2SAT 99
[2023-05-10] MEDS: lisinopriL 20 MG TABLET PO (08:22)
[2023-05-10] MEDS: Acetaminophen 325 MG TABLET 650 MG PO ×2 (09:38→17:07)
[2023-05-10 20:00] VITALS: BP 142/101; PULSE 98; RESP 15; TEMP 36.6; O2SAT 99
--- NOTE | 2023-05-10 20:30 | HO.PSYCHPN ---
Subjective Subjective Date of Service: 05/10/23 Reason For Visit: psychosis Interim History: Pt mostly in bed, minimally interacting with peers or staff. He is very guarded and not forthcoming in terms of delusional content. No SI/HI. He reports hand pain but when asked to elaborate or on exam he denies any pain. No behavioral concerns. appears internally preoccupied although denies. Review of Systems Review of Systems No fever no chills no chest pain or shortness of breath Yes all other systems are reviewed and are negative Mental Status Exam Mental Status Exam Narrative: Pt is alert and oriented; behavior is calm, guarded; patient is not in distress; dressed in casual attire with unkempt hair, but adequate hygiene; mood is good and affect blunted; eye contact mostly avoidant; Speech is on the quiet side, but overall normal rate, decr prosody; no psychomotor retardation present; thought process unclear, seems linear; Thought content is on discharge; no SI/HI/AVH expressed. Diagnostics Vital Signs (24Hr): Vital Signs - 24 hr 05/10/23 07:35 Temperature 98.4 F Pulse Rate 108 H Respiratory Rate 14 Blood Pressure 131/88 Pulse Oximetry 99 Oxygen Delivery Method Room Air BMI result Body Mass Index 27.3 Labs 05/03/23 16:43 05/08/23 12:02 Medications Medications Current Medications Acetaminophen (Acetaminophen 325 Mg Tablet) 650 mg PO Q6H PRN PRN Reason: Headache/Pain Mild Scale (1-3) Last Admin: 05/10/23 17:07 Dose: 650 mg Al Hydroxide/Mg Hydroxide (Magnesium Hydrox/Alum Hydrox 30 Ml Oral.Susp) 30 ml PO Q6H PRN PRN Reason: Heartburn/Nausea Haloperidol (Haloperidol 5 Mg Tablet) 20 mg PO BEDTIME KATE Last Admin: 05/09/23 21:42 Dose: 20 mg Haloperidol Decanoate (Haloperidol Decanoate 50 Mg/Ml Vial) 100 mg IM Q28D [facility] Hydroxyzine HCl (Hydroxyzine Hcl 25 Mg Tablet) 25 mg PO Q6H PRN PRN Reason: Anxiety Last Admin: 05/06/23 17:02 Dose: 25 mg Lisinopril (Lisinopril 20 Mg Tablet) 20 mg PO DAILY KATE; Protocol Last Admin: 05/10/23 08:22 Dose: 20 mg Magnesium Hydroxide (Milk Of Magnesia 30 Ml Oral.Susp) 30 ml PO DAILY PRN PRN Reason: Constipation Multi-Ingred Cream/Lotion/Oil/Oint (Mineral Oil/Petrolatum,White 106 Gm Tube) 1 appl TOPICAL BID [facility]; Protocol Last Admin: 05/10/23 08:23 Dose: Not Given Nicotine Polacrilex (Nicotine Polacrilex 2 Mg Gum) 4 mg BUCCAL Q2H PRN PRN Reason: Nicotine Cravings Trazodone HCl (Trazodone Hcl 50 Mg Tablet) 50 mg PO BEDTIME MRX1 PRN PRN Reason: Insomnia Allergies Allergies Allergy/AdvReac Type Severity Reaction Status Date / Time No Known Allergies Allergy Verified 05/03/23 18:32 Assessment & Plan Assessment & Plan (1) Schizophrenia: Status: Acute Code(s): F20.9 - Schizophrenia, unspecified Plan 05/06: restart home meds 05/07: signed 3-day notice, up 05/12. continue home medication regimen. compliant while inpatient. 05/08 continue tx 05/09 continue tx 05/10 given one time dose of gabapentin for tingling of hand- reassess if effective and then schedule Reason for continued inpatient stay Substantial Risk for: inability to function Time Spent With Patient Time: Total time managing care of this patient today ____ minutes.
[2023-05-10] MEDS: Gabapentin 300 MG CAPSULE PO (21:03)
[2023-05-10] MEDS: HaloperidoL 5 MG TABLET 20 MG PO (21:03)
[2023-05-11 07:24] VITALS: BP 124/80; PULSE 104; RESP 16; TEMP 36.6; O2SAT 99
[2023-05-11] MEDS: lisinopriL 20 MG TABLET PO (08:22)
[2023-05-11 08:24] VITALS: BP 160/98; PULSE 112
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
[2023-05-11 18:00] VITALS: BP 134/79; PULSE 109; RESP 20; TEMP 36.5; O2SAT 95
[2023-05-11] MEDS: HaloperidoL 5 MG TABLET 20 MG PO (21:10)
[2023-05-12 07:42] VITALS: BP 118/63; PULSE 116; RESP 22; TEMP 36.8; O2SAT 94
== END 2023-05-12 11:20 | disposition home or self-care (01) | DRG 885 ==
LOC: HO.ED 22:22 → HO.PADLT16 05-05 13:25
PROVIDERS: Social Worker; Admitting Provider Psychiatry & Neurology Psychiatry; Emergency Provider Emergency Medicine Emergency Medical Services; Visit Provider Psychiatry & Neurology Psychiatry
DX: F20.9 Schizophrenia, unspecified (principal); Z59.01 Sheltered homelessness; F17.210 Nicotine dependence, cigarettes, uncomplicated; Z20.822 Contact with and (suspected) exposure to COVID-19; Z91.148 Patient's other noncompliance with medication regimen for other reason; Z71.6 Tobacco abuse counseling; Z79.899 Other long term (current) drug therapy
CPT/HCPCS: 36415; 80048; 80053; 80307; 81003; 83540; 83735; 85025; 87635; 93005; 99285; S9485

== ENCOUNTER 2023-05-05 13:21 | Outpatient (BNV) | payer OTHER, SELFPAY | END 2023-05-09 10:34 | PROVIDERS: Admitting Provider Psychiatry & Neurology Psychiatry; Emergency Provider Emergency Medicine Emergency Medical Services; Visit Provider Internal Medicine Cardiovascular Disease | DX: F20.9 Schizophrenia, unspecified (principal); R94.31 Abnormal electrocardiogram [ECG] [EKG] | CPT/HCPCS: 93010 ==

== ENCOUNTER → 2023-05-05 13:21 | Outpatient (BNV) | payer OTHER, SELFPAY | PROVIDERS: Admitting Provider Psychiatry & Neurology Psychiatry; Emergency Provider Emergency Medicine Emergency Medical Services; Visit Provider Psychiatry & Neurology Psychiatry | DX: F20.9 Schizophrenia, unspecified (principal) | CPT/HCPCS: 90792; 99231; 99232; 99238 ==